=== PATIENT | male | born 1970 | race Caucasian/White ===

== ENCOUNTER 2018-10-09 14:51 | Emergency (ER) | payer BC, SELFPAY ==
[2018-10-09 14:52] VITALS: BP 132/71; PULSE 66; RESP 17; TEMP 36.3; O2SAT 98; BMI 23.7
--- NOTE | 2018-10-09 15:09 | CT_ITS ---
STUDY: CT ABDOMEN AND PELVIS WITH CONTRAST REASON FOR EXAM: Male, 48 years old. Abdominal pain and cramping RADIATION DOSAGE (If Supplied By Facility): CTDIvol = ( 11.66 ) mGy, DLP = ( 767.20 ) mGycm TECHNIQUE: Transaxial images were obtained from the dome of the diaphragm to the symphysis pubis with oral contrast. 100 ml of Isovue 300 contrast was administered. Sagittal and coronal images were reconstructed. Individualized dose optimization techniques were used for this CT. COMPARISON: Prior study of 06/04/2016 FINDINGS: The visualized lung bases are unremarkable. The visualized portions of the heart are within normal limits. Normal liver. Normal gallbladder and extrahepatic biliary system. Normal spleen. Normal pancreas. Normal bilateral adrenal glands. Normal right kidney. Normal left kidney. Normal visualized stomach. There is mild dilatation with air-fluid levels on several loops of small bowel in the right abdomen and pelvis. Evaluation of the colon is limited due to nonopacification with oral contrast. There are postsurgical changes of the anorectal region. Status post subtotal colectomy changes are again noted. Normal abdominal aorta. Normal inferior vena cava. Normal retroperitoneum. Normal urinary bladder. The prostate is mildly enlarged. There are postsurgical changes of the anterior right abdominal wall. There is a small fat-containing right inguinal hernia. There is again noted an intraosseous hemangioma of the L4 body. CT/Abdomen/Pelvis WITH Contrast IMPRESSION: 1. There is mild dilatation with air-fluid levels of several loops of small bowel in the right abdomen and pelvis, suggestive of focal ileus. 2. Status post subtotal colectomy. Postsurgical changes seen at the anorectal junction. 3. Mildly enlarged prostate. 4. Small fat-containing right inguinal hernia. 5. There is no evidence of free intra-abdominal or intrapelvic air, fluid, or inflammatory process. Electronically Signed: Cory Liu MD at 17:28 EST , Service support ,
--- NOTE | 2018-10-09 15:12 | ED.VISSUMM ---
- ER Visit Summary Date of Service: 10/09/18 Chief Complaint: Abdominal pain History of Present Illness: The patient is a 48 M presenting with abdominal pain, diarrhea. Patient states that he started having abdominal cramping on Saturday. He had diarrhea on Saturday and Saturday. The diarrhea has since stopped. He complains of nausea with no vomiting. He denies blood in his stool. He has history of ulcerative colitis. He has had a colectomy and pelvic pouch surgery to connect his small bowel to his rectum. He has history of previous small bowel obstructions. He denies fever or other complaints. Physical Examination: Vitals are stable. Patient is afebrile. Alert no acute distress. HEENT exam is unremarkable. Neck is supple. Lungs are clear and equal bilaterally. Heart is regular rate and rhythm. Abdomen is soft mild diffuse tenderness with no rebound or guarding Extremities are unremarkable. Skin is warm and dry. No focal neurologic deficit. Remainder of exam is unremarkable. Emergency Department Course and Treatment: Patient given IV fluids, Zofran, Dilaudid. CBC, chemistries unremarkable. Liver lipase are normal. Urinalysis unremarkable. CT abdomen pelvis IV and oral contrast shows there is mild dilatation with air-fluid levels of several loops of small bowel in the right abdomen and pelvis, suggestive of focal ileus. Status post subtotal colectomy. Postsurgical changes seen at the anorectal junction. Mildly enlarged prostate. Small fat-containing right inguinal hernia. There is no evidence of free intra-abdominal or intrapelvic air, fluid, or inflammatory process. On reevaluation, patient is feeling improved. He is given a prescription for Bentyl and Zofran. He is advised to follow-up with his GI physician in [place]. He is advised to return to ED if he has any worsening complaints. Disposition: Discharge home Impression: Abdominal pain, diarrhea, ileus This note was generated with [employer] dictation software. It may contain incorrect words, spelling, and punctuation that were not noted in review of the chart prior to signing ED Disposition - Plan for ED Patient: Chief Complaint: Abd Pain Instructions: ED Abdominal Pain Unkn Cause Prescriptions: Ondansetron [Zofran Odt] 4 mg PO Q8H PRN PRN #10 tablet PRN Reason: Nausea Dicyclomine HCl [Bentyl] 20 mg PO TIDAC #20 capsule Referrals: Brant Gotti MD [Primary Care Provider] -
--- NOTE | 2018-10-09 15:15 | ED.DCSUM_ITS ---
- ER Visit Summary Date of Service: 10/09/18 Chief Complaint: Abdominal pain History of Present Illness: The patient is a 48 M presenting with abdominal pain, diarrhea. Patient states that he started having abdominal cramping on Saturday. He had diarrhea on Saturday and Saturday. The diarrhea has since st opped. He complains of nausea with no vomiting. He denies blood in his stool. He has history of ulcerative colitis. He has had a colectomy and pelvic pouch surgery to connect his small bowel to his rectum. He has history of previous small bowel obstructions. He denies fever or other complaints. Physical Examination: Vitals are stable. Patient is afebrile. Alert no acute distress. HEENT exam is unremarkable. Neck is supple. Lungs are clear and equal bilaterally. Heart is regular rate and rhythm. Abdomen is soft mild diffuse tenderness with no rebound or guarding Extremities are unremarkable. Skin is warm and dry. No focal neurologic deficit. Remainder of exam is unremarkable. Emergency Department Course and Treatment: Patient given IV fluids, Zofran, Dilaudid. CBC, chemistries unremarkable. Liver lipase are normal. Urinalysis unremarkable. CT abdomen pelvis IV and oral contrast shows there is mild dilatation with air-fluid levels of several loops of small bowel in the right abdomen and pelvis, suggestive of focal ileus. Status post subtotal colectomy. Postsurgical changes seen at the anorectal junction. Mildly enlarged prostate. Small fat-containing right inguinal hernia. There is no evidence of free intra- abdominal or intrapelvic air, fluid, or inflammatory process. On reevaluation, patient is feeling improved. He is given a prescription for Bentyl and Zofran. He is advised to follow-up with his GI physician in [place]. He is advised to return to ED if he has any worsening complaints. Disposition: Discharge home Impression: Abdominal pain, diarrhea, ileus This note was generated with [employer] dictation software. It may contain incorrect words, spelling, and punctuation that were not noted in review of the chart prior to signing ED Disposition - Plan for ED Patient: Chief Complaint: Abd Pain Instructions: ED Abdominal Pain Unkn Cause Prescriptions: Ondansetron [Zofran Odt] 4 mg PO Q8H PRN PRN #10 tablet PRN Reason: Nausea Dicyclomine HCl [Bentyl] 20 mg PO TIDAC #20 capsule Referrals: Brant Gotti MD [Primary Care Provider] -
[2018-10-09 15:21] LABS: Absolute Lymphocyte Count 1.38 X10^3/ul (0.83-4.51); Basophil# 0.01 X10^3/uL; Basophil% 0.1 % (0-1); Eosinophil# 0.14 X10^3/uL; Hematocrit 45.2 % (40-54); Lymphocyte # 1.38 X10^3/ul (4.0); Lymphocyte % 19.7 % (19-41); Mean Corp Hgb Conc 33.2 g/gl (32-36); Mean Corpuscular Hgb 27.5 pg (27.0-32.0); Mean Corpuscular Volume 82.9 fL (80-94); Mean Platelet Vol. 9.9 fl (6.2-12.0); Monocyte# 0.44 X10^3/uL; Monocyte% 6.3 % (0-10); Neutrophil # 5.03 X10^3/uL (2.7-7.7); Neutrophil % 71.9 % (47-70); Platelet Count 175 K/mm3 (150-450); RBC Distribution Width CV 12.6 % (11.6-14.6); RBC Distribution Width SD 37.5 fl (35.1-43.9); Red Blood Count 5.45 M/mm3 (4.6-6.2)
[2018-10-09 15:29] LABS: POSITIVE COUNT NO; POSITIVE DIFFERENTIAL NO; POSITIVE MORPHOLOGY NO
[2018-10-09] MEDS: HYDROmorphone 1 MG/ML Syringe 0.5 MG IV (15:29)
[2018-10-09] MEDS: Ondansetron 4 MG/2 ML Vial IV (15:29)
[2018-10-09] MEDS: 0.9% Normal Saline 1,000 ML 1000 ML IV (15:30)
[2018-10-09 15:37] LABS: AST(SGOT) 21 U/L (15-37); Alanine Aminotransfer ALT/SGPT 38 U/L (16-61); Albumin, Serum 3.6 g/dL (3.2-5.0); Alkaline Phosphatase 78 U/L (45-117); Anion Gap 8 (5-15); BUN 12 mg/dL (7-18); BUN/Creat Ratio 14.9 RATIO (10-20); Bilirubin, Direct 0.11 mg/dL (0.00-0.30); Calcium,Total 8.8 mg/dL (8.5-10.1); Chloride 105 mmol/L (98-107); EST Glomerular Filtration Rate 109 mL/min (>60); Est Glom Filt Rate - Afr Amer 132 mL/min (>60); Estimated Creatinine Clearance 123.94 ml/min; Globulin 3.5 g/dL (2.2-4.2); Glucose 96 mg/dL (74-106); Lipase 119 U/L (73-393); Potassium 3.7 mmol/L (3.5-5.1); Protein, Total 7.1 g/dL (6.4-8.2); Sodium Level 140 mmol/L (136-145)
[2018-10-09 16:06] LABS: Bacteria 0 SEEN /hpf (None Seen); Mucous, Urine 0 SEEN /hpf (<or=2+); Red Blood Cells-Urine 0 SEEN /hpf (0-5); Squamous Epithelial Cells - UA 0 SEEN /hpf (0-5); White Blood Cells 0 SEEN /hpf (0-5)
[2018-10-09 16:16] VITALS: TEMP 36.8
[2018-10-09 16:18] LABS: Color, Urine Yellow (Yellow); Glucose, Dipstick Normal (Normal); Ketone-Dipstick 5 mg/dl (Negative); Leukocyte Esterase-Dipstick Negative /ul (Negative); Nitrite-Dipstick Negative (Negative); Occult Blood-Urine Negative /ul (Negative); Protein-Dipstick Negative (Negative); Urine Bilirubin Dipstick Negative (Negative); Urine Clarity Clear (Clear); Urine Urobilinogen Normal (Normal)
[2018-10-09 17:24] VITALS: BP 108/70; PULSE 66; RESP 18; TEMP 36.7; O2SAT 96
--- NOTE | 2018-10-09 17:43 | ED.DEP ---
ED Disposition - Plan for ED Patient: Chief Complaint: Abd Pain Instructions: ED Abdominal Pain Unkn Cause Prescriptions: Ondansetron [Zofran Odt] 4 mg PO Q8H PRN PRN #10 tablet PRN Reason: Nausea Dicyclomine HCl [Bentyl] 20 mg PO TIDAC #20 capsule Referrals: Brant Gotti MD [Primary Care Provider] -
[2018-10-09 18:01] VITALS: PULSE 66; RESP 18; TEMP 36.7
== END 2018-10-09 18:02 | disposition home or self-care (01) ==
PROVIDERS: Emergency Provider Emergency Medicine; Family Provider Family Medicine; PCP Family Medicine
DX: K56.7 Ileus, unspecified (principal); R10.84 Generalized abdominal pain; R19.7 Diarrhea, unspecified; Z90.49 Acquired absence of other specified parts of digestive tract; Z79.899 Other long term (current) drug therapy
CPT/HCPCS: 74177; 80048; 80076; 81001; 83690; 85025; 96361; 96374; 96375; 99283; J7030; Q9967; A4216; J2405

== ENCOUNTER → 2019-11-30 11:38 | Outpatient (CLI) | payer BC, SELFPAY ==
[2019-11-18 12:37] VITALS: BMI 23.7
--- NOTE | 2019-11-30 12:49 | STRESSREP ---
Stress Test Report Exercise stress test. 49-year-old man with a history of chest pain. Stress protocol: Resting EKG demonstrates normal sinus rhythm with a rate of 65 bpm normal intervals are noted resting blood pressure is 108/70 mmHg. The patient exercised according to the regular Geovany protocol for a total duration of 12 minutes and 20 seconds. The maximum heart rate attained was 173 bpm which was 101% of maximum predicted heart rate the maximum workload was 14 metabolic equivalents. The patient maintained sinus rhythm throughout the recording. At rest there were no ST or T wave changes noted to suggest ischemia at peak exercise upsloping ST changes were noted with no meet the criteria for ischemia. The resting blood pressure was 108/70 with a peak blood pressure 156/68. The rate-pressure product was 25,500. The test was terminated due to attainment of target heart rate. No clinical angina was noted no arrhythmias were noted. Conclusion: Normal exercise stress test with no evidence of ischemia at a high workload. No arrhythmias noted. Good functional capacity.
== END ==
PROVIDERS: PCP Family Medicine; Referring Provider Internal Medicine Cardiovascular Disease; Visit Provider Internal Medicine Cardiovascular Disease
DX: I48.0 Paroxysmal atrial fibrillation (principal)
CPT/HCPCS: 93017

== ENCOUNTER 2021-01-05 09:56 | Outpatient (RCR) | payer BC, SELFPAY ==
[2020-06-14 14:40] VITALS: BMI 24.1
[2021-01-05] MEDS: COVID-19 VACC, MRNA(PFIZER)/PF 30 MCG/0.3 ML SYRINGE IM (07:27)
[2021-01-26] MEDS: COVID-19 VACC, MRNA(PFIZER)/PF 30 MCG/0.3 ML SYRINGE IM (07:29)
== END 2021-01-05 23:59 ==
LOC: IMMUN 09:56
PROVIDERS: PCP Family Medicine; Visit Provider Family Medicine
DX: Z23 Encounter for immunization (principal)
CPT/HCPCS: 0001A; 0002A; 91300

== ENCOUNTER 2024-09-23 13:50 | Emergency (ER) | payer BC, SELFPAY ==
[2024-09-23 13:51] VITALS: BP 133/80; PULSE 73; RESP 16; TEMP 36.3; O2SAT 98; BMI 24.7
[2024-09-23 15:06] LABS: Absolute Lymphocyte Count 1.56 X10^3/uL (0.83-4.51); Absolute Neutrophil Count 3.5 X10^3/uL (2.0-7.7); Basophil# 0.02 X10^3/uL; Basophil% 0.4 % (0-1); Eosinophil# 0.13 X10^3/uL; Eosinophils% 2.3 % (0-5); Hematocrit 47.8 % (40-54); Hemoglobin 15.4 g/dL (13.0-16.5); Lymphocyte # 1.56 X10^3/ul (0.83-4.51); Lymphocyte % 27.9 % (19-41); Mean Corp Hgb Conc 32.2 g/dL (32-36); Mean Corpuscular Hgb 26.9 pg (27.0-32.0); Mean Corpuscular Volume 83.4 fL (80-94); Mean Platelet Vol. 10.1 fl (6.2-12.0); Monocyte# 0.36 X10^3/uL; Monocyte% 6.4 % (0-10); NRBC Flagged by Analyzer 0 % (0-5); Neutrophil # 3.49 X10^3/uL (2.7-7.7); Neutrophil % 62.5 % (47-70); Platelet Count 227 K/mm3 (150-450); RBC Distribution Width CV 12.4 % (11.6-14.6); RBC Distribution Width SD 37.5 fl (35.1-43.9); Red Blood Count 5.73 M/mm3 (4.6-6.2); White Blood Count 5.6 K/mm3 (4.4-11.0)
[2024-09-23 15:19] LABS: AST(SGOT) 16 U/L (15-37); Alanine Aminotransfer ALT/SGPT 43 U/L (16-61); Albumin, Serum 3.8 g/dL (3.2-5.0); Alkaline Phosphatase 90 U/L (45-117); Anion Gap 4 (5-15); BUN 11 mg/dL (7-18); BUN/Creat Ratio 12.7 RATIO (10-20); Chloride 106 mmol/L (98-107); Creatinine, Serum 0.87 mg/dL (0.70-1.30); EST Glomerular Filtration Rate 97 mL/min (>60); Est Glom Filt Rate - Afr Amer 118 mL/min (>60); Estimated Creatinine Clearance 106.54 ml/min; Globulin 3.7 g/dL (2.2-4.2); Glucose 97 mg/dL (74-106); Potassium 4.3 mmol/L (3.5-5.1); Protein, Total 7.5 g/dL (6.4-8.2); Sodium Level 139 mmol/L (136-145)
--- NOTE | 2024-09-23 15:35 | CT_ITS ---
STUDY: CT ABDOMEN AND PELVIS WITH CONTRAST REASON FOR EXAM: Male, 54 years old. abdominal pain RADIATION DOSAGE (If Supplied By Facility): CTDIvol = ( 10.42 ) mGy, DLP = ( 569.75 ) mGycm TECHNIQUE: Transaxial images were obtained from the dome of the diaphragm to the symphysis pubis with oral contrast. Oral and amp; IV Gastrografin and amp; 100mL Isovue-300 was administered. Sagittal and coronal images were reconstructed. Individualized dose optimization techniques were used for this CT. COMPARISON: 10/09/2018. FINDINGS: The visualized lung bases are unremarkable. The visualized portions of the heart are within normal limits. Normal liver. Normal gallbladder and extrahepatic biliary system. Normal spleen. Normal pancreas. Normal bilateral adrenal glands. Normal right kidney. Normal left kidney. Cannot exclude stomach wall thickening. No dilated loops of bowel or evidence for obstruction. There has been subtotal colectomy. Normal appearance of the small bowel. No evidence of bowel wall thickening. Absent appendix. Normal abdominal aorta. Normal inferior vena cava. Normal retroperitoneum. Normal urinary bladder. There is enlargement of the prostate gland. Surgical deformity of the right lower abdominal wall, stable and consistent with previous ostomy. No incisional hernia. There is a right-sided inguinal hernia containing adipose tissue. Normal osseous structures. CT/Abdomen/Pelvis WITH Contrast IMPRESSION: Patient is status post subtotal colectomy. Only the rectum remains. The small bowel is normal in caliber and appearance. No other definite acute or significant abnormality seen. Electronically Signed: Jesse Gonzalez MD at 17:55 EST ,
--- NOTE | 2024-09-23 15:37 | EDS_ITS ---
HPI HPI - GI History of Present Illness Chief Complaint: Abd Pain Detail of Chief Complaint: Abdominal pain Informant: patient Narrative Narrative: Patient presents with abdominal pain that he initially noticed around Thanksgiving and at that time had a sharp pain in the lower abdomen that then resolved. He is progressively had lower abdomen pain since then that became worse. Since around 10 AM now the pain in the upper abdomen. Patient has history of ulcerative colitis and has a J-pouch currently. Patient denies any fevers. He said no vomiting. Denies any blood or black tarry stool. He was seen by primary care physician today in the office and referred to the emergency department. Patient has had prior surgeries for adhesions. His initial colectomy was done in [facility] and subsequent surgeries were done in [facility]. [facility] Medical History BPH (benign prostatic hyperplasia) History of ulcerative colitis Nonrheumatic mitral (valve) prolapse Paroxysmal atrial fibrillation Premature ventricular contractions Recurrent intestinal obstruction VSD (ventricular septal defect) Home Medications ?Medication ?Instructions ?Recorded ?Last Taken ?Type Lactobacills gasseri-Bifidobac 1 cap PO DAILY 06/19/22 Unknown History bifidum,longum 1.5 billion cell capsule (TextualAds) glucosamine sulfate 2KCl 1,000 mg 2,000 mg PO DAILY 06/19/22 Unknown History tablet (Glucosamine Relief) atenolol 25 mg tablet 12.5 mg (1/2 x 25 mg) PO .PRN PRN 09/07/24 Unknown Rx Elevated Heart Rate #30 tabs flecainide 100 mg tablet 100 mg PO .PRN PRN A-fib #14 tabs 09/07/24 Unknown Rx Allergy/AdvReac Type Severity Reaction Status Date / Time Penicillins Allergy Hives Verified 09/23/24 13:51 propoxyphene napsylate (From Allergy Hives Verified 09/23/24 13:51 Darvocet-N) metronidazole (From Flagyl) AdvReac Vomiting Verified 09/23/24 13:51 Family History Father Hypertension Grandfather Heart disease CVA (cerebral vascular accident) Grandmother CVA (cerebral vascular accident) Surgical History Na's pouch of intestine History of colectomy History of open reduction and internal fixation (ORIF) procedure Social History Smoking Status: Never smoker alcohol intake: never substance use type: does not use caffeine: No ROS ROS ED Review of Systems ROS Unobtainable: other Constitutional Constitutional ED: Reports lethargy; Denies chills, fever(s), sweats or weight loss Eyes Eyes: Denies blurry vision, change in vision or diplopia ENT ENT ED: Denies rhinorrhea or sore throat Cardiovascular Cardiovascular: Denies chest pain, orthopnea or racing heartbeat Respiratory/Chest Respiratory/Chest: Denies cough, dyspnea, dyspnea on exertion, orthopnea or sputum Gastrointestinal Gastrointestinal: Reports abdominal pain; Denies diarrhea, nausea or vomiting Genitourinary Genitourinary ED: Denies dysuria, hematuria or urinary frequency Musculoskeletal Musculoskeletal: Denies arthralgias, back pain, myalgias or neck pain Integumentary Denies abscess, Abrasions or rash Neurologic Neurologic: Denies headache(s) or weakness Psychiatric Psychiatric: Denies anxiety, depression or suicidal thoughts Endocrine Endocrinology: Denies polydipsia, polyphagia or polyuria Hematologic/Lymphatic Hematologic/Lymphatic: Denies easy bleeding, easy bruising or lymphadenopathy Allergic/Immunologic Allergic/Immunologic ED: Denies mouth swelling, tongue swelling or urticaria EXAM Physical Exam Const Vital Signs: 09/23/24 13:51 09/23/24 15:50 09/23/24 17:00 Temperature 97.3 F L Temperature Source Temporal Pulse Rate 73 82 75 Respiratory Rate 16 18 18 Blood Pressure 133/80 H Blood Pressure Mean 97 Pulse Ox 98 98 98 Oxygen Delivery Method Room Air Room Air Room Air Positive well nourished and well developed General Appearance ED: well developed and NAD HEENT Reports TM's clear and moist mucous membranes normocephalic and atraumatic; Negative for trauma or tenderness Tympanic Membrane ED: Yes TM's clear Eyes PERRL and EOMs intact bilaterally General Eye ED: Negative for pale conjunctiva or scleral icterus Neck no lymphadenopathy, supple and no JVD General: Negative for tenderness Chest Wall inspection of chest normal and palpation of chest normal Chest: Negative for tenderness Resp normal respiratory effort and clear to auscultation bilaterally Effort and Inspection: Negative for respiratory distress or pain with movement Auscultation: Negative for rhonchi, wheezes or diminished lung sounds Cardio regular rate, regular rhythm, S1 normal heart sound, S2 normal heart sound and no murmurs Peripheral Pulses: pulses 2+ throughout GI normal to inspection, nondistended, normoactive bowel sounds, soft to palpation and no masses GI Narrative: Tenderness diffusely with some guarding to the lower abdomen. There is no rebound, rigidity, or peritoneal signs. No masses palpated. Back/Spine no CVA tenderness and no thoracic nor lumbar tenderness Extremity normal to inspection General Extremety ED: Negative for edema General Extremity: Negative for edema Neuro oriented x3, CN's II-XII intact bilaterally, no sensory deficits noted and gait normal Sensorium / Orientation: awake, alert, oriented to person, oriented to place and oriented to time Motor Exam: strength 5/5 throughout and strength abnormal Psych mental status grossly normal Skin no rashes or lesions noted and no wounds MDM MDM MDM Narrative Medical decision making narrative: Patient presents with abdominal pain since 10 AM. Started few days ago initially but became worse at 10 AM. He has had no significant vomiting. Still having stool from his rectum without any blood in it or black tarry stool. IV line established. CBC with differential obtained showing a 5.6 with hemoglobin 15 and platelet count of 227. Chemistries unremarkable. LFTs were normal. Lactate normal at 1.0. Urinalysis was normal. Patient had a CT scan of the abdomen pelvis with IV and p.o. contrast that was unremarkable. This point patient will be discharged to home. He was given initially 2 mg of morphine and 4 mg of Zofran and his pain was resolved. Etiology of his pain is unclear. Advised to follow-up with his primary care physician within next 3 to 5 days. Patient advised return if worsening pain, fever, vomiting, bloody stools, or condition worsening way. Lab Data Attestation: I reviewed the patient's lab results. Labs: Laboratory Results - last 24 hr 09/23/24 09/23/24 14:50 15:47 WBC 5.6 RBC 5.73 Hgb 15.4 Hct 47.8 MCV 83.4 MCH 26.9 L MCHC 32.2 RDW Std Deviation 37.5 RDW Coeff of [place] 12.4 Plt Count 227 MPV 10.1 Immature Gran % (Auto) 0.500 Neut % (Auto) 62.5 Lymph % (Auto) 27.9 [place] % (Auto) 6.4 Eos % (Auto) 2.3 Baso % (Auto) 0.4 Absolute Neuts (auto) 3.5 Absolute Lymphs (auto) 1.56 Nucleated RBC % 0 Sodium 139 Potassium 4.3 Chloride 106 Carbon Dioxide 29.0 Anion Gap 4 L BUN 11 Creatinine 0.87 Estim Creat Clear Calc 106.54 Est GFR (MDRD) Af Amer 118 Est GFR (MDRD) Non-Af 97 BUN/Creatinine Ratio 12.7 Glucose 97 Lactic Acid 1.0 Calcium 9.0 Total Bilirubin 0.30 AST 16 ALT 43 Alkaline Phosphatase 90 Total Protein 7.5 Albumin 3.8 Globulin 3.7 Albumin/Globulin Ratio 1.0 Urine Color Yellow Urine Clarity Clear Urine pH 6.0 Ur Specific [place] 1.020 Urine Protein 15 H Urine Glucose (UA) Normal Urine Ketones Negative Urine Occult Blood Negative Urine Nitrite Negative Urine Bilirubin Negative Urine Urobilinogen Normal Ur Leukocyte Esterase Negative Urine RBC 0 SEEN Urine WBC 0-5 SEEN Ur Squamous Epith Cells 0-5 SEEN Urine Bacteria 1+ Urine Mucus 2+ Radiography Diagnostic Testing: Clinical Impression(s) from Imaging Studies Abdomen/Pelvis CT 09/23/24 15:35 IMPRESSION: Patient is status post subtotal colectomy. Only the rectum remains. The small bowel is normal in caliber and appearance. No other definite acute or significant abnormality seen. Electronically Signed: Jesse Gonzalez MD at 17:55 EST Reading Location ID and State: [facility] / [place] , Service support , Discharge Plan Triage Chief Complaint: Abd Pain ED Provider: Hitesh Parson Dx/Rx/DC Orders Clinical Impression: Abdominal pain Instructions: ED Abdominal Pain Unkn Cause Male... Prescriptions: No Action glucosamine sulfate 2KCl [Glucosamine Relief] 1,000 mg tablet 2,000 mg PO DAILY Rx Instructions: administer with meals TextualAds 1.5 billion cell capsule 1 cap PO DAILY atenolol 25 mg tablet 12.5 mg PO .PRN PRN (Reason: Elevated Heart Rate) Qty: 30 1RF flecainide 100 mg tablet 100 mg PO .PRN PRN (Reason: A-fib) Qty: 14 1RF Primary Care Provider: Jose Angel Alexandre Referrals: Jose Angel Alexandre MD [Primary Care Provider] - 3-5 Days Print Language: Turkmen Disposition Disposition: Home, Self Care
[2024-09-23] MEDS: Ondansetron 4 MG/2 ML Vial IV (15:49)
[2024-09-23 15:50] VITALS: PULSE 82; RESP 18; O2SAT 98
[2024-09-23] MEDS: Morphine 2 MG/ML Syringe IV (15:50)
[2024-09-23 15:59] LABS: Red Blood Cells-Urine 0 SEEN /hpf (0-5)
[2024-09-23 16:05] LABS: Color, Urine Yellow (Yellow); Glucose, Dipstick Normal (Normal); Ketone-Dipstick Negative (Negative); Leukocyte Esterase-Dipstick Negative /ul (Negative); Nitrite-Dipstick Negative (Negative); Occult Blood-Urine Negative /ul (Negative); Protein-Dipstick 15 mg/dl (Negative); Urine Bilirubin Dipstick Negative (Negative); Urine Clarity Clear (Clear); Urine Urobilinogen Normal (Normal)
[2024-09-23 16:22] LABS: Bacteria 1+ /hpf (None Seen); Mucous, Urine 2+ /hpf (<or=2+); Squamous Epithelial Cells - UA 0-5 SEEN /hpf (0-5); White Blood Cells 0-5 SEEN /hpf (0-5)
[2024-09-23 17:00] VITALS: PULSE 75; RESP 18; O2SAT 98
[2024-09-23 18:47] VITALS: PULSE 59; RESP 18; TEMP 36.4; O2SAT 97
== END 2024-09-23 18:48 | disposition home or self-care (01) ==
PROVIDERS: Emergency Provider Emergency Medicine; PCP Family Medicine; Visit Provider Emergency Medicine
DX: R10.10 Upper abdominal pain, unspecified (principal); Z93.4 Other artificial openings of gastrointestinal tract status; K51.90 Ulcerative colitis, unspecified, without complications; Z88.0 Allergy status to penicillin; Z88.1 Allergy status to other antibiotic agents; Z87.19 Personal history of other diseases of the digestive system; Z90.49 Acquired absence of other specified parts of digestive tract
CPT/HCPCS: 74177; 80053; 81001; 83605; 85025; 96374; 96375; 99283; A4216; J2405

== ENCOUNTER → 2025-01-14 | Outpatient (CLI) | payer BC, SELFPAY ==
--- NOTE | 2025-01-14 09:52 | ECHOD_ITS ---
Reason For Study Reason For Study: ATRIAL FIB/FLUTTER Procedure This was a 2D Doppler, Color Flow transthoracic echocardiogram. Exam performed in department. Left Ventricle Normal LV size. Mild concentric left ventricular hypertrophy. Small membranous VSD noted. Left ventricular systolic function is normal. The left ventricular ejection fraction is 65 %. No regional wall motion abnormalities noted. Right Ventricle Normal RV size. Normal systolic function. Atria Normal left atrium. Normal right atrium. Mitral Valve Normal mitral valve. Tricuspid Valve Normal tricuspid valve. Aortic Valve Trisinus/trileaflet aortic valve. Pulmonic Valve Normal pulmonic valve. Great Vessels Normal aortic root. The pulmonary artery is normal size. Inferior vena cava collapse with respiration. Pericardium/Pleural No pericardial effusion. MMode/2D Measurements & Calculations LVIDd: 4.2 cm IVSd: 1.2 cm LAV(MOD- bp): 53.9 ml LVIDs: 3.1 cm LVPWd: 1.2 cm LAV(MOD- bp) Indexed: 26.5 ml/m2 RVDd: 4.0 cm FS: 25.2 % LAV(MOD- sp2): 50.8 ml LAV(MOD- sp4): 43.7 ml SV(MOD- sp4): 46.7 ml LVAd ap4: 25.1 cm2 LVAd ap2: 27.2 cm2 LVLd ap4: 7.6 cm LVLd ap2: 8.0 cm SI(MOD- sp4): 23.0 ml/m2 EDV(MOD-sp4): 70.4 ml EDV(MOD-sp2): 76.1 ml EDV(sp4-el): 71.0 ml EDV(sp2-el): 78.1 ml LVAs ap4: 12.3 cm2 LVAs ap2: 14.6 cm2 LVLs ap4: 5.6 cm LVLs ap2: 6.7 cm ESV(MOD-sp4): 23.6 ml ESV(MOD-sp2): 27.1 ml ESV(sp4-el): 23.0 ml ESV(sp2-el): 26.7 ml EF(MOD-sp4): 66.4 % EF(MOD-sp2): 64.4 % EF(sp4-el): 67.7 % SV(MOD-sp2): 49.1 ml SV(sp4-el): 48.0 ml LA A4 area: 14.8 cm2 SI(MOD-sp2): 24.1 ml/m2 LA dimension(2D): 2.9 cm TAPSE: 2.2 cm RA A4 area: 12.7 cm2 Time Measurements MV dec time: 0.22 sec Doppler Measurements & Calculations MV E max darius: 64.5 cm/sec Lat Peak E' Darius: 7.3 cm/sec Med Peak E' Darius: 9.1 cm/sec MV A max darius: 43.0 cm/sec E/E' lat: 8.8 E/E' med: 7.1 MV E/A: 1.5 MV V2 max: 64.7 cm/sec MV P1/2t max darius: 68.5 cm/sec Ao V2 max: 85.4 cm/sec MV max P.7 mmHg MV P1/2t: 51.0 msec Ao max P.9 mmHg MV V2 mean: 37.9 cm/sec MV dec slope: 393.0 cm/sec2 Ao V2 mean: 62.8 cm/sec MV mean P.65 mmHg Ao mean P.7 mmHg MV V2 VTI: 17.1 cm MVA(P1/2t): 4.3 cm2 Ao V2 VTI: 16.9 cm AV (velocity ratio): 0.90 LV V1 max: 80.9 cm/sec PA V2 max: 143.3 cm/sec LV V1 max P.6 mmHg PA V2 mean: 100.4 cm/sec LV V1 mean P.4 mmHg LV V1 mean: 55.2 cm/sec LV V1 VTI: 15.2 cm ECHO/Echo Complete Interpretation Summary Normal LV size. Left ventricular systolic function is normal. The left ventricular ejection fraction is 65 %. Small membranous VSD noted. Ordering Physician: Hugo Duran Referring Physician: Klever Alexandre Performed By: Marii Martinez, MAVISCS, RVT
== END | disposition home or self-care (01) ==
PROVIDERS: PCP Family Medicine; Referring Provider Internal Medicine Cardiovascular Disease; Visit Provider Internal Medicine Cardiovascular Disease
DX: I48.0 Paroxysmal atrial fibrillation (principal)
CPT/HCPCS: 93306

== ENCOUNTER 2025-04-16 17:59 | Observation (INO) | payer BC, SELFPAY ==
[2025-04-16] VITALS (9 sets, daily range): BP systolic 84–109; BP diastolic 63–77; PULSE 57–128; RESP 14–20; TEMP 36.4–36.8; O2SAT 95–98; BMI 24.0; BMI 23.8
[2025-04-16] MEDS: 0.9% Normal Saline (1000mL) 1,000 ML 999 ML IV (18:00)
[2025-04-16 18:16] LABS: Absolute Lymphocyte Count 2.45 X10^3/uL (0.83-4.51); Absolute Neutrophil Count 6.1 X10^3/uL (2.0-7.7); Basophil# 0.07 X10^3/uL; Basophil% 0.7 % (0-1); Eosinophil# 0.28 X10^3/uL; Hematocrit 49.6 % (40-54); Hemoglobin 16.5 g/dL (13.0-16.5); Lymphocyte # 2.45 X10^3/ul (0.83-4.51); Lymphocyte % 25.9 % (19-41); Mean Corp Hgb Conc 33.3 g/dL (32-36); Mean Corpuscular Hgb 27.3 pg (27.0-32.0); Mean Corpuscular Volume 82.1 fL (80-94); Mean Platelet Vol. 10.1 fl (6.2-12.0); Monocyte# 0.57 X10^3/uL; NRBC Flagged by Analyzer 0 % (0-5); Neutrophil # 6.06 X10^3/uL (2.7-7.7); Platelet Count 253 K/mm3 (150-450); RBC Distribution Width CV 12.5 % (11.6-14.6); RBC Distribution Width SD 37.1 fl (35.1-43.9); Red Blood Count 6.04 M/mm3 (4.6-6.2); White Blood Count 9.5 K/mm3 (4.4-11.0)
--- NOTE | 2025-04-16 18:20 | RAD_ITS ---
PROCEDURE: CHEST 1 VIEW (PORTABLE) 04/16/2025 REASON FOR EXAM: CHEST PAIN TECHNIQUE: Frontal view of the chest. COMPARISON: None. FINDINGS: Hardware: None. Heart: The heart size is normal. Lungs: No consolidation, pleural effusion or pneumothorax. Bones: Degenerative changes are identified within the thoracic spine. RAD/Chest 1 View (Portable) IMPRESSION: Negative Chest. Reading Location: [id number]
--- NOTE | 2025-04-16 18:33 | EDS_ITS ---
HPI History of Present Illness Chief Complaint: Palpitations Detail of Chief Complaint: Palpitations with history of A-fib Informant: patient Narrative Narrative: Patient presents the emergency department complaint of palpitations and history of atrial fibrillation. Patient thinks he went in A-fib last evening around 11:30 PM. He took atenolol at home and flecainide that he takes as needed and this did not resolve the issue and he presents for evaluation. His last episode of A-fib was about 6 months ago and that was abated with medications at home. Prior to that his last episode was over 10 years ago and at that time he needed a cardioversion. He is not anticoagulated. He denies any significant chest discomfort. Denies shortness of breath. Denies recent illness. [facility] Medical History Nonrheumatic mitral (valve) prolapse Premature ventricular contractions BPH (benign prostatic hyperplasia) VSD (ventricular septal defect) Paroxysmal atrial fibrillation Recurrent intestinal obstruction History of ulcerative colitis Home Medications Medication Instructions Recorded Last Taken Type glucosamine sulfate 2KCl 1,000 mg 2,000 mg PO DAILY Unknown History tablet (Glucosamine Relief) atenolol 25 mg tablet 12.5 mg (1/2 x 25 mg) PO .MO N PRN 09/07/24 Unknown Rx Elevated Heart Rate #30 tabs flecainide 100 mg tablet 100 mg PO .PRN PRN A-fib #14 tabs 09/07/24 Unknown Rx Lactobacills gasseri-Bifidobac 1 cap PO DAILY PRN Blink for iPhone and Android health 11/12/24 Unknown History bifidum,longum 1.5 billion cell capsule ([employer]) omeprazole 40 mg capsule,delayed 20 mg PO DAILY Unknown History release multivitamin 1 tab PO QAM 04/16/25 Unknow n History Allergy/AdvReac Type Severity Reaction Status Date / Time Penicillins Allergy Hives Verified 04/16/25 17:59 propoxyphene napsylate (From Allergy Hives Verified 04/16/25 17:59 Darvocet-N) metronidazole (From Flagyl) AdvReac Vomiting Verified 04/16/25 17:59 Family History Father Hypertension Grandfather Heart disease CVA (cerebral vascular accident) Grandmother CVA (cerebral vascular accident) Surgical History History of open reduction and internal fixation (ORIF) procedure Na's pouch of intestine History of colectomy Social History Smoking Status: Never smoker alcohol intake: never substance use type: does not use caffeine: No ROS ROS ED Review of Systems ROS Unobtainable: other Constitutional Constitutional ED: Reports lethargy; Denies chills, fever(s), sweats or weight loss Eyes Eyes: Denies blurry vision, change in vision or diplopia ENT ENT ED: Denies rhinorrhea or sore throat Cardiovascular Cardiovascular: Reports palpitations and racing heartbeat; Denies chest pain or orthopnea Respiratory/Chest Respiratory/Chest: Denies cough, dyspnea, dyspnea on exertion, orthopnea or sputum Gastrointestinal Gastrointestinal: Denies abdominal pain, diarrhea, nausea or vomiting Genitourinary Genitourinary ED: Denies dysuria, hematuria or urinary frequency Musculoskeletal Musculoskeletal: Denies arthralgias, back pain, myalgias or neck pain Integumentary Denies abscess, Abrasions or rash Neurologic Neurologic: Denies headache(s) or weakness Psychiatric Psychiatric: Denies anxiety, depression or suicidal thoughts Endocrine Endocrinology: Denies polydipsia, polyphagia or polyuria Hematologic/Lymphatic Hematologic/Lymphatic: Denies easy bleeding, easy bruising or lymphadenopathy Allergic/Immunologic Allergic/Immunologic ED: Denies mouth swelling, tongue swelling or urticaria EXAM Physical Exam Const Vital Signs: 04/16/25 17:59 04/16/25 18:17 04/16/25 18:46 Temperature 97.8 F Temperature Source Oral Pulse Rate 63 64 Respiratory Rate 18 16 Respiratory Effort Normal Non-Labored Blood Pressure 107/75 85/66 L Blood Pressure Mean 85 72 Pulse Ox 97 96 Oxygen Delivery Method Room Air Room Air 04/16/25 18:51 04/16/25 18:54 04/16/25 19:02 Temperature Temperature Source Pulse Rate 60 65 57 L Respiratory Rate 16 14 18 Respiratory Effort Blood Pressure 89/64 L 84/72 L 93/67 Blood Pressure Mean 72 76 75 Pulse Ox 98 95 96 Oxygen Delivery Method Room Air Room Air Room Air 04/16/25 19:17 Temperature Temperature Source Pulse Rate 65 Respiratory Rate 14 Respiratory Effort Blood Pressure 90/63 Blood Pressure Mean 72 Pulse Ox 96 Oxygen Delivery Method Room Air Positive well nourished and well developed General Appearance ED: well developed and NAD HEENT Reports TM's clear and moist mucous membranes normocephalic and atraumatic; Negative for trauma or tenderness Tympanic Membrane ED: Yes TM's clear Eyes PERRL and EOMs intact bilaterally General Eye ED: Negative for pale conjunctiva or scleral icterus Neck no lymphadenopathy, supple and no JVD General: Negative for tenderness Chest Wall inspection of chest normal and palpation of chest normal Chest: Negative for tenderness Resp normal respiratory effort and clear to auscultation bilaterally Effort and Inspection: Negative for respiratory distress or pain with movement Auscultation: Negative for rhonchi, wheezes or diminished lung sounds Cardio regular rhythm, S1 normal heart sound, S2 normal heart sound and no murmurs; Negative for regular rate Rate: tachycardic Rhythm: abnormal rhythm irregularly irregular Peripheral Pulses: pulses 2+ throughout GI normal to inspection, nondistended, normoactive bowel sounds, soft to palpation, non-tender, non-distended and no masses Back/Spine no CVA tenderness and no thoracic nor lumbar tenderness Extremity normal to inspection General Extremety ED: Negative for edema General Extremity: Negative for edema Neuro oriented x3, CN's II-XII intact bilaterally, no sensory deficits noted and gait normal Sensorium / Orientation: awake, alert, oriented to person, oriented to place and oriented to time Motor Exam: strength 5/5 throughout and strength abnormal Psych mental status grossly normal Skin no rashes or lesions noted and no wounds MDM MDM MDM Narrative Medical decision making narrative: Patient presents to the emergency department complaint of palpitations. History of paroxysmal A-fib. He attempted using atenolol at home and flecainide as instructed and without resolution of his symptoms. Established. EKG obtained on arrival shows atrial fibrillation with ventricular rate of 123 bpm with no acute ST segment changes. CBC with differential shows a white count of 9.5 with hemoglobin 16 and platelet count of 253. Chemistries unremarkable. Troponin was less than 6. Magnesium normal at 1.8. Lab Data Attestation: I reviewed the patient's lab results. Labs: Laboratory Results - last 24 hr 06/27/25 18:10 WBC 9.5 RBC 6.04 Hgb 16.5 Hct 49.6 MCV 82.1 MCH 27.3 MCHC 33.3 RDW Std Deviation 37.1 RDW Coeff of [place] 12.5 Plt Count 253 MPV 10.1 Immature Gran % (Auto) 0.400 Neut % (Auto) 64.0 Lymph % (Auto) 25.9 [place] % (Auto) 6.0 Eos % (Auto) 3.0 Baso % (Auto) 0.7 Absolute Neuts (auto) 6.1 Absolute Lymphs (auto) 2.45 Nucleated RBC % 0 Sodium 138 Potassium 4.0 Chloride 104 Carbon Dioxide 23.1 Anion Gap 12 BUN 11 Creatinine 0.97 Estim Creat Clear Calc 94.44 Est GFR (MDRD) Non-Af 92 BUN/Creatinine Ratio 11.5 Glucose 138 H Calcium 9.3 Magnesium 1.8 Troponin T High Sens < 6 Radiography Diagnostic Testing: Clinical Impression(s) from Imaging Studies Chest X-Ray 04/16/25 18:20 IMPRESSION: Negative Chest. Reading Location: [facility] 1 view chest x-ray obtained interpreted by myself as no evidence of infiltrate or pneumothorax or acute disease process. Radiology in agreement EKG Initial EKG: Attestation: I personally reviewed and interpreted this EKG as follows: Discharge Plan Dx/Rx/DC Orders Clinical Impression: Atrial fibrillation with RVR Disposition Disposition: Acute Care [facility]
[2025-04-16 18:45] LABS: Troponin T High Sensitivity < 6 ng/L (<=22)
[2025-04-16] MEDS: dilTIAZem 25 MG/5 ML Vial 20 MG IV BOLUS (18:45)
[2025-04-16 18:47] LABS: Anion Gap 12 (5-15); BUN 11 mg/dL (4-19); BUN/Creat Ratio 11.5 RATIO (10-20); Calcium,Total 9.3 mg/dL (7.6-11.0); Carbon Dioxide 23.1 mmol/L (21.0-32.0); Chloride 104 mmol/L (98-108); Creatinine, Serum 0.97 mg/dL (0.70-1.20); EST Glomerular Filtration Rate 92 (>60); Estimated Creatinine Clearance 94.44 ml/min (50-250); Glucose 138 mg/dL (70-99); Sodium Level 138 mmol/L (133-145)
[2025-04-16 19:04] LABS: Magnesium 1.8 mg/dL (1.5-2.2)
--- NOTE | 2025-04-16 20:18 | PCM.HP.STD ---
HPI - General General Date of Admission: 04/16/25 Date of Service: 04/16/25 Chief Complaint: Palpitations HPI Narrative The patient is a 55 y/o M w/ PMHx: PAF, VSD, Valvular Heart Disease, Hx recurrent SBO w/ Ulcerative colitis s/p prior colectomy who presents to the [facility] ED on 04/16/2025 with history of suspecting onset of palpitations at approximately 11:30 PM the evening prior bleeding he went into A-fib prompting him to take his home atenolol and flecainide however did not resolve prompting eventual ED evaluation noting that his last issue with rate control was approximately 6 months prior however it abated with medications alone at home. He notes feeling fatigued with the sensation of palpitations and racing heart but no chest pain or dyspnea associated only mild onset of lightheadedness when he was exerting himself and going up and down the stairs but otherwise at rest he did not have it. Workup in the ED included T97.8, heart 63, BP 107/75, respiratory rate 18, 97% on room air with BP during ED evaluation trending down as low as 84/72 however MAP remained 76, current vital signs heart rate 65, BP 90/63, respiratory rate 14, 96% on room air, CBC with WBC 9.5, hemoglobin 16.5, MCV 82.1, platelet 253 without marked shift, BMP with glucose 138 otherwise unremarkable, magnesium 1.8, troponin less than 6 with repeat delta pending upon request evaluation of patient, chest x-ray with no acute cardiopulmonary findings, EKG with atrial fibrillation initially rate 123 with no acute evidence of ischemia. In the ED patient administered diltiazem bolus 20 mg IV x 1 and 1 L normal saline. ED discussed case with Dr. Osorio. [facility] Medical History Nonrheumatic mitral (valve) prolapse Premature ventricular contractions BPH (benign prostatic hyperplasia) VSD (ventricular septal defect) Paroxysmal atrial fibrillation Recurrent intestinal obstruction History of ulcerative colitis Home Medications Medication Instructions Recorded Last Taken Type glucosamine sulfate 2KCl 1,000 mg 2,000 mg PO DAILY 06/19/22 Unknown History tablet (Glucosamine Relief) atenolol 25 mg tablet 12.5 mg (1/2 x 25 mg) PO .PRN PRN 09/07/24 Unknown Rx Elevated Heart Rate #30 tabs flecainide 100 mg tablet 100 mg PO .PRN PRN A-fib #14 tabs 09/07/24 Unknown Rx Lactobacills gasseri-Bifidobac 1 cap PO DAILY PRN gut health 11/12/24 Unknown History bifidum,longum 1.5 billion cell capsule ([employer]) omeprazole 40 mg capsule,delayed 20 mg PO DAILY 11/12/24 Unknown History release multivitamin 1 tab PO QAM 04/16/25 Unknown History Allergy/AdvReac Type Severity Reaction Status Date / Time Penicillins Allergy Hives Verified 04/16/25 17:59 propoxyphene napsylate (From Allergy Hives Verified 04/16/25 17:59 Darvocet-N) metronidazole (From Flagyl) AdvReac Vomiting Verified 04/16/25 17:59 Family History (Updated 04/16/25 @ 20:[address] Birgit Lyle MD) Father Hypertension Grandfather Heart disease CVA (cerebral vascular accident) Grandmother CVA (cerebral vascular accident) Mother CAD (coronary artery disease) Heart disease Hypertension GERD (gastroesophageal reflux disease) Anxiety and depression Surgical History History of open reduction and internal fixation (ORIF) procedure Na's pouch of intestine History of colectomy Social History (Updated 04/16/25 @ 20:[address] Birgit Lyle MD) household members: spouse and family Smoking Status: Never smoker alcohol intake: never substance use type: does not use caffeine: No ROS ROS Narrative Admission Review of Systems: CONSTITUTIONAL: No weight loss, fever, chills, + weakness or fatigue. HEENT: + Lightheadedness. Eyes: No visual loss, blurred vision, double vision or yellow sclerae. Ears, Nose, Throat: No hearing loss, sneezing, congestion, runny nose or sore throat. SKIN: No rash or itching, lesions, wounds. CARDIOVASCULAR: + Palpitations, racing heart, lightheadedness. No chest pain, chest pressure or chest discomfort, edema, orthopnea, syncopal events. RESPIRATORY: No shortness of breath, cough or sputum, wheezing, hemoptysis. GASTROINTESTINAL: No anorexia, nausea, vomiting or diarrhea, abdominal pain, melena, BRBPR. GENITOURINARY: No dysuria, frequency, urgency or retention. NEUROLOGICAL: + Lightheadedness. No headache, dizziness, syncope, paralysis, ataxia, numbness or tingling in the extremities, focal weakness, change in bowel or bladder control, seizure. MUSCULOSKELETAL: No muscle, back pain, joint pain or stiffness. HEMATOLOGIC: No anemia, bleeding or bruising. LYMPHATICS: No enlarged nodes. No history of splenectomy. PSYCHIATRIC: No history of depression or anxiety. ENDOCRINOLOGIC: No reports of sweating, cold or heat intolerance. No polyuria or polydipsia. ALLERGIES: No history of asthma, hives, eczema or rhinitis. Vital Signs Vital Signs Vital Signs: 04/16/25 17:59 04/16/25 18:17 04/16/25 18:46 Temperature 97.8 F Temperature Source Oral Pulse Rate 63 64 Respiratory Rate 18 16 Respiratory Effort Normal Non-Labored Blood Pressure 107/75 85/66 L Blood Pressure Mean 85 72 Pulse Ox 97 96 Oxygen Delivery Method Room Air Room Air 04/16/25 18:51 04/16/25 18:54 04/16/25 19:02 Temperature Temperature Source Pulse Rate 60 65 57 L Respiratory Rate 16 14 18 Respiratory Effort Blood Pressure 89/64 L 84/72 L 93/67 Blood Pressure Mean 72 76 75 Pulse Ox 98 95 96 Oxygen Delivery Method Room Air Room Air Room Air 04/16/25 19:17 Temperature Temperature Source Pulse Rate 65 Respiratory Rate 14 Respiratory Effort Blood Pressure 90/63 Blood Pressure Mean 72 Pulse Ox 96 Oxygen Delivery Method Room Air Weight Weight: 177 lb Body Mass Index (BMI) 24.0 Physical Exam Narrative Physical Examination: General: Awake, alert, oriented x 3 and cooperative, seated upright in the ED bed, fatigued, remains in A-fib with rate controlled currently. Skin: Normal color, normal turgor, no icterus, no cyanosis. HEENT: AT/NC, EOMI, PERRLA, MMM, no carotid bruits or JVD noted. Lungs: Mildly diminished, greater bases, appropriate effort, no rales, ronchi or wheezing. Heart: Irregular, rate controlled; no gallop, rub audible. Abdomen: Soft, NTTP, ND, several abdominal scars from previous surgeries, mildly hyperactive BS, no appreciated HSM. Extremities: No cyanosis, no clubbing, no marked distal edema. Neurological: Patient awake, alert, oriented as noted, cognitive function intact; pupils equally reactive to light and accommodation, cranial nerves grossly normal, moving all 4 extremities, no focal deficits, strength moderately globally decreased secondary to acute presentation complaints. Psychiatric: Affect appears fatigued otherwise normal, no acute evidence of depressive or anxiety feelings. Results Lab / Micro Data 04/16/25 18:10 04/16/25 18:10 Labs: Laboratory Results - last 24 hr 04/16/25 18:10: WBC 9.5, RBC 6.04, Hgb 16.5, Hct 49.6, MCV 82.1, MCH 27.3, MCHC 33.3, RDW Std Deviation 37.1, RDW Coeff of [place] 12.5, Plt Count 253, MPV 10.1, Immature Gran % (Auto) 0.400, Neut % (Auto) 64.0, Lymph % (Auto) 25.9, [place] % (Auto) 6.0, Eos % (Auto) 3.0, Baso % (Auto) 0.7, Absolute Neuts (auto) 6.1, Absolute Lymphs (auto) 2.45, Nucleated RBC % 0, Sodium 138, Potassium 4.0, Chloride 104, Carbon Dioxide 23.1, Anion Gap 12, BUN 11, Creatinine 0.97, Estim Creat Clear Calc 94.44, Est GFR (MDRD) Non-Af 92, BUN/Creatinine Ratio 11.5, Glucose 138 H, Calcium 9.3, Magnesium 1.8, Troponin T High Sens < 6 Imaging Radiology Impression Chest X-Ray 04/16/25 18:20 IMPRESSION: Negative Chest. Reading Location: [id number] Assessment & Plan Assessment/Plan (1) Atrial fibrillation with RVR: PLAN: Plan The patient is a 55 y/o M w/ PMHx: PAF, VSD, Valvular Heart Disease, Hx recurrent SBO w/ Ulcerative colitis s/p prior colectomy who presents to the [facility] ED on 04/16/2025 with history of suspecting onset of palpitations at approximately 11:30 PM the evening prior bleeding he went into A-fib prompting him to take his home atenolol and flecainide however did not resolve prompting eventual ED evaluation noting that his last issue with rate control was approximately 6 months prior however it abated with medications alone at home. #1. Paroxsymal atrial fibrillation w/ RVR: EKG in ED w/ atrial fibrillation w/ RVR. Patient administered diltiazem 20 mg IV bolus x 1 in ED. Will admit to PCU, maintain on telemetry, obtain cardiac enzyme serial set, magnesium level per ED 1.8 normal range, echocardiogram noted recently 01/14/2025 with normal LV size, LV systolic function normal, LVEF 65%, small membranous VSD noted thus we will not repeat, will obtain TSH level. Patient Jevon scoring low this is not been chronically anticoagulated. Cardiology consulted as initiated per ED with plan to continue the recommendation of Cardizem 60 mg p.o. every 6 hours. #2. Ulcerative colitis: Patient with significant recurrent SBO history status post significant colectomy, encourage continued follow-up with GI as previously arranged. #3. VSD, valvular heart disease: Most recent ECHO noted 01/14/25 with normal LV size, LV systolic function normal, LVEF 65%, small membranous VSD noted. #4. Hyperglycemia, mild: Admission BMP with glucose 138, will repeat CMP in a.m. and if remains further elevated may need to investigate further. #5. DVT prophylaxis: Lovenox. Charges/Coding Visit Charges Inpatient E&M: 70875 Init Hosp L2
--- OUTSIDE RECORDS SUMMARY | 2025-04-16 20:31 | XMS RPT_ITS | CCD ---
Author Organization [facility] Care Team Providers Care Combination Machine Tool Setter Name Role Phone Aixa Alexandre MD Primary Care Provider Bettie BRADFORD, Dr. Walter Primary Care Provider Dr. Hitesh Parson DO Attending Provider Dr. Hitesh Parson DO Emergency Provider [phone] Bettie BRADFORD, Dr. Walter Referring Provider Roger BRADFORD, Dr. Arias Attending Provider Roger BRADFORD, Dr. Arias Referring Provider [phone] Hitesh Parson Attending Unavailable Jose Angel Alexandre Primary Care Unavailable Jose Angel Alexandre Primary Care Unavailable Hugo Duran Attending Unavailable Hugo Duran Attending Unavailable Hugo Duran Referring Unavailable Jose Angel Alexandre Primary Care Unavailable Hugo Duran Attending Unavailable Jose Angel Alexandre Primary Care Unavailable Jose Angel Alexandre Referring Unavailable Aixa Alexandre MD Primary Care Provider Podlogar DOOR REPAIRMAN.Carmella RAMIREZ Unavailable Maximus DOOR REPAIRMAN.Marla RAMIREZ Unavailable AXIA ALEXANDRE Attending Unavailab AIXA Bañuelos Primary Care Unavailab AIXA Bañuelos Referring Unavailab AIXA Bañuelos Primary Care Unavailab AIXA Bañuelos Attending Unavailab AIXA Bañuelos Primary Care Unavailab AIXA Bañuelos Attending Unavailab AIXA Bañuelos Primary Care Unavailab AIXA Bañuelos Attending UnavailAIXA Goss Primary Care Unavailab AIXA Bañuelos Referring UnavailAIXA Goss Primary Care Unavailab le Allergies Allergy Classification Reported Allergen(s) Allergy Type Date of Onset Reaction(s) Facility (12 sources) metroNIDAZOLE; Translations: [METRONIDAZOLE HCL] Drug Allergy 7 GI Upset [facility] Work Phone: (2 sources) Penicillins; Translations: [PENICILLINS] Propensity to adverse reactions 7 [facility] Work Phone: (12 sources) Propoxyphene N-Acetaminophen; Translations: [PROPOXYPHENE N-ACETAMINOPHEN] Propensity to adverse reactions 7 [facility] Work Phone: (9 sources) Penicillins Propensity to adverse reactions 7 [facility] Work Phone: (6 sources) tamsulosin; Translations: [TAMSULOSIN] Drug Allergy 4 Other: See [facility] (1 source) metroNIDAZOLE Drug Allergy 5 [facility] (1 source) Penicillins Allergy to substance 5 [facility] (2 sources) Propoxyphene; Translations: [propoxyphene napsylate] Drug Allergy 5 [facility] (1 source) metroNIDAZOLE Drug Allergy 5 [facility] (1 source) Penicillins Drug allergy (disorder) 5 [facility] (1 source) Penicillins Propensity to adverse reactions 7 [facility] Medications Current Medications Medication Drug Class(es) Dates Sig (Normalized) Sig (Original) atenolol 25 mg oral tablet (5 sources) beta-Adrenergic Madeline Start: 11-18-2019 End: 09-07-2024 Atenolol 25 mg tablet Active 12.5 mg PO .PRN as needed for Elevated Heart Rate September 07, 2024 11:40am Start: 10-03-2015 End: 11-18-2019 take 1 tablet by mouth at bedtime Atenolol 25 MG tablet Discontinued 25 mg PO AT BEDTIME October 03, 2015 1:00am November 18, 2019 4:58pm flecainide acetate 100 mg oral tablet (6 sources) Antiarrhythmic Start: 06-15-2021 End: 09-07-2024 Flecainide 100 mg tablet Active 100 mg PO .PRN as needed for A-fib September 07, 2024 11:41am Start: 06-15-2021 End: 06-15-2021 take 1 tablet by mouth every twelve hours as needed Flecainide 150 mg tablet Discontinued 150 mg PO Q12H as needed June 15, 2021 12:00am June 15, 2021 3:54pm Start: 11-18-2019 End: 11-18-2019 take 1 tablet by mouth every twelve hours Flecainide 50 mg tablet Discontinued 50 mg PO Q12H November 18, 2019 1:00am November 18, 2019 5:18pm Start: 10-03-2015 End: 11-18-2019 Flecainide 150 MG tablet Discontinued 50 mg PO TWICE A DAY October 03, 2015 1:00am November 18, 2019 9:20am glucosamine 1000 mg oral tab let (14 sources) Start: 06-19-2022 Glucosamine Hernández lfate 2kcl (Glucosamine Relief) 1,000 mg tablet Active 2000 mg PO DAILY June 19, 2022 3:23pm administer with meals Start: 06-14-2020 End: 06-19-2022 Glucosamine Sulfate 2kcl (Glucosamine Relief) 1,000 mg tablet Discontinued 500 mg PO DAILY as needed June 14, 2020 3:31pm June 19, 2022 3:25pm administer with meals Start: 11-18-2019 End: 06-14-2020 take 1 tablet by mouth once daily at mealtime Glucosamine Sulfate 2kcl (Glucosamine Relief) 1,000 mg tablet Discontinued 1000 mg PO DAILY as needed November 18, 2019 1:00am June 14, 2020 3:31pm administer with meals take 1 tablet by shamar th once daily Glucosamine Sulfate (GLUCOSAMINE) 500 mg tab Take 1 tablet by mouth once daily. Active Comment on above: Take 1 tablet by shamar th once daily. L gasseri/B bifidum/B longum ([email or web address] ORAL) (11 sources) take 1 capsule by mouth once daily L gasseri/B bifidum/B longum ([email or web address] ORAL) Take 1 capsule by mouth once daily. Active take 1 capsule by mouth once coni ly L gasseri/B bifidum/B longum ([email or web address] ORAL) Take 1 capsule by mouth once daily. 0 Active Comment on above: Take 1 capsule by mo uth once daily. L. Gasseri-B. Bifidum-B Longum (FID3) 1.5 billion cell capsule (2 sources) Start: 11-12-2024 take 1.5 capsules by mouth once daily as needed L. Gasseri-B. Bifidum-B Longum (FID3) 1.5 billion cell capsule Active 1 NMA PO DAILY as needed November 12, 2024 9:49am Start: 06-19-2022 End: 11-12-2024 take 1.5 capsules by mouth once daily L. Gasseri-B. Bifidum-B Longum (FID3) 1.5 billion cell capsule Discontinued 1 NMA PO DAILY June 19, 2022 12:00am November 12, 2024 9:50am omeprazole 20 mg delayed release oral capsule (8 sources) Proton Pump Inhibitor Start: 02-25-2025 End: 08-24-2025 take 1 capsule by mouth once daily omeprazole (PRILOSEC) 20 mg capsule Take 1 capsule by mouth once daily. 90 capsule 1 02/25/2025 08/24/2025 Active Start: 11-12-2024 Omeprazole 40 mg capsule,delayed release(DR/EC) Active 20 mg PO DAILY November 12, 2024 1:00am Start: 08-27-2024 End: 02-25-2025 take 1 capsule by mouth once daily omeprazole (PRILOSEC) 40 mg capsule Take 1 capsule by mouth once daily. 90 capsule 1 02/25/2025 02/25/2025 Discontinued Completed/Discontinued Medications Medication Drug Class(es) Dates Sig (Normalized) Sig (Original) dicyclomine hydrochloride 10 mg oral capsule (1 source) Anticholinergic Start: 10-09-2018 End: 11-18-2019 take 2 capsules by mouth three times daily before mealtime Dicyclomine 10 MG capsule Discontinued 20 mg PO THREE TIMES DAILY BEFORE MEALS October 09, 2018 1:00am November 18, 2019 9:21am fluticasone propionate 0.05 mg/actuat metered dose nasal spray (1 source) Corticosteroid Start: 11-18-2019 End: 11-18-2019 take 50 ug nasal route twice daily Fluticasone Propionate (Flonase Allergy Relief) 50 mcg/actuation spray,suspension Discontinued 1 NMA INTRANASAL TWICE A DAY November 18, 2019 1:00am November 18, 2019 9:22am administer into each nostril Lactobacillus Combination No.4 (Probiotic) 3 billion cell capsule (1 source) Start: 11-18-2019 End: 06-19-2022 take 3 capsules by mouth once daily Lactobacillus Combination No.4 (Probiotic) 3 billion cell capsule Discontinued 3000 NMA PO DAILY November 18, 2019 1:00am June 19, 2022 3:24pm administer with a meal loperamide hydrochloride 2 mg oral capsule (1 source) Opioid Agonist Start: 06-05-2016 End: 11-18-2019 take 1 capsule by mouth every four hours as needed for diarrhea Loperamide 2 MG capsule Discontinued 2 mg PO EVERY 4 HOURS NEEDED as needed for Diarrhea June 05, 2016 12:00am November 18, 2019 9:21am Multivitamin tablet (1 source) Start: 11-18-2019 End: 06-19-2022 Multivitamin tablet Discontinued 0.5 {tbl} PO DAILY November 18, 2019 1:00am June 19, 2022 3:25pm Multivitamins-[place] ls-Lutein (MULTIVITAMIN 50 PLUS) tab (7 sources) End: 08-27-2024 Multivitamins-[place] als-Lutein (MULTIVITAMIN 50 PLUS) tab Take 1 tablet by mouth once daily. 08/27/2024 Discontinued (Course of therapy completed) Multivitamins-Mi nerals-Lutein (MULTIVITAMIN 50 PLUS) tab Take 1 tablet by mouth once daily. Active Multivitamins-Mi nerals-Lutein (MULTIVITAMIN 50 PLUS) tab Take 1 tablet by mouth once daily. 0 Active Comment on above: Take 1 tablet by shamar th once daily. ondansetron 4 mg disintegrating oral tablet (1 source) Serotonin-3 Receptor Antagonist Start: 10-09-20 End: 11-18-19 take 1 tablet by mouth every eight hours as needed for nausea Ondansetron 4 MG tablet Discontinued 4 mg PO EVERY 8 HOURS NEEDED as needed for Nausea October 09, 2018 1:00am November 18, 2019 9:21am tamsulosin hydrochloride 0.4 mg oral capsule (5 sources) alpha-Adrenergic Madeline Start: 03-22-20 End: 09-17-20 take 1 capsule by mouth at bedtime Tamsulosin 0.4 mg capsule Discontinued 0.4 mg PO AT BEDTIME June 19, 2022 12:00am September 17, 2023 9:25am Comment on above: Take 1 capsule by mo uth daily at bedtime. Problems Active Problems Problem Classification Problem Date Documented Da te Episodic/Chronic Cardiac and circulatory congenital anomalies (12 sources) Ventricular septal defect; Translations: [Ventricular septal defect] Onset: 0 04-18-2010 Chronic Cardiac dysrhythmias (20 sources) Atrial fibrillation; Translations: [Unspecified atrial fibrillation] Onset: 7 11-21-2006 Chronic Esophageal disorders (3 sources) Gastroesophageal reflux disease; Translations: [Gastro-esophageal reflux disease without esophagitis] Onset: 5 08-27-2024 Chronic Fluid and electrolyte disorders (1 source) Dehydration; Translations: [Dehydration] 11-18-2019 Episodic Heart valve disorders (4 sources) Mitral valve prolapse; Translations: [Nonrheumatic mitral (valve) prolapse] Onset: 5 11-18-2019 Chronic Hyperplasia of prostate (13 sources) Large prostate ; Translations: [Benign prostatic hyperplasia without lower urinary tract symptoms] Onset: 9 02-26-2019 Chronic Immunizations and screening for infectious disease (2 sources) Patient encounter status; Translations: [Encounter for immunization] 08-27-2024 Episodic Intestinal infection (1 source) Viral gastroenteritis; Translations: [Viral intestinal infection, unspecified] 11-18-2019 Episodic Other gastrointestinal disorders (1 source) Colostomy status; 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)] Onset: 9 Chronic Other gastrointestinal disorders (1 source) Esophageal dysphagia; Translations: [Other dysphagia] 08-27-2024 Episodic Other gastrointestinal disorders (1 source) H/O: ulcerative colitis; Translations: [Personal history of other diseases of the digestive system] 08-27-2024 Episodic Other gastrointestinal disorders (1 source) Altered bowel function; Translations: [Other specified symptoms and signs involving the digestive system and abdomen] 09-23-2024 Episodic Other lower respiratory disease (2 sources) Rib pain; Translations: [Pleurodynia] 05-19-2024 Episodic Other male genital disorders (1 source) Drug-induced erectile dysfunction; Translations: [Impotence of organic origin] Chronic Other male genital disorders (1 source) Testicular mass; Translations: [Other specified disorders of the male genital organs] Episodic Other nutritional; endocrine; and metabolic disorders (1 source) Decrease in appetite; Translations: [Anorexia] 09-23-2024 Episodic Residual codes; unclassified (1 source) History of total colectomy; Translations: [Acquired absence of other specified parts of digestive tract] 11-18-2019 Episodic Past or Other Problems Problem Classification Problem Date Documented Da te Episodic/Chronic Abdominal hernia (10 sources) Right inguinal hernia ; Translations: [Unilateral inguinal hernia, without obstruction or gangrene, not specified as recurrent] Onset: 3 Episodic Abdominal pain (5 sources) Epigastric pain; Translations: [Epigastric pain] Onset: 4 09-23-2024 Episodic Anal and rectal conditions (11 sources) Stricture of anus; Translations: [Stenosis of anus and rectum] Onset: 8 10-16-2018 Episodic Complications of surgical procedures or medical care (11 sources) Ileal pouchitis; Translations: [Pouchitis] Onset: 4 07-20-2014 Episodic Gastrointestinal hemorrhage (2 sources) Gastrointestinal hemorrhage; Translations: [Hemorrhage of anus and rectum] Onset: 4 09-23-2024 Episodic Genitourinary symptoms and ill-defined conditions (2 sources) Dysuria; Translations: [Dysuria] Onset: 4 08-27-2024 Episodic Nausea and vomiting (3 sources) Nausea; Translations: [Nausea] Onset: 4 09-23-2024 Episodic Other gastrointestinal disorders (1 source) Other specified symptoms and signs involving the digestive system and abdomen; Translations: [Change in bowel movement] Onset: 4 Episodic Other lower respiratory disease (1 source) Pleurodynia; Translations: [Rib pain on right side] Onset: 4 Episodic Other nutritional; endocrine; and metabolic disorders (1 source) Anorexia; Translations: [Decreased appetite] Onset: 4 Episodic Other screening for suspected conditions (not mental disorders or infectious disease) (1 source) Encounter for screening for malignant neoplasm of prostate; Translations: [Screening for prostate cancer] Onset: 4 Episodic Results Test Name Value Interpretation Reference Range Facility [facility] 02-25-2025 CNOV Office Visit (FAMPWS ) -- ROBIN JURADO ([id number]) 1970 M Date Time Provider Department 02/25/25 2:20 PM [facility] During your visit today, we recorded the following information about you: Pulse Respiration Blood pressure Weight 75/minute 16/minute 110/74 81.6 kg Aixa Alexandre MD 02/26/2025 7:59 AM Signed Chief Complaint Patient presents with: Follow Up: 6 month routine HPI Robin Jurado is a 55 year old male who presents here today for Above Complaints. Patient states that he has not had any recurrence of upper abdominal pain or hematochezia. Had been getting some cramping and bloating with eating bread from the grocery store, so switched to a gluten free diet which has helped with symptoms. Also notes that he stopped omeprazole around [place] and is still getting heartburn. Feels like he has more energy. Tried a home remedy for heartburn with probiotics which caused diarrhea. Has been taking antacids at bedtime and then 2-3 times per week. Would like to restart the Omeprazole and will call if fatigue returns. Denies dysphagia, odynophagia. Paroxysmal a fib managed by [facility] cardiology with yearly appointments. States last appointment was about 6 months ago. Advised to take atenolol and flecainide PRN which he has not needed. Not on ASA at this time. Overdue for follow up with colorectal surgery for history of ulcerative colitis s/p total colectomy with J pouch. Last OV 12/2021 with 2 year follow up recommended for pouchoscopy. Doing well without concerns otherwise. Past medical history, appointments, medications, allergies reviewed. Previous Medical History PAST MEDICAL HISTORY Diagnosis Date Atrial fibrillation (HCC) 11/20/[address] Duran Dysphagia Enlarged prostate GERD (gastroesophageal reflux disease) Na's pouch of intestine (HCC) J nancy, Dr. Kang Inguinal hernia, right Mitral insufficiency Other premature beats Ulcerative colitis, unspecified 11/20/2006 s/p total colectomy VSD (ventricular septal defect) closed Previous Surgical History PAST SURGICAL HISTORY Procedure Laterality Date COLECTOMY TOT ABDL W/PROCTECTOMY W/CONTNT ILEOST 1988 removal of entire colon for UC PAST SURGICAL HISTORY OF 1989 Multiple adhesiolysis, Pouch surgery PAST SURGICAL HISTORY OF 1991 Ostomy takedown PAST SURGICAL HISTORY OF 2001 Right wrist ORIF PAST SURGICAL HISTORY OF 1982 nasal fracture repair Family History FAMILY HISTORY Problem Relation Age of Onset Hypertension Father Heart Maternal Grandfather Stroke Paternal Grandfather Stroke Paternal Grandmother Heart Mother abnormal rhythm No Known Problems Sister No Known Problems Brother Emphysema Maternal Grandmother No Known Problems Daughter No Known Problems Daughter No Known Problems Daughter Patient Allergies ALLERGIES Allergen Reactions Darvocet A500 [Prop* Hives Flagyl [Metronidazo* GI Upset Flomax [Tamsulosin] Other: See Comments Erectile dysfunction Penicillins Hives Current Medications Current Outpatient Medications on File Prior to Visit Medication Sig omeprazole (PRILOSEC) 40 mg capsule Take 1 capsule by mouth once daily. Glucosamine Sulfate (GLUCOSAMINE) 500 mg tab Take 1 tablet by mouth once daily. L gasseri/B bifidum/B longum ([email or web address] ORAL) Take 1 capsule by mouth once daily. No current facility-administered medications on file prior to visit. Social History Social History Tobacco Use Smoking status: Never Smokeless tobacco: Never Substance Use Topics Alcohol use: Yes Comment: rare Drug use: No Review of Symptoms REVIEW OF SYSTEMS GENERAL: No weight loss, malaise or fevers RESPIRATORY: Negative for cough, hemoptysis, wheezing, COPD, dyspnea or shortness of breath CARDIOVASCULAR: Negative for chest pain, leg swelling, hypertension, CHF or palpitations GI: No nausea, vomiting, or diarrhea SKIN: Negative for lesions, rash, and itching EXAM: BP 110/74 Pulse 75 Resp 16 Wt 81.6 kg (180 lb) SpO2 99% BMI 23.86 kg/m? General Appearance: Well appearing, alert, in no acute distress, well-hydrated, well nourished.. Skin: Skin color, texture, turgor normal, no suspicious rashes or lesions. Lungs: Lungs clear to auscultation. No wheezing, rhonchi, rales.. Heart: RRR without murmur, gallop, or rubs. No ectopy. Abdomen: Normal abdominal exam, Abdomen soft, non-tender. Bowel sounds normal. No masses, organomegaly. Extremities: No deformities, edema, skin discoloration, clubbing or cyanosis. Good capillary refill. . Health Maintenance List Depression Screening Never done Anxiety Screening Never done Colorectal Cancer Screening Never done Pneumococcal Vaccine: 50+(1 of 1 - PCV) Never done Shingrix Vaccine(1 of 2) due on 08/27/2025 DTaP,Tdap,Td Vaccine(2 - Td or Tdap) (more content not included)... Normal [facility] Echo Completeon 01-14-2025 Echo Complete [facility] [address] [address] Echo Complete 01/14/25 1016 MR#: [id number] Acct: [id number] Name: ROBIN JURADO Rep #: [id number] : 1970 54 From: Hugo Duran MD Attending Dr: Dr. Hugo Duran MD Status: MARTINEZ TRACEY Ordering Dr: Hugo Duran MD Date: 01/14/25 Location: [facility] Sex: M C Admitted: Reason For Study Reason For Study: ATRIAL FIB/FLUTTER Procedure This was a 2D Doppler, Color Flow transthoracic echocardiogram. Exam performed in department. Left Ventricle Normal LV size. Mild concentric left ventricular hypertrophy. Small membranous VSD noted. Left ventricular systolic function is normal. The left ventricular ejection fraction is 65 %. No regional wall motion abnormalities noted. Right Ventricle Normal RV size. Normal systolic function. Atria Normal left atrium. Normal right atrium. Mitral Valve Normal mitral valve. Tricuspid Valve Normal tricuspid valve. Aortic Valve Trisinus/trileaflet aortic valve. Pulmonic Valve Normal pulmonic valve. Great Vessels Normal aortic root. The pulmonary artery is normal size. Inferior vena cava collapse with respiration. Pericardium/Pleural No pericardial effusion. MMode/2D Measurements Calculations LVIDd: 4.2 cm IVSd: 1.2 cm LAV(MOD-bp): 53.9 ml LVIDs: 3.1 cm LVPWd: 1.2 cm LAV(MOD-bp) Indexed: 26.5 ml/m2 RVDd: 4.0 cm FS: 25.2 % LAV(MOD-sp2): 50.8 ml LAV(MOD-sp4): 43.7 ml SV(MOD-sp4): 46.7 ml LVAd ap4: 25.1 cm2 LVAd ap2: 27.2 cm2 LVLd ap4: 7.6 cm LVLd ap2: 8.0 cm SI(MOD-sp4): 23.0 ml/m2 EDV(MOD-sp4): 70.4 ml EDV(MOD-sp2): 76.1 ml EDV(sp4-el): 71.0 ml EDV(sp2-el): 78.1 ml LVAs ap4: 12.3 cm2 LVAs ap2: 14.6 cm2 LVLs ap4: 5.6 cm LVLs ap2: 6.7 cm ESV(MOD-sp4): 23.6 ml ESV(MOD-sp2): 27.1 ml ESV(sp4-el): 23.0 ml ESV(sp2-el): 26.7 ml EF(MOD-sp4): 66.4 % EF(MOD-sp2): 64.4 % EF(sp4-el): 67.7 % SV(MOD-sp2): 49.1 ml SV(sp4-el): 48.0 ml LA A4 area: 14.8 cm2 SI(MOD-sp2): 24.1 ml/m2 LA dimension(2D): 2.9 cm TAPSE: 2.2 cm RA A4 area: 12.7 cm2 Time Measurements MV dec time: 0.22 sec Doppler Measurements Calculations MV E max librado: 64.5 cm/sec Lat Peak E' Librado: 7.3 cm/sec Med Peak E' Librado: 9.1 cm/sec MV A max librado: 43.0 cm/sec E/E' lat: 8.8 E/E' med: 7.1 MV E/A: 1.5 MV V2 max: 64.7 cm/sec MV P1/2t max librado: 68.5 cm/sec Ao V2 max: 85.4 cm/sec MV max P.7 mmHg MV P1/2t: 51.0 msec Ao max P.9 mmHg MV V2 mean: 37.9 cm/sec MV dec slope: 393.0 cm/sec2 Ao V2 mean: 62.8 cm/sec MV mean P.65 mmHg Ao mean P.7 mmHg MV V2 VTI: 17.1 cm MVA(P1/2t): 4.3 cm2 Ao V2 VTI: 16.9 cm AV (velocity ratio): 0.90 LV V1 max: 80.9 cm/sec PA V2 max: 143.3 cm/sec LV V1 max P.6 mmHg PA V2 mean: 100.4 cm/sec LV V1 mean P.4 mmHg LV V1 mean: 55.2 cm/sec LV V1 VTI: 15.2 cm ECHO/Echo Complete Interpretation Summary Normal LV size. Left ventricular systolic function is normal. The left ventricular ejection fraction is 65 %. Small membranous VSD noted. Ordering Physician: Hugo Duran Referring Physician: Aixa Alexandre Performed By: Marii Martinez, WALDO, RVT 01/14/25 1150 Date Hugo Duran MD CC: Dr. Jose Angel Alexandre MD; Dr. Hugo Duran MD Date Dictated: 01/14/25 1016 Date Transcribed: 01/14/25 115 Shaper Setter: Signed Normal [facility] Echocardiogram study reportO rdered By: Hugo Duran on 01-14-2025 Study report [facility] [address] [place] [address] Echo Complete 01/14/25 1016 MR#: [id number] Acct: [id number] Name: ROBIN JURADO Rep #:[id number] : 1970 54 From: Hugo Ferrer Attending Dr: MD Graham Maurer tatus: MARTINEZ CLI Ordering Dr: Hugo Duran MD Date: Location: [facility] Sex: M C Admitted: Reason For Study Reason For Study: ATRIAL FIB/FLUTTER Procedure This was a 2D Doppler, Color Flow transthoracic echocardiogram. Exam performed in department. Left Ventricle Normal LV size. Mild concentric left ventricular hypertrophy. Small membranous VSD noted. Left ventricular systolic function is normal. The left ventricular ejection fraction is 65 %. No regional wall motion abnormalities noted. Right Ventricle Normal RV size. Normal systolic function. Atria Normal left atrium. Normal right atrium. Mitral Valve Normal mitral valve. Tricuspid Valve Normal tricuspid valve. Aortic Valve Trisinus/trileaflet aortic valve. Pulmonic Valve Normal pulmonic valve. Great Vessels Normal aortic root. The pulmonary artery is normal size. Inferior vena cava collapse with respiration. Pericardium/Pleural No pericardial effusion. MMode/2D Measurements & Calculations LVIDd: 4.2 cm IVSd: 1.2 cm LAV(MOD-bp): 53.9 ml LVIDs: 3.1 cm LVPWd: 1.2 cm LAV(MOD-bp) Indexed: 26.5 ml/m2 RVDd: 4.0 cm FS: 25.2 % LAV(MOD-sp2): 50.8 ml LAV(MOD-sp4): 43.7 ml SV(MOD-sp4): 46.7 ml LVAd ap4: 25.1 cm2 LVAd ap2: 27.2 cm2 LVLd ap4: 7.6 cm LVLd ap2: 8.0 cm SI(MOD-sp4): 23.0 ml/m2 EDV(MOD-sp4): 70.4 ml EDV(MOD-sp2): 76.1 ml EDV(sp4-el): 71.0 ml EDV(sp2-el): 78.1 ml LVAs ap4: 12.3 cm2 LVAs ap2: 14.6 cm2 LVLs ap4: 5.6 cm LVLs ap2: 6.7 cm ESV(MOD-sp4): 23.6 ml ESV(MOD-sp2): 27.1 ml ESV(sp4-el): 23.0 ml ESV(sp2-el): 26.7 ml EF(MOD-sp4): 66.4 % EF(MOD-sp2): 64.4 % EF(sp4-el): 67.7 % SV(MOD-sp2): 49.1 ml SV(sp4-el): 48.0 ml LA A4 area: 14.8 cm2 SI(MOD-sp2): 24.1 ml/m2 ____ LA dimension(2D): 2.9 cm TAPSE: 2.2 cm RA A4 area: 12.7 cm2 Time Measurements MV dec time: 0.22 sec Doppler Measurements & Calculations MV E max librado: 64.5 cm/sec Lat Peak E' Librado: 7.3 cm/sec Med Peak E' Librado: 9.1 cm/sec MV A max librado: 43.0 cm/sec E/E' lat: 8.8 E/E' med: 7.1 MV E/A: 1.5 MV V2 max: 64.7 cm/sec MV P1/2t max librado: 68.5 cm/sec Ao V2 max: 85.4 cm/sec MV max P.7 mmHg MV P1/2t: 51.0 msec Ao max P.9 mmHg MV V2 mean: 37.9 cm/sec MV dec slope: 393.0 cm/sec2 Ao V2 mean: 62.8 cm/sec MV mean P.65 mmHg Ao mean P.7 mmHg MV V2 VTI: 17.1 cm MVA(P1/2t): 4.3 cm2 Ao V2 VTI: 16.9 cm AV (velocity ratio): 0.90 __ LV V1 max: 80.9 cm/sec PA V2 max: 143.3 cm/sec LV V1 max P.6 mmHg PA V2 mean: 100.4 cm/sec LV V1 mean P.4 mmHg LV V1 mean: 55.2 cm/sec LV V1 VTI: 15.2 cm ECHO/Echo Complete Interpretation Summary Normal LV size. Left ventricular systolic function is normal. The left ventricular ejection fraction is 65 %. Small membranous VSD noted. Ordering Physician: Hugo Duran Referring Physician: Aixa Alexandre Performed By: Marii Martinez, WALDO, RVT 01/14/25 1150 Date _ Hugo Duran MD CC: Dr. Jose Angel Alexandre MD; Dr. Hugo Duran MD ~ Date Dictated: 01/14/25 1016 Date Transcribed: 01/14/25 1150 Shaper Setter: Signed [facility] Work Phone: 12 Lead EKG performed by [facility] on 11-12-2024 12 Lead EKG performed by [facility] [address] [place] [address] 12 Lead EKG performed by [facility] 11/12/24 0843 MR#: [id number] Acct: [id number] Name: ROBIN JURADO Rep #: [id number] : 1970 54 From: Hugo Duran MD Attending Dr: Dr. Hugo Duran MD Status: DEP A MB Ordering Dr: Hugo Duran MD Date: 11/12/24 Location: [facility] Sex: M C Admitted: [facility]/12 Lead EKG performed by [facility] ECG Report Interpretation Sinus Rhythm -With rate variation cv = 10.-Left axis -anterior fascicular block. -consider old anterior infarct. ABNORMAL Electronically signed on 11/17/2024 at 10:02 by Hugo Duranwood Software Version 8610 11/17/24 1005 Date Hugo Duran MD CC: Dr. Jose Angel Alexandre MD Date Dictated: 11/12/24842 Date Transcribed: 11/12/24842 Shaper Setter: CO Signed Normal [facility] Cardiology Visit Reporton Cardiology Visit Report [facility] [address] [place] [address] OFFICE VISIT Date of Service: 11/12/24 MR#: [id number] Acct: [id number] Name: ROBIN JURADO Rep #: [id number] : 1970 Provider: Dr. Hugo Duran MD Age/Sex: 54/M Location: [facility] Status: Signed HPI HPI History of Present Illness Details: 54-year-old gentleman with a previous history of paroxysmal atrial fibrillation, premature ventricular complexes, and small ventricular septal defect which apparently has resolved. It was a membranous type. He had been on a beta-madeline for years as well as flecainide and at his last visit he wanted to know whether he needed to continue with this. We discontinued it and he apparently has done well. He has had only one time use as a pill in the pocket approach. He did have an echocardiogram in February 2019 which demonstrated preserved ejection fraction of 66% mild mitral valve prolapse and mild regurgitation. He had a stress test in 2019 where he exercised to a high metabolic workload with no evidence of arrhythmias at 14 metabolic equivalents. He states he has not taken a pill in pocket/as needed flecainide or atenolol since 6 months ago He denies chest, arm, jaw, or neck discomfort. He denies palpitations. He denies bilateral lower extremity edema. He denies claudication. He denies shortness of breath with activity, shortness of breath at rest, orthopnea, or PND. He denies chronic cough. He denies significant, sudden weight gain. He denies lightheadedness, dizziness, near-syncope, or syncope. He denies blood in urine, blood in stool, or epistaxis. He denies fever with chills. He denies myalgia. He denies fatigue. His exercise level has remained stable. Intake Vital Signs 09/17/23 08:25 09/23/24 13:51 11/12/24 08:43 Height 6 ft 6 ft 6 ft Weight: 179 lb BMI 24.3 BP 117/83 H Blood Pressure Location Lt brachial Position Sitting Respiration 16 Pulse 70 Pulse Source Monitor Intake Visit Reasons: 1 Y FU Digital Advisor Required: No Accompanied by: Self Is patient in pain?: No Allergies Penicillins Allergy (Verified 11/12/24 08:49) Hives propoxyphene napsylate (From Darvocet-N) Allergy (Verified 11/12/24 08:49) Hives metronidazole (From Flagyl) Adverse Reaction (Verified 11/12/24 08:49) Vomiting Medications ???Medication ???Instructions ???Recorded ???Confirmed ???Type glucosamine sulfate 2KCl 1,000 mg 2,000 mg PO DAILY 06/19/22 11/12/24 History tablet (Glucosamine Relief) atenolol 25 mg tablet 12.5 mg (1/2 x 25 mg) PO .PRN PRN 09/07/24 11/12/24 Rx Elevated Heart Rate #30 tabs flecainide 100 mg tablet 100 mg PO .PRN PRN A-fib #14 tabs 09/07/24 11/12/24 Rx Lactobacills gasseri-Bifidobac 1 cap PO DAILY PRN 11/12/24 11/12/24 History bifidum,longum 1.5 billion cell capsule (FID3) omeprazole 40 mg capsule,delayed 20 mg PO DAILY 11/12/24 11/12/24 History release Have you fallen in the past year?: No PFSH Medical History Nonrheumatic mitral (valve) prolapse Premature ventricular contractions BPH (benign prostatic hyperplasia) VSD (ventricular septal defect) Paroxysmal atrial fibrillation Recurrent intestinal obstruction History of ulcerative colitis Surgical History History of open reduction and internal fixation (ORIF) procedure Na's pouch of intestine History of colectomy Family History Father Hypertension Grandfather Heart disease CVA (cerebral vascular accident) Grandmother CVA (cerebral vascular accident) Social History Smoking Status: Never smoker alcohol intake: never substance use type: does not use caffeine: No ROS Const Const: Negative for fatigue, weakness, headache(s), daytime sleepiness or difficulty sleeping ENT ENT: Negative for headache(s), dizziness or Nosebleed/epistaxis Cardio Chest Pain: No Palpitations: Yes (had one episode AFIB and took PRN meds with relief) Edema: None Resp Respiratory: Negative for SOB with activity, SOB at rest, SOB orthopnea SOB lying down or Cough GI GI: Positive for heartburn (taking omeprazole); Negative nausea or vomiting Neuro Neuro: Negative for dizziness, lightheadedness, near syncope, headache(s) or weakness Endo Endo: Negative for fatigue Cardiology Exam Const Appearance: cooperative, healthy appearing, comfortable and no acute distress Nutritional Appearance: average body habitus and well nourished Orientation: alert, awake and oriented x3 Head Head: normal to inspection Ears: hearing grossly normal bilaterally Nose: external nose normal Face an (more content not included)... Normal [facility] Abdomen/Pelvis WITH Contrast on 09-23-2024 Abdomen/Pelvis WITH Contrast [facility] [address] [place] [address] [id number] Abdomen/Pelvis WITH Contrast MR#: [id number] Acct: [id number] Name: ROBIN JURADO Rep #: [id number] : 1970 M 54 From: Jesse lu MD PCP: Dr. Jose Angel Alexandre MD Status: REG ER Study: Abdomen/Pelvis WITH Contrast Date of Exam: 02/11 Exam# [id number] Ordering Dr: Hitesh Parson DO [id number] STUDY: CT ABDOMEN AND PELVIS WITH CONTRAST REASON FOR EXAM: Male, 54 years old. abdominal pain RADIATION DOSAGE (If Supplied By Facility): CTDIvol = ( 10.42 ) mGy, DLP = ( 569.75 ) mGycm TECHNIQUE: Transaxial images were obtained from the dome of the diaphragm to the symphysis pubis with oral contrast. Oral and amp; IV Gastrografin and amp; 100mL Isovue-300 was administered. Sagittal and coronal images were reconstructed. Individualized dose optimization techniques were used for this CT. COMPARISON: 10/09/2018. FINDINGS: The visualized lung bases are unremarkable. The visualized portions of the heart are within normal limits. Normal liver. Normal gallbladder and extrahepatic biliary system. Normal spleen. Normal pancreas. Normal bilateral adrenal glands. Normal right kidney. Normal left kidney. Cannot exclude stomach wall thickening. No dilated loops of bowel or evidence for obstruction. There has been subtotal colectomy. Normal appearance of the small bowel. No evidence of bowel wall thickening. Absent appendix. Normal abdominal aorta. Normal inferior vena cava. Normal retroperitoneum. Normal urinary bladder. There is enlargement of the prostate gland. Surgical deformity of the right lower abdominal wall, stable and consistent with previous ostomy. No incisional hernia. There is a right-sided inguinal hernia containing adipose tissue. Normal osseous structures. CT/Abdomen/Pelvis WITH Contrast IMPRESSION: Patient is status post subtotal colectomy. Only the rectum remains. The small bowel is normal in caliber and appearance. No other definite acute or significant abnormality seen. Electronically Signed: Jesse Gonzalez MD at 17:55 EST , CC: Dr. Jose Angel Alexandre MD; Dr. Hitesh Parson DO Shaper Setter: Signed Normal [facility] Absolute neutrophil countOrd ered By: ED PROVIDER on 09-23-2024 Neutrophils (Bld) [#/Vol] 3.5 10*3/uL 2.0-7.7 [facility] Albumin to globulin ratioOrd ered By: ED PROVIDER on 09-23-2024 Albumin/Globulin [Mass ratio] 1.0 {ratio} 0.9-2.4 [facility] Basophil percentageOrdered B y: ED PROVIDER on 09-23-2024 Basophils/100 WBC (Bld) 0.4 % 0-1 [facility] Bilirubin Test strip Ql (U)O rdered By: Hitesh Marinaadi on 09-23-2024 Bilirubin Ql (U) Negative Negative [facility] Bilirubin, totalOrdered By: ED PROVIDER on 09-23-2024 Bilirubin [Mass/Vol] 0.30 mg/dL 0.20-1.00 [facility] Comment on above: For patients on eltr ombopag therapy, use of Dimension [place] TBIL is not recommended. Blood urea nitrogen (BUN)/cr eatinine ratioOrdered By: ED PROVIDER on 09-23-2024 Urea nitrogen/Creatinine [Mass ratio] 12.7 mg/mg 10-20 [facility] CBC W/Diff, Automatedon 12-0 Absolute Lymph 1.56 X10 3/uL Normal 0.83-4.51 [facility] Comment on above: Performed By: #### L 500.4050, L100.0100 #### [facility] [address] [place], [address] Absolute Neut 3.5 X10 3/uL Normal 2.0-7.7 [facility] Comment on above: Performed By: #### L 500.4050, L100.0100 #### [facility] [address] [place], [address] Basophils/100 WBC (Bld) 0.4 % Normal 0-1 [facility] Comment on above: Performed By: #### L 500.4050, L100.0100 #### [facility] [address] [place], [address] Eosinophils/100 WBC (Bld) 2.3 % Normal 0-5 [facility] Comment on above: Performed By: #### L 500.4050, L100.0100 #### [facility] [address] [place], [address] Erythrocyte distribution width (RBC) [Ratio] 12.4 % Normal 11.6-14.6 [facility] Comment on above: Performed By: #### L 500.4050, L100.0100 #### [facility] [address] [place], [address] Hematocrit (Bld) [Volume fraction] 47.8 % Normal 40-54 [facility] Comment on above: Performed By: #### L 500.4050, L100.0100 #### [facility] [address] [place], [address] Hemoglobin (Bld) [Mass/Vol] 15.4 g/dL Normal 13.0-16.5 [facility] Comment on above: Performed By: #### L 500.4050, L100.0100 #### [facility] [address] [place], [address] IG% 0.500 Normal 0.0-0.9 [facility] Comment on above: Result Comment: IG% - Immature Granulocytes (promyelocytes, myelocytes and metamyelocytes) > 1% indicates that a LEFT SHIFT is Present. Performed By: #### L 500.4050, L100.0100 #### [facility] [address] [place], [address] Lymphocytes/100 WBC (Bld) 27.9 % Normal 19-41 [facility] Comment on above: Performed By: #### L 500.4050, L100.0100 #### [facility] [address] [place], [address] MCH (RBC) [Entitic mass] 26.9 pg Low 27.0-32.0 [facility] Comment on above: Performed By: #### L 500.4050, L100.0100 #### [facility] [address] [place], [address] MCHC (RBC) [Mass/Vol] 32.2 g/dL Normal 32-36 [facility] Comment on above: Performed By: #### L 500.4050, L100.0100 #### [facility] [address] [place], [address] MCV (RBC) [Entitic vol] 83.4 fL Normal 80-94 [facility] Comment on above: Performed By: #### L 500.4050, L100.0100 #### [facility] [address] [place], [address] Monocytes/100 WBC (Bld) 6.4 % Normal 0-10 [facility] Comment on above: Performed By: #### L 500.4050, L100.0100 #### [facility] [address] [place], [address] Neutrophils/100 WBC (Bld) 62.5 % Normal 47-70 [facility] Comment on above: Performed By: #### L 500.4050, L100.0100 #### [facility] [address] [place], [address] Nucleated RBC (Bld) [#/Vol] 0 10*3/uL Normal 0-5 [facility] Comment on above: Performed By: #### L 500.4050, L100.0100 #### [facility] [address] [place], [address] Platelet mean volume (Bld) [Entitic vol] 10.1 fL Normal 6.2-12.0 [facility] Comment on above: Performed By: #### L 500.4050, L100.0100 #### [facility] [address] [place], [address] Platelets (Bld) [#/Vol] 227 10*3/uL Normal 150-450 [facility] Comment on above: Performed By: #### L 500.4050, L100.0100 #### [facility] [address] [place], [address] RBC (Bld) [#/Vol] 5.73 10*6/uL Normal 4.6-6.2 [facility] Comment on above: Performed By: #### L 500.4050, L100.0100 #### [facility] [address] [place], [address] RDW SD 37.5 fl Normal 35.1-43.9 [facility] Comment on above: Performed By: #### L 500.4050, L100.0100 #### [facility] [address] [place], [address] WBC (Bld) [#/Vol] 5.6 10*3/uL Normal 4.4-11.0 [facility] Comment on above: Performed By: #### L 500.4050, L100.0100 #### [facility] [address] [place], [address] CNOVon 09-23-2024 CNOV Office Visit (FAMPWS ) -- DARRELLSHERONROBIN Shruthi ([id number]) 1970 M Date Time Provider Department 09/23/24 1:20 PM AIXA ALEXANDRE FAMPWS During your visit today, we recorded the following information about you: Temperature Pulse Respiration Blood pressure 98 degrees 75/minute 16/minute 130/70 Aixa Alexandre MD 09/23/2024 1:38 PM Signed Chief Complaint Patient presents with: Abdominal Pain: Started Thanksgiving- shooting pains that come and go Fatigue: With chills not fevered though HPI Robin Shruthi Rhiannon is a 54 year old male with PMH: ulcerative colitis s/p total colectomy with J pouch who presents here today for Above Complaints.. Patient complaining of abdominal pain which started on Thanksgiving after eating grilled cheese with Ham at lunch and is gradually worsening. States that pain is in upper abdomen described as intermittent cramping, currently 03/30 with radiation into his lower abdomen and groin. Has had loss of appetite today and was not able to eat lunch. Has some nausea without vomiting and loose stools. Noted some BRB with wiping today. Admits to chills without fever. Past medical history, appointments, medications, allergies reviewed. Previous Medical History PAST MEDICAL HISTORY Diagnosis Date Atrial fibrillation (HCC) 11/20/[address] Duran Dysphagia Enlarged prostate GERD (gastroesophageal reflux disease) Na's pouch of intestine ([facility]) J pouch, Dr. Kang Inguinal hernia, right Mitral insufficiency Other premature beats Ulcerative colitis, unspecified 11/20/2006 s/p total colectomy VSD (ventricular septal defect) closed Previous Surgical History PAST SURGICAL HISTORY Procedure Laterality Date COLECTOMY TOT ABDL W/PROCTECTOMY W/CONTNT ILEOST 1988 removal of entire colon for UC PAST SURGICAL HISTORY OF 1989 Multiple adhesiolysis, Pouch surgery PAST SURGICAL HISTORY OF 1991 Ostomy takedown PAST SURGICAL HISTORY OF 2001 Right wrist ORIF PAST SURGICAL HISTORY OF 1982 nasal fracture repair Family History FAMILY HISTORY Problem Relation Age of Onset Hypertension Father Heart Maternal Grandfather Stroke Paternal Grandfather Stroke Paternal Grandmother Heart Mother abnormal rhythm No Known Problems Sister No Known Problems Brother Emphysema Maternal Grandmother No Known Problems Daughter No Known Problems Daughter No Known Problems Daughter Patient Allergies ALLERGIES Allergen Reactions Darvocet A500 [Prop* Hives Flagyl [Metronidazo* GI Upset Flomax [Tamsulosin] Other: See Comments Erectile dysfunction Penicillins Hives Current Medications Current Outpatient Medications on File Prior to Visit Medication Sig omeprazole (PRILOSEC) 40 mg capsule Take 1 capsule by mouth once daily. Glucosamine Sulfate (GLUCOSAMINE) 500 mg tab Take 1 tablet by mouth once daily. L gasseri/B bifidum/B longum ([email or web address] ORAL) Take 1 capsule by mouth once daily. No current facility-administered medications on file prior to visit. Social History Social History Tobacco Use Smoking status: Never Smokeless tobacco: Never Substance Use Topics Alcohol use: Yes Comment: rare Drug use: No Review of Symptoms REVIEW OF SYSTEMS See HPI EXAM: BP 130/70 Pulse 75 Temp 36.7 ?C (98 ?F) Resp 16 SpO2 99% General Appearance: Ill appearing, sitting upright in chair with coat on shivering. Occasionally holding abdomen due to pain. Skin: Skin color, texture, turgor normal, no suspicious rashes or lesions. Lungs: Lungs clear to auscultation. No wheezing, rhonchi, rales.. Heart: RRR without murmur, gallop, or rubs. No ectopy. Abdomen: Abdomen soft, . No masses, organomegaly, Negative CVA tenderness, Positive findings: tenderness marked epigastric with guarding, hypoactive bowel sounds. Health Maintenance List Depression Screening Never done Anxiety Screening Never done Colorectal Cancer Screening Never done Shingrix Vaccine(1 of 2) due on 08/27/2025 DTaP,Tdap,Td Vaccine(2 - Td or Tdap) due on 06/21/2026 Diabetes Screening due on 08/27/2027 Lipid Screening due on 08/27/2029 Influenza Vaccine Completed Covid-19 Vaccine Completed Hepatitis B Vaccine Discontinued Hepatitis C Screening Discontinued HIV Screening Discontinued ASSESSMENT/PLAN: 1. Epigastric pain - ICD9: 789.06, ICD10: R10.13 (primary diagnosis) Concerned for bowel obstruction vs mass vs infection. Recommend ER evaluation for immediate evaluation. Patient refusing EMS and will drive self to [facility] ED. Report called to [facility] ER physician. Will f/u on discharge. 2. Decreased appetite - ICD9: 783.0, ICD10: R63.0 See above 3. Nausea - ICD9: 787.02, ICD10: R11.0 See above 4. Change in bowel movement - ICD9: 787.99, ICD10: R19.8 See above 5. BRBPR (bright red blood per rectum) - ICD9: 569.3, ICD10: K62.5 See abov (more content not included)... Normal [facility] Daniele 09-23-2024 CNPN Telephone (FAMPWS) -- ROBIN JURADO ([id number]) 1970 M Date Time Provider Department 09/23/24 AIXA ALEXANDRE During your visit today, we recorded the following information about you: Fredi Pichardo LPN 09/23/2024 11:40 AM Signed . Pt calls and states the following: ABDOMINAL PAIN and cramping LOCATION: lower abd in the center and upper abd- cramping RADIATION: none ONSET: 2 days that he is noticing. Thanksgiving was have this a little. SUDDEN: gradual PATTERN: none SEVERITY: pain scale 4 comes and goes RECURRENT SYMPTOMS: Pt has a colostomy and he is noticing has to work to have a BM, When it comes if is loose. Increased urination. Pt reports he is in the bathroom every 2 hours urinating CAUSE: unknown RELIEVING/AGGRAVATING FACTORS: none OTHER SYMPTOMS: per pt feels like gas pain Pt not certain what is going on. Pt scheduled for an apt today 09-23-24 with provider/team. Fredi Pichardo LPN Allergies As of Date: 09/23/2024 Noted Allergy Reaction DARVOCET A500 (PROPOXYPHENE N-BLAS*11/21/2006 4 - Hives FLAGYL (METRONIDAZOLE HCL) 11/21/2006 8 - GI Upset FLOMAX (TAMSULOSIN) 08/27/2024 14 - Other: See Comments Comments: Erectile dysfunction PENICILLINS 11/21/2006 4 - Hives Date Reviewed: 08/27/2024 Reviewed by: Aixa Alexandre MD - Fully Assessed Reason for Visit: Future Appointment [256] Prescriptions as of 09/23/2024 - omeprazole (PRILOSEC) 40 mg capsule Take 1 capsule by mouth once daily. - Glucosamine Sulfate (GLUCOSAMINE) 500 mg tab Take 1 tablet by mouth once daily. - L gasseri/B bifidum/B longum ([employer] [facility] ORAL) Take 1 capsule by mouth once daily. Problem List As Of Date 09/23/2024 Noted Resolved ATRIAL FIBRILLATION [I48.91] 11/20/2006 PREMATURE BEATS NEC [I49.49] 11/21/2006 VSD (Ventricular Septal Defect) [Q21.0] 04/18/2010 Ileal pouchitis (HCC) [K91.850] 07/20/2014 Anal stricture [K62.4] 10/16/2018 Na's pouch of intestine (HCC) [Z93.3] Enlarged prostate [N40.0] 02/26/2019 Inguinal hernia, right [K40.90] 12/21/2022 Encounter Status:Closed by FREDI PICHARDO on 09/23/24 Normal [facility] Carbon dioxide measurementOr dered By: ED PROVIDER on 09-23-2024 CO2 [Moles/Vol] 29.0 mmol/L 21.0-32.0 [facility] Chloride measurementOrdered By: ED PROVIDER on 09-23-2024 Chloride [Moles/Vol] 106 mmol/L 98-107 [facility] Comprehensive Metabolic Prof ilon 09-23-2024 Albumin [Mass/Vol] 3.8 g/dL Normal 3.2-5.0 [facility] Comment on above: Performed By: #### L 500.4050, L100.0100 #### [facility] [address] [place], [address] Albumin/Globulin [Mass ratio] 1.0 {ratio} Normal 0.9-2.4 [facility] Comment on above: Performed By: #### L 500.4050, L100.0100 #### [facility] [address] [place], [address] ALK P 90 U/L Normal 45-117 [facility] Comment on above: Performed By: #### L 500.4050, L100.0100 #### [facility] [address] [place], [address] ALT [Catalytic activity/Vol] 43 U/L Normal 16-61 [facility] Comment on above: Performed By: #### L 500.4050, L100.0100 #### [facility] [address] [place], [address] AST [Catalytic activity/Vol] 16 U/L Normal 15-37 [facility] Comment on above: Performed By: #### L 500.4050, L100.0100 #### [facility] [address] [place], [address] Bilirubin [Mass/Vol] 0.30 mg/dL Normal 0.20-1.00 [facility] Comment on above: Result Comment: For patients on eltrombopag therapy, use of Dimension [place] TBIL is not recommended. Performed By: #### L 500.4050, L100.0100 #### [facility] [address] [place], [address] BUN/CRE 12.7 RATIO Normal 10-20 [facility] Comment on above: Performed By: #### L 500.4050, L100.0100 #### [facility] [address] [place], [address] CA,Total 9.0 mg/dL Normal 8.5-10.1 [facility] Comment on above: Performed By: #### L 500.4050, L100.0100 #### [facility] [address] [place], [address] Chloride [Moles/Vol] 106 mmol/L Normal 98-107 [facility] Comment on above: Performed By: #### L 500.4050, L100.0100 #### [facility] [address] [place], [address] CO2 [Moles/Vol] 29.0 mmol/L Normal 21.0-32.0 [facility] Comment on above: Performed By: #### L 500.4050, L100.0100 #### [facility] [address] [place], [address] Creatinine [Mass/Vol] 0.87 mg/dL Normal 0.70-1.30 [facility] Comment on above: Result Comment: The validity of the calculated GFR GFRAA in patients over 70 years has not been determined. Clinical correlation is essential. Performed By: #### L 500.4050, L100.0100 #### [facility] [address] [place], [address] ECRCL 106.54 ml/min Normal [facility] Comment on above: Performed By: #### L 500.4050, L100.0100 #### [facility] [address] [place], [address] EST GFR - AA 118 mL/min Normal >60 [facility] Comment on above: Result Comment: Afri can Marshallese GFR Calc Performed By: #### L 500.4050, L100.0100 #### [facility] [address] [place], [address] GAP 4 Low 5-15 [facility] Comment on above: Performed By: #### L 500.4050, L100.0100 #### [facility] [address] [place], [address] GFR/1.73 sq M.predicted among non-blacks MDRD (S/P/Bld) [Vol rate/Area] 97 mL/min/{1.73_m2} Normal >60 [facility] Comment on above: Result Comment: Non- GFR Calc Performed By: #### L 500.4050, L100.0100 #### [facility] [address] [place], [address] Globulin (S) [Mass/Vol] 3.7 g/dL Normal 2.2-4.2 [facility] Comment on above: Performed By: #### L 500.4050, L100.0100 #### [facility] [address] [place], [address] Glucose [Mass/Vol] 97 mg/dL Normal 74-106 [facility] Comment on above: Performed By: #### L 500.4050, L100.0100 #### [facility] [address] [place], [address] Potassium [Moles/Vol] 4.3 mmol/L Normal 3.5-5.1 [facility] Comment on above: Performed By: #### L 500.4050, L100.0100 #### [facility] [address] [place], [address] Sodium [Moles/Vol] 139 mmol/L Normal 136-145 [facility] Comment on above: Performed By: #### L 500.4050, L100.0100 #### [facility] [address] [place], [address] T PROT 7.5 g/dL Normal 6.4-8.2 [facility] Comment on above: Performed By: #### L 500.4050, L100.0100 #### [facility] [address] [place], [address] Urea nitrogen [Mass/Vol] 11 mg/dL Normal 7-18 [facility] Comment on above: Performed By: #### L 500.4050, L100.0100 #### [facility] [address] [place], [address] Emergency Department Summary on 09-23-2024 Emergency Department Summary [facility] Medical Records Department [address] [place] [address] Emergency Department Summary 09/23/24 MR#: [id number] Acct: [id number] Name: ROBIN JURADO Rep #: [id number] : 1970 54 From: Hitesh Parson DO PCP: Dr. Jose Angel Alexandre MD Status:DEP ER Location: ED HPI HPI - GI History of Present Illness Chief Complaint: Abd Pain Detail of Chief Complaint: Abdominal pain Informant: patient Narrative Narrative: Patient presents with abdominal pain that he initially noticed around giving and at that time had a sharp pain in the lower abdomen that then resolved. He is progressively had lower abdomen pain since then that became worse. Since around 10 AM now the pain in the upper abdomen. Patient has history of ulcerative colitis and has a J-pouch currently. Patient denies any fevers. He said no vomiting. Denies any blood or black tarry stool. He was seen by primary care physician today in the office and referred to the emergency department. Patient has had prior surgeries for adhesions. [facility] and [facility] done in [facility]. [facility] Medical History BPH (benign prostatic hyperplasia) History of ulcerative colitis Nonrheumatic mitral (valve) prolapse Paroxysmal atrial fibrillation Premature ventricular contractions Recurrent intestinal obstruction VSD (ventricular septal defect) Home Medications ???Medication ???Instructions ???Recorded ???Last Taken ???Type Lactobacills gasseri-Bifidobac 1 cap PO DAILY 06/19/22 Unknown History bifidum,longum 1.5 billion cell capsule (FID3) glucosamine sulfate 2KCl 1,000 mg 2,000 mg PO DAILY 06/19/22 Unknown History tablet (Glucosamine Relief) atenolol 25 mg tablet 12.5 mg (1/2 x 25 mg) PO .PRN PRN 09/07/24 Unknown Rx Elevated Heart Rate #30 tabs flecainide 100 mg tablet 100 mg PO .PRN PRN A-fib #14 tabs 09/07/24 Unknown Rx Allergy/AdvReac Type Severity Reaction Status Date / Time Penicillins Allergy Hives Verified 09/23/24 13:51 propoxyphene napsylate (From Allergy Hives Verified 09/23/24 13:51 Darvocet-N) metronidazole (From Flagyl) AdvReac Vomiting Verified 09/23/24 13:51 Family History (Reviewed 06/19/22 @ 16:08 by René Dubois [employer]ION GRAPHICS DESIGNER, MOTION GRAPHICS DESIGNER-C) Father Hypertension Grandfather Heart disease CVA (cerebral vascular accident) Grandmother CVA (cerebral vascular accident) Surgical History Na's pouch of intestine History of colectomy History of open reduction and internal fixation (ORIF) procedure Social History (Reviewed 06/19/22 @ 16:08 by René Dubois [employer]ION GRAPH[employer] DESIGNER, MOTION GRAPHICS DESIGNER-C) Smoking Status: Never smoker alcohol intake: never substance use type: does not use caffeine: No ROS ROS ED Review of Systems ROS Unobtainable: other Constitutional Constitutional ED: Reports lethargy; Denies chills, fever(s), sweats or weight loss Eyes Eyes: Denies blurry vision, change in vision or diplopia ENT ENT ED: Denies rhinorrhea or sore throat Cardiovascular Cardiovascular: Denies chest pain, orthopnea or racing heartbeat Respiratory/Chest Respiratory/Chest: Denies cough, dyspnea, dyspnea on exertion, orthopnea or sputum Gastrointestinal Gastrointestinal: Reports abdominal pain; Denies diarrhea, nausea or vomiting Genitourinary Genitourinary ED: Denies dysuria, hematuria or urinary frequency Musculoskeletal Musculoskeletal: Denies arthralgias, back pain, myalgias or neck pain Integumentary Denies abscess, Abrasions or rash Neurologic Neurologic: Denies headache(s) or weakness Psychiatric Psychiatric: Denies anxiety, depression or suicidal thoughts Endocrine Endocrinology: Denies polydipsia, polyphagia or polyuria Hematologic/Lymphatic Hematologic/Lymphatic: Denies easy bleeding, easy bruising or lymphadenopathy Allergic/Immunologic Allergic/Immunologic ED: Denies mouth swelling, tongue swelling or urticaria EXAM Physical Exam Const Vital Signs: 09/23/24 13:51 09/23/24 15:50 09/23/24 17:00 Temperature 97.3 F L Temperature Source Temporal Pulse Rate 73 82 75 Respiratory Rate 16 18 18 Blood Pressure 133/80 H Blood Pressure Mean 97 Pulse Ox 98 98 98 Oxygen Delivery Method Room Air Room Air Room Air Positive well nourished and well developed General Appearance ED: well developed and NAD HEENT Reports TM's clear and moist mucous membranes normocephalic and atraumatic; Negative for trauma or tenderness Tympanic Membrane ED: Yes TM's clear Eyes PERRL and EOMs intact bilaterally General Eye ED: Negative for pale conjunctiva or scleral icterus Neck no lymphadenopathy, supple and no JVD General: Negative for (more content not included)... Normal [facility] Eosinophil percentageOrdered By: ED PROVIDER on 09-23-2024 Eosinophils/100 WBC (Bld) 2.3 % 0-5 [facility] Epithelial cells.squamous LM Ql (Urine sed)Ordered By: Hitesh Parson on 09-23-2024 Epithelial cells.squamous LM.HPF (Urine sed) [#/Area] 0 /[HPF] 0-5 [facility] Erythrocyte distribution wid th ratioOrdered By: ED PROVIDER on 09-23-2024 Erythrocyte distribution width (RBC) [Ratio] 12.4 % 11.6-14.6 [facility] Erythrocyte distribution wid th standard deviationOrdered By: ED PROVIDER on 09-23-2024 Erythrocyte distribution width (RBC) [Entitic vol] 37.5 fL 35.1-43.9 [facility] Estimated glomerular filtrat ion rate (GFR) AmericanOrdered By: ED PROVIDER on 09-23-2024 Estimated GFR (MDRD) Amer 118 mL/min >60 [facility] Comment on above: GFR Calc Estimation of creatinine carlie aranceOrdered By: ED PROVIDER on 09-23-2024 Estimated Creatinine Clearance Calc 106.54 ml/min [facility] Glomerular filtration rate ( GFR) estimationOrdered By: ED PROVIDER on 09-23-2024 Estimated GFR (MDRD) Non-Af Amer 97 mL/min >60 [facility] Comment on above: Non- GFR Calc Glucose Ql (U)Ordered By: Re jyotsna Parson on 09-23-2024 Urine Glucose (UA) Normal mg/dl Normal [facility] Glucose measurementOrdered B y: ED PROVIDER on 09-23-2024 Glucose [Mass/Vol] 97 mg/dL 74-106 [facility] Hematocrit Auto (Bld) [Volum e fraction]Ordered By: ED PROVIDER on 09-23-2024 Hematocrit (Bld) [Volume fraction] 47.8 % 40-54 [facility] Hemoglobin measurementOrdere d By: ED PROVIDER on 09-23-2024 Hemoglobin (Bld) [Mass/Vol] 15.4 g/dL 13.0-16.5 [facility] Immature granulocytes/100 WB C Auto (Bld)Ordered By: ED PROVIDER on 09-23-2024 Immature granulocytes/100 WBC (Bld) 0.500 % 0.0-0.9 [facility] Comment on above: IG% - Immature Granu locytes (promyelocytes, myelocytes and metamyelocytes) > 1% indicates that a LEFT SHIFT is Present. Ketones Test strip Ql (U)Ord ered By: Hitesh Parson on 09-23-2024 Ketones Ql (U) Negative Negative [facility] - Chemistry and C hemistry - challengeOrdered By: ED PROVIDER on 09-23-2024 AST [Catalytic activity/Vol] 16 U/L 15-37 [facility] Lactic Acidon 09-23-2024 Lactate [Moles/Vol] 1.0 mmol/L Normal 0.4-1.9 [facility] Comment on above: Order Comment: Y Performed By: #### L 503.6005 #### [facility] [address] [place], [address] Lactic acid measurementOrder ed By: Hitesh Parson on 09-23-2024 Lactate [Moles/Vol] 1.0 mmol/L 0.4-2.0 [facility] Lymphocytes Auto (Unsp spec) [#/Vol]Ordered By: ED PROVIDER on 09-23-2024 Lymphocytes (Bld) [#/Vol] 1.56 10*3/uL 0.83-4.51 [facility] Lymphocytes/100 WBC Auto (Un sp spec)Ordered By: ED PROVIDER on 09-23-2024 Lymphocytes/100 WBC (Bld) 27.9 % 19-41 [facility] MCV (mean corpuscular volume ) determinationOrdered By: ED PROVIDER on 09-23-2024 MCV (RBC) [Entitic vol] 83.4 fL 80-94 [facility] Mean corpuscular hemoglobin (MCH) determinationOrdered By: ED PROVIDER on 09-23-2024 MCH (RBC) [Entitic mass] 26.9 pg Low 27.0-32.0 [facility] Mean corpuscular hemoglobin concentration (MCHC) determinationOrdered By: ED PROVIDER on 09-23-2024 MCHC (RBC) [Mass/Vol] 32.2 g/dL 32-36 [facility] Mean platelet volume determi nationOrdered By: ED PROVIDER on 09-23-2024 Platelet mean volume (Bld) [Entitic vol] 10.1 fL 6.2-12.0 [facility] Microscopic analysis of urin e for red blood cells (RBC)Ordered By: Hitesh Parson on 09-23-2024 Urine RBC 0 SEEN /hpf 0-5 [facility] Monocyte percentageOrdered B y: ED PROVIDER on 09-23-2024 Monocytes/100 WBC (Bld) 6.4 % 0-10 [facility] Mucus LM Ql (Urine sed)Order ed By: Hitesh Parson on 09-23-2024 Mucus Ql (Urine sed) 2+ /hpf [facility] Neutrophil percentageOrdered By: ED PROVIDER on 09-23-2024 Neutrophils/100 WBC (Bld) 62.5 % 47-70 [facility] Nitrite Test strip Ql (U)Ord ered By: Hitesh Parson on 09-23-2024 Nitrite Ql (U) Negative Negative [facility] Nucleated red blood cell per centageOrdered By: ED PROVIDER on 09-23-2024 Nucleated RBC/100 WBC (Bld) [Ratio] 0 % 0-5 [facility] Platelet countOrdered By: ED PROVIDER on 09-23-2024 Platelets (Bld) [#/Vol] 227 10*3/uL 150-450 [facility] Potassium measurementOrdered By: ED PROVIDER on 09-23-2024 Potassium [Moles/Vol] 4.3 mmol/L 3.5-5.1 [facility] Protein Test strip Ql (U)Ord ered By: Hitesh Parson on 09-23-2024 Protein Ql (U) 15 mg/dl High Negative [facility] RBC Auto (Bld) [#/Vol]Ordere d By: ED PROVIDER on 09-23-2024 RBC (Bld) [#/Vol] 5.73 10*6/uL 4.6-6.2 [facility] Serum anion gap measurementO rdered By: ED PROVIDER on 09-23-2024 Anion gap [Moles/Vol] 4 mmol/L Low 5-15 [facility] Serum globulin measurementOr dered By: ED PROVIDER on 09-23-2024 Globulin (S) [Mass/Vol] 3.7 g/dL 2.2-4.2 [facility] Serum or plasma alanine brown otransferase (ALT) measurementOrdered By: ED PROVIDER on 09-23-2024 ALT [Catalytic activity/Vol] 43 U/L 16-61 [facility] Serum or plasma albumin aide urement (mass/volume)Ordered By: ED PROVIDER on 09-23-2024 Albumin [Mass/Vol] 3.8 g/dL 3.2-5.0 [facility] Serum or plasma alkaline bam sphatase measurementOrdered By: ED PROVIDER on 09-23-2024 ALP [Catalytic activity/Vol] 90 U/L 45-117 [facility] Serum or plasma calcium aide urement (mass/volume)Ordered By: ED PROVIDER on 09-23-2024 Calcium [Mass/Vol] 9.0 mg/dL 8.5-10.1 [facility] Serum or plasma creatinine m easurement (mass/volume)Ordered By: ED PROVIDER on 09-23-2024 Creatinine [Mass/Vol] 0.87 mg/dL 0.70-1.30 [facility] Comment on above: The validity of the calculated GFR & GFRAA in patients over 70 years has not been determined. Clinical correlation is essential. Serum or plasma urea nitroge n measurement (mass/volume)Ordered By: ED PROVIDER on 09-23-2024 Urea nitrogen [Mass/Vol] 11 mg/dL 7-18 [facility] Sodium levelOrdered By: ED P ROVIDER on 09-23-2024 Sodium [Moles/Vol] 139 mmol/L 136-145 [facility] Total proteinOrdered By: ED PROVIDER on 09-23-2024 Protein [Mass/Vol] 7.5 g/dL 6.4-8.2 [facility] Urinalysis, Completeon 09-23 BACTERIA 1+ /hpf Normal None Seen [facility] Comment on above: Order Comment: CLEAN CATCH Performed By: #### L 400.0001 #### [facility] [address] [place], [address] EPI,SQUAMOUS 0-5 SEEN Normal 0-5 [facility] Comment on above: Order Comment: CLEAN CATCH Performed By: #### L 400.0001 #### [facility] [address] [place], [address] Mucus Ql (Urine sed) 2+ /hpf Normal [facility] Comment on above: Order Comment: CLEAN CATCH Performed By: #### L 400.0001 #### [facility] [address] [place], [address] WBC 0-5 SEEN Normal 0-5 [facility] Comment on above: Order Comment: CLEAN CATCH Performed By: #### L 400.0001 #### [facility] [address] [place], [address] RBC 0 SEEN Normal 0-5 [facility] Comment on above: Order Comment: CLEAN CATCH Performed By: #### L 400.0001 #### [facility] [address] [place], [place], [address] Urine blood detectionOrdered By: Hitesh Parson on 09-23-2024 Urine Occult Blood Negative Negative [facility] Urine clarityOrdered By: Bre Parson on 09-23-2024 Clarity (U) Clear Clear [facility] Urine color determinationOrd ered By: Hitesh Parson on 09-23-2024 Color (U) Yellow Yellow [facility] Urine leukocyte esterase det ection by dipstickOrdered By: Hitesh Parson on 09-23-2024 Leukocyte esterase Test strip Ql (U) Negative Negative [facility] Urine pHOrdered By: Hitesh Berry gur on 09-23-2024 pH (U) 6.0 [pH] 5.0 - 8.0 [facility] Urine sediment bacteria coun t by microscopy (number/high power field)Ordered By: Hitesh Parson on 09-23-2024 Bacteria LM.HPF (Urine sed) [#/Area] 1 /[HPF] None Seen [facility] Urine specific gravity measu rementOrdered By: Hitesh Parson on 09-23-2024 Specific gravity (U) [Rel density] 1.020 1.002-1.030 [facility] Urobilinogen Ql (U)Ordered B y: Hitesh Parson on 09-23-2024 Urine Urobilinogen Normal mg/dl Normal [facility] White blood cell (WBC) count Ordered By: ED PROVIDER on 09-23-2024 WBC (Bld) [#/Vol] 5.6 10*3/uL 4.4-11.0 [facility] White blood cell countOrdere d By: Hitesh Parson on 09-23-2024 Urine WBC 0-5 SEEN /hpf 0-5 [facility] CNPNon 08-31-2024 CNPN Telephone (FAMPWS) -- RHIANNONROBIN Hawkins ([id number]) 1970 M Date Time Provider Department 08/31/24 [facility] your visit today, we recorded the following information about you: Lillian Martinez MA 08/31/2024 10:23 AM Signed ----- Message from Aixa Alexandre MD sent at 08/31/2024 7:15 AM EST ----- Normal labs aside from high triglycerides. Recommend low cholesterol diet and exercise. Recheck in 1 year. Lillian Martinez MA 08/31/2024 10:24 AM Signed Pt notified of results via flipClass. Lillian Martinez Ma Allergies As of Date: 08/31/2024 Noted Allergy Reaction DARVOCET A500 (PROPOXYPHENE N-BLAS*11/21/2006 4 - Hives FLAGYL (METRONIDAZOLE HCL) 11/21/2006 8 - GI Upset FLOMAX (TAMSULOSIN) 08/27/2024 14 - Other: See Comments Comments: Erectile dysfunction PENICILLINS 11/21/2006 4 - Hives Date Reviewed: 08/27/2024 Reviewed by: Aixa Alexandre MD - Fully Assessed Reason for Visit: Results [95] Prescriptions as of 08/31/2024 - omeprazole (PRILOSEC) 40 mg capsule Take 1 capsule by mouth once daily. - Glucosamine Sulfate (GLUCOSAMINE) 500 mg tab Take 1 tablet by mouth once daily. - L gasseri/B bifidum/B longum ([employer] ORAL) Take 1 capsule by mouth once daily. 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 HbA1c (Bld) [Mass fraction] 5.1 % 4.3 - 5.6 % [facility] Comment on above: [place] Diabetes As sociation guidelines indicate that patients with HgbA1c in the range 5.7-6.4% are at increased risk for development of diabetes, and intervention by lifestyle modification may be beneficial. HgbA1c greater or equal to 6.5% is considered diagnostic of diabetes. [facility] CBC W Auto Differential pane l (Bld)on 08-27-2024 Basophils (Bld) [#/Vol] 0.03 10*3/uL [facility] Basophils/100 WBC (Bld) 0.5 % [facility] Differential cell count method Nom (Bld) Auto [facility] Eosinophils (Bld) [#/Vol] 0.13 10*3/uL [facility] Eosinophils/100 WBC (Bld) 2.3 % [facility] Erythrocyte distribution width (RBC) [Ratio] 12.5 % 11.5 - 15.0 % [facility] Hematocrit (Bld) [Volume fraction] 44.9 % 39.0 - 51.0 % [facility] Hemoglobin (Bld) [Mass/Vol] 14.7 g/dL 13.0 - 17.0 g/dL [facility] Immature granulocytes (Bld) [#/Vol] [facility] Immature granulocytes/100 WBC (Bld) 0.2 % [facility] Lymphocytes (Bld) [#/Vol] 1.54 10*3/uL [facility] Lymphocytes/100 WBC (Bld) 27.8 % [facility] MCH (RBC) [Entitic mass] 27.2 pg 26.0 - 34.0 pg [facility] MCHC (RBC) [Mass/Vol] 32.7 g/dL 30.5 - 36.0 g/dL [facility] MCV (RBC) [Entitic vol] 83.1 fL 80.0 - 100.0 fL [facility] Monocytes (Bld) [#/Vol] 0.32 10*3/uL [facility] Monocytes/100 WBC (Bld) 5.8 % [facility] Neutrophils (Bld) [#/Vol] 3.51 10*3/uL [facility] Neutrophils/100 WBC (Bld) 63.4 % [facility] Nucleated RBC (Bld) [#/Vol] [facility] Nucleated RBC/100 WBC (Bld) [Ratio] 0.0 % /100 WBC [facility] Platelet mean volume (Bld) [Entitic vol] 10.2 fL 9.0 - 12.7 fL [facility] Platelets (Bld) [#/Vol] 222 10*3/uL [facility] RBC (Bld) [#/Vol] 5.40 10*6/uL 4.20 - 6.0 0 m/uL [facility] WBC (Bld) [#/Vol] 5.54 10*3/uL [facility] Basophils (Bld) [#/Vol] 0.03 10*3/uL Normal <0.11 [facility] Comment on above: Order Comment: Speci men Type: BLOOD SPECIMENOrdering Facility: [facility] Address: [address] [place] [address] Performed By: #### 5 7021-8 ####[facility] LABCLIA [id number] [place] [address] [place] Basophils/100 WBC (Bld) 0.5 % Normal [facility] Comment on above: Order Comment: Speci men Type: BLOOD SPECIMENOrdering Facility: [facility] Address: [address] [place] [address] Performed By: #### 5 7021-8 ####[facility]CL[facility] [id number] [place] [address] [place] Differential cell count method Nom (Bld) Auto Normal [facility] Comment on above: Order Comment: Speci men Type: BLOOD SPECIMENOrdering Facility: [facility] Address: [address] [place] [address] Performed By: #### 5 7021-8 ####[facility]CL[facility] [id number] [place] [address] [place] Eosinophils (Bld) [#/Vol] 0.13 10*3/uL Normal <0.46 [facility] Comment on above: Order Comment: Speci men Type: BLOOD SPECIMENOrdering Facility: [facility] Address: [address] [place] [address] Performed By: #### 5 7021-8 ####[facility]CLIA [id number] [place] [address] [place] Eosinophils/100 WBC (Bld) 2.3 % Normal [facility] Comment on above: Order Comment: Speci men Type: BLOOD SPECIMENOrdering Facility: [facility] Address: [address] [place] [address] Performed By: #### 5 7021-8 ####[facility]CL[facility] [id number] [place] [address] [place] Erythrocyte distribution width (RBC) [Ratio] 12.5 % Normal 11.5-15.0 [facility] Comment on above: Order Comment: Speci men Type: BLOOD SPECIMENOrdering Facility: [facility] Address: [address] [place] [address] Performed By: #### 5 7021-8 ####[facility]CLIA [id number] [place] [address] [place] Hematocrit (Bld) [Volume fraction] 44.9 % Normal 39.0-51.0 [facility] Comment on above: Order Comment: Speci men Type: BLOOD SPECIMENOrdering Facility: [facility] Address: [address] [place] [address] Performed By: #### 5 7021-8 ####[facility]CLIA [id number] [place] [address] [place] Hemoglobin (Bld) [Mass/Vol] 14.7 g/dL Normal 13.0-17.0 [facility] Comment on above: Order Comment: Speci men Type: BLOOD SPECIMENOrdering Facility: [facility] Address: [address] [place] [address] Performed By: #### 5 7021-8 ####[facility]CLIA [id number] [place] [address] [place] Immature granulocytes (Bld) [#/Vol] 10*3/uL Normal <0.10 [facility] Comment on above: Order Comment: Speci men Type: BLOOD SPECIMENOrdering Facility: [facility] Address: [address] [place] [address] Performed By: #### 5 7021-8 ####[facility]CLIA [id number] [place] [address] [place] Immature granulocytes/100 WBC (Bld) 0.2 % Normal [facility] Comment on above: Order Comment: Speci men Type: BLOOD SPECIMENOrdering Facility: [facility] Address: [address] [place] [address] Performed By: #### 5 7021-8 ####[facility]CLIA [id number] [place] [address] [place] Lymphocytes (Bld) [#/Vol] 1.54 10*3/uL Normal 1.00-4.00 [facility] Comment on above: Order Comment: Speci men Type: BLOOD SPECIMENOrdering Facility: [facility] Address: [address] [place] [address] Performed By: #### 5 7021-8 ####[facility]CLIA [id number] [place] [address] [place] Lymphocytes/100 WBC (Bld) 27.8 % Normal [facility] Comment on above: Order Comment: Speci men Type: BLOOD SPECIMENOrdering Facility: [facility] Address: [address] [place] [address] Performed By: #### 5 7021-8 ####[facility]CLIA [id number] [place] [address] [place] MCH (RBC) [Entitic mass] 27.2 pg Normal 26.0-34.0 [facility] Comment on above: Order Comment: Speci men Type: BLOOD SPECIMENOrdering Facility: [facility] Address: [address] [place] [address] Performed By: #### 5 7021-8 ####[facility]CLIA [id number] [place] [address] [place] MCHC (RBC) [Mass/Vol] 32.7 g/dL Normal 30.5-36.0 [facility] Comment on above: Order Comment: Speci men Type: BLOOD SPECIMENOrdering Facility: [facility] Address: [address] [place] [address] Performed By: #### 5 7021-8 ####[facility]CLIA [id number] [place] [address] [place] MCV (RBC) [Entitic vol] 83.1 fL Normal 80.0-100.0 [facility] Comment on above: Order Comment: Speci men Type: BLOOD SPECIMENOrdering Facility: [facility] Address: [address] [place] [address] Performed By: #### 5 7021-8 ####[facility] LABCLIA [id number] [place] [address] [place] Monocytes (Bld) [#/Vol] 0.32 10*3/uL Normal <0.87 [facility] Comment on above: Order Comment: Speci men Type: BLOOD SPECIMENOrdering Facility: [facility] Address: [address] [place] [address] Performed By: #### 5 7021-8 ####[facility] LABCLIA [id number] [place] [address] [place] Monocytes/100 WBC (Bld) 5.8 % Normal [facility] Comment on above: Order Comment: Speci men Type: BLOOD SPECIMENOrdering Facility: [facility] Address: [address] [place] [address] Performed By: #### 5 7021-8 ####[facility] LABCLIA [id number] [place] [address] [place] Neutrophils (Bld) [#/Vol] 3.51 10*3/uL Normal 1.45-7.50 [facility] Comment on above: Order Comment: Speci men Type: BLOOD SPECIMENOrdering Facility: [facility] Address: [address] [place] [address] Performed By: #### 5 7021-8 ####[facility] LABCLIA [id number] [place] [address] [place] Neutrophils/100 WBC (Bld) 63.4 % Normal [facility] Comment on above: Order Comment: Speci men Type: BLOOD SPECIMENOrdering Facility: [facility] Address: [address] [place] [address] Performed By: #### 5 7021-8 ####[facility] LABCLIA [id number] [place] [address] [place] Nucleated RBC (Bld) [#/Vol] 10*3/uL Normal <0.01 [facility] Comment on above: Order Comment: Speci men Type: BLOOD SPECIMENOrdering Facility: [facility] Address: [address] [place] [address] Performed By: #### 5 7021-8 ####[facility] LABIA [id number] [place] [address] [place] Nucleated RBC/100 WBC (Bld) [Ratio] 0.0 /100 WBC Normal [facility] Comment on above: Order Comment: Speci men Type: BLOOD SPECIMENOrdering Facility: [facility] Address: [address] [place] [address] Performed By: #### 5 7021-8 ####[facility] LABIA [id number] [place] [address] [place] Platelet mean volume (Bld) [Entitic vol] 10.2 fL Normal 9.0-12.7 [facility] Comment on above: Order Comment: Speci men Type: BLOOD SPECIMENOrdering Facility: [facility] Address: [address] [place] [address] Performed By: #### 5 7021-8 ####[facility] [id number] [place] [address] [place] Platelets (Bld) [#/Vol] 222 10*3/uL Normal 150-400 [facility] Comment on above: Order Comment: Speci men Type: BLOOD SPECIMENOrdering Facility: [facility] Address: [address] [place] [address] Performed By: #### 5 7021-8 ####[facility] LABIA [id number] [place] [address] [place] RBC (Bld) [#/Vol] 5.40 10*6/uL Normal 4.20-6.00 [facility] Comment on above: Order Comment: Speci men Type: BLOOD SPECIMENOrdering Facility: [facility] Address: [address] [place] [address] Performed By: #### 5 7021-8 ####[facility] LABCLIA [id number] [place] [id number] [place] WBC (Bld) [#/Vol] 5.54 10*3/uL Normal 3.70-11.00 [facility] Comment on above: Order Comment: Speci men Type: BLOOD SPECIMENOrdering Facility: [facility] Address: [address] [place] [address] Performed By: #### 5 7021-8 ####[facility] LABCLIA [id number] [place] [id number] [place] CNCOon 08-27-2024 CNCO Letter Text Normal [facility] CNOVon 08-27-2024 CNOV Office Visit (FAMPWS ) -- ROBIN JURADO ([id number]) 1970 M Date Time Provider Department 08/27/24 2:00 PM [facility] During your visit today, we recorded the following information about you: Pulse Respiration Blood pressure Weight 72/minute 16/minute 110/72 81.1 kg Aixa Alexandre MD 08/28/2024 7:54 AM Signed Chief Complaint Patient presents with: Physical HPI Robin Jurado is a 54 year old male who presents here today for Above Complaints. Patient has been in good health without recent hospitalizations, ER visits. No concerns today. Patient still complaining of some discomfort with urination. Symptoms have been present for more than 2 years and have not changed. Occurs about once per month and usually after he has to hold his urination. Was on Flomax in the past but could not tolerate due to Erectile dysfunction. Takes Advil and the symptoms resolve. Admits to weak stream, dribbling after urination, stopping/starting, nocturia 1-2 times per night. Denies urinary frequency, urgency, abdominal pain, fever, chills, nausea, vomiting, flank pain. Would like to continue his current regimen. Patient also complaining of recurrent heartburn to the point he is needing Rolaids on an almost nightly basis. Symptoms are exacerbated with lying down at night. Had difficulty swallowing over the summer which lasted a weekend. After that episode he took Prilosec OTC for 14 days and has not had any dysphagia since. Denies fever/chills, odynophagia, unintentional weight loss, early satiety, nausea, vomiting, watery diarrhea, constipation, melena, hematochezia, abdominal pain. Paroxysmal a fib managed by [facility] cardiology with yearly appointments. States last appointment was about 1 year ago. Asymptomatic since he has been off of the beta madeline and flecainide. Not on ASA at this time. Overdue for follow up with colorectal surgery for history of ulcerative colitis s/p total colectomy with J pouch. Last OV 12/2021 with 2 year follow up recommended for pouchoscopy. Doing well without concerns otherwise. Requesting flu and COVID shot today. Past medical history, appointments, medications, allergies reviewed. Previous Medical History PAST MEDICAL HISTORY Diagnosis Date Atrial fibrillation (HCC) 11/20/[address] Duran Dysphagia Enlarged prostate GERD (gastroesophageal reflux disease) Na's pouch of intestine ([facility]) J pouch, Dr. Kang Inguinal hernia, right Mitral insufficiency Other premature beats Ulcerative colitis, unspecified 11/20/2006 s/p total colectomy VSD (ventricular septal defect) closed Previous Surgical History PAST SURGICAL HISTORY Procedure Laterality Date COLECTOMY TOT ABDL W/PROCTECTOMY W/CONTNT ILEOST 1988 removal of entire colon for UC PAST SURGICAL HISTORY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 Walker MA No [facility] 05-02-2015 Do you have serious difficulty walking or climbing stairs No 05/02/2015 10:34 AM Lizet Walker MA No [facility] 05-02-2015 Do you have difficul ty dressing or bathing No 05/02/2015 10:34 AM Lizet Walker MA No [facility] 05-02-2015 Because of a physica l, mental, or emotional condition, do you have difficulty doing errands alone such as visiting a physician's office or shopping No 05/02/2015 10:34 AM Lizet Walker MA No [facility] Mental Status Date Assessment Result Facility 05-02-2015 Because of a physica l, mental, or emotional condition, do you have serious difficulty concentrating, remembering, or making decisions No 05/02/2015 10:34 AM Lizet Walker MA No [facility] Clinical Notes 03-28-2022 to 02-25-2025 Patient Aixa Germain MD - 02/25/2025 2:25 PM EDT Note Date & Type Note Facility 02-25-2025 Instructions Aixa Alexandre MD - 02/25/2025 2:41 PM EDT Please schedule a follow up appointment with colorectal surgery for a repeat pouchoscopy and possible upper scope. documented in this encounter [facility] 02-25-2025 Note HNO ID: [id number] Author: AIXA ALEXANDRE MD Service: ? Author Type: Physician Type: Progress Notes Filed: 02/26/2025 07:59 Note Text: Chief Complaint Patient presents with: Follow Up: 6 month routine HPI Robin Jurado is a 55 year old male who presents here today for Above Complaints. Patient states that he has not had any recurrence of upper abdominal pain or hematochezia. Had been getting some cramping and bloating with eating bread from the grocery store, so switched to a gluten free diet which has helped with symptoms. Also notes that he [place] omeprazole [place] and is still getting heartburn. Feels like he has more energy. Tried a home remedy for heartburn with probiotics which caused diarrhea. Has been taking antacids at bedtime and then 2-3 times per week. Would like to restart the Omeprazole and will call if fatigue returns. Denies dysphagia, odynophagia. Paroxysmal a fib managed by [facility] cardiology with yearly appointments. States last appointment was about 6 months ago. Advised to take atenolol and flecainide PRN which he has not needed. Not on ASA at this time. Overdue for follow up with colorectal surgery for history of ulcerative colitis s/p total colectomy with J pouch. Last OV 12/2021 with 2 year follow up recommended for pouchoscopy. Doing well without concerns otherwise. Past medical history, appointments, medications, allergies reviewed. Previous Medical History PAST MEDICAL HISTORY Diagnosis Date Atrial fibrillation (HCC) 11/20/[address] Duran Dysphagia Enlarged prostate GERD (gastroesophageal reflux disease) Na's pouch of intestine (HCC) J pouch, Dr. Kang Inguinal hernia, right Mitral insufficiency Other premature beats Ulcerative colitis, unspecified 11/20/2006 s/p total colectomy VSD (ventricular septal defect) closed Previous Surgical History PAST SURGICAL HISTORY Procedure Laterality Date COLECTOMY TOT ABDL W/PROCTECTOMY W/CONTNT ILEOST 1988 removal of entire colon for UC PAST SURGICAL HISTORY OF 1989 Multiple adhesiolysis, Pouch surgery PAST SURGICAL HISTORY OF 1991 Ostomy takedown PAST SURGICAL HISTORY OF 2001 Right wrist ORIF PAST SURGICAL HISTORY OF 1982 nasal fracture repair Family History FAMILY HISTORY Problem Relation Age of Onset Hypertension Father Heart Maternal Grandfather Stroke Paternal Grandfather Stroke Paternal Grandmother Heart Mother abnormal rhythm No Known Problems Sister No Known Problems Brother Emphysema Maternal Grandmother No Known Problems Daughter No Known Problems Daughter No Known Problems Daughter Patient Allergies ALLERGIES Allergen Reactions Darvocet A500 [Prop* Hives Flagyl [Metronidazo* GI Upset Flomax [Tamsulosin] Other: See Comments Erectile dysfunction Penicillins Hives Current Medications Current Outpatient Medications on File Prior to Visit Medication Sig omeprazole (PRILOSEC) 40 mg capsule Take 1 capsule by mouth once daily. Glucosamine Sulfate (GLUCOSAMINE) 500 mg tab Take 1 tablet by mouth once daily. L gasseri/B bifidum/B longum ([email or web address] ORAL) Take 1 capsule by mouth once daily. No current facility-administered medications on file prior to visit. Social History Social History Tobacco Use Smoking status: Never Smokeless tobacco: Never Substance Use Topics Alcohol use: Yes Comment: rare Drug use: No Review of Symptoms REVIEW OF SYSTEMS GENERAL: No weight loss, malaise or fevers RESPIRATORY: Negative for cough, hemoptysis, wheezing, COPD, dyspnea or shortness of breath CARDIOVASCULAR: Negative for chest pain, leg swelling, hypertension, CHF or palpitations GI: No nausea, vomiting, or diarrhea SKIN: Negative for lesions, rash, and itching EXAM: BP 110/74 Pulse 75 Resp 16 Wt 81.6 kg (180 lb) SpO2 99% BMI 23.86 kg/m? General Appearance: Well appearing, alert, in no acute distress, well-hydrated, well nourished.. Skin: Skin color, texture, turgor normal, no suspicious rashes or lesions. Lungs: Lungs clear to auscultation. No wheezing, rhonchi, rales.. Heart: RRR without murmur, gallop, or rubs. No ectopy. Abdomen: Normal abdominal exam, Abdomen soft, non-tender. Bowel sounds normal. No masses, organomegaly. Extremities: No deformities, edema, skin discoloration, clubbing or cyanosis. Good capillary refill. . Health Maintenance List Depression Screening Never done Anxiety Screening Never done Colorectal Cancer Screening Never done Pneumococcal Vaccine: 50+(1 of 1 - PCV) Never done Shingrix Vaccine(1 of 2) due on 08/27/2025 DTaP,Tdap,Td Vaccine(2 - Td or Tdap) due on 06/21/2026 Diabetes Screening due on 08/27/2027 Lipid Screening due on 08/27/2029 Prostate Cancer Screening Discussion due on 08/27/2029 Influenza Vaccine Completed Covid-19 Vaccine Completed Hepatitis B Vaccine Discontinued Hepatitis C Screening Discontinued (more content not included)... [facility] 02-25-2025 History of Present illness Narrative Chief Complaint Patient presents with: Follow Up: 6 month routine HPI Robin Jurado is a 55 year old male who presents here today for Above Complaints. Patient states that he has not had any recurrence of upper abdominal pain or hematochezia. Had been getting some cramping and bloating with eating bread from the grocery store, so switched to a gluten free diet which has helped with symptoms. Also notes that he stopped omeprazole around [facility] and is still getting heartburn. Feels like he has more energy. Tried a home remedy for heartburn with probiotics which caused diarrhea. Has been taking antacids at bedtime and then 2-3 times per week. Would like to restart the Omeprazole and will call if fatigue returns. Denies dysphagia, odynophagia. Paroxysmal a fib managed by [facility] cardiology with yearly appointments. States last appointment was about 6 months ago. Advised to take atenolol and flecainide PRN which he has not needed. Not on ASA at this time. Overdue for follow up with colorectal surgery for history of ulcerative colitis s/p total colectomy with J pouch. Last OV 12/2021 with 2 year follow up recommended for pouchoscopy. Doing well without concerns otherwise. Past medical history, appointments, medications, allergies reviewed. Previous Medical History PAST MEDICAL HISTORY Diagnosis Date Atrial fibrillation (HCC) 11/20/[address] Duran Dysphagia Enlarged prostate GERD (gastroesophageal reflux disease) Na's pouch of intestine (HCC) J pouch, Dr. Kang Inguinal hernia, right Mitral insufficiency Other premature beats Ulcerative colitis, unspecified 11/20/2006 s/p total colectomy VSD (ventricular septal defect) closed Previous Surgical History PAST SURGICAL HISTORY Procedure Laterality Date COLECTOMY TOT ABDL W/PROCTECTOMY W/CONTNT ILEOST 1988 removal of entire colon for UC PAST SURGICAL HISTORY OF 1989 Multiple adhesiolysis, Pouch surgery PAST SURGICAL HISTORY OF 1991 Ostomy takedown PAST SURGICAL HISTORY OF 2001 Right wrist ORIF PAST SURGICAL HISTORY OF 1982 nasal fracture repair Family History FAMILY HISTORY Problem Relation Age of Onset Hypertension Father Heart Maternal Grandfather Stroke Paternal Grandfather Stroke Paternal Grandmother Heart Mother abnormal rhythm No Known Problems Sister No Known Problems Brother Emphysema Maternal Grandmother No Known Problems Daughter No Known Problems Daughter No Known Problems Daughter Patient Allergies ALLERGIES Allergen Reactions Darvocet A500 [Prop* Hives Flagyl [Metronidazo* GI Upset Flomax [Tamsulosin] Other: See Comments Erectile dysfunction Penicillins Hives Current Medications Current Outpatient Medications on File Prior to Visit Medication Sig omeprazole (PRILOSEC) 40 mg capsule Take 1 capsule by mouth once daily. Glucosamine Sulfate (GLUCOSAMINE) 500 mg tab Take 1 tablet by mouth once daily. L gasseri/B bifidum/B longum ([email or web address] ORAL) Take 1 capsule by mouth once daily. No current facility-administered medications on file prior to visit. Social History Social History Tobacco Use Smoking status: Never Smokeless tobacco: Never Substance Use Topics Alcohol use: Yes Comment: rare Drug use: No Review of Symptoms REVIEW OF SYSTEMS GENERAL: No weight loss, malaise or fevers RESPIRATORY: Negative for cough, hemoptysis, wheezing, COPD, dyspnea or shortness of breath CARDIOVASCULAR: Negative for chest pain, leg swelling, hypertension, CHF or palpitations GI: No nausea, vomiting, or diarrhea SKIN: Negative for lesions, rash, and itching EXAM: BP 110/74 Pulse 75 Resp 16 Wt 81.6 kg (180 lb) SpO2 99% BMI 23.86 kg/m General Appearance: Well appearing, alert, in no acute distress, well-hydrated, well nourished.. Skin: Skin color, texture, turgor normal, no suspicious rashes or lesions. Lungs: Lungs clear to auscultation. No wheezing, rhonchi, rales.. Heart: RRR without murmur, gallop, or rubs. No ectopy. Abdomen: Normal abdominal exam, Abdomen soft, non-tender. Bowel sounds normal. No masses, organomegaly. Extremities: No deformities, edema, skin discoloration, clubbing or cyanosis. Good capillary refill. . Health Maintenance List Depression Screening Never done Anxiety Screening Never done Colorectal Cancer Screening Never done Pneumococcal Vaccine: 50+(1 of 1 - PCV) Never done Shingrix Vaccine(1 of 2) due on 08/27/2025 DTaP,Tdap,Td Vaccine(2 - Td or Tdap) due on 06/21/2026 Diabetes Screening due on 08/27/2027 Lipid Screening due on 08/27/2029 Prostate Cancer Screening Discussion due on 08/27/2029 Influenza Vaccine Completed Covid-19 Vaccine Completed Hepatitis B Vaccine Discontinued Hepatitis C Screening Discontinued HIV Screening Discontinued Data reviewed Latest Ref Rng 08/27/2024 WBC 3.70 - 11.00 k/uL 5.54 RBC 4.20 - 6.00 m/uL 5.40 Hemoglobin 13.0 - 17.0 g/dL 14.7 Hematocrit 39.0 - 51.0 % 44.9 MCV 80.0 - 100.0 fL 83.1 MCH 26.0 - 34.0 pg 27.2 MCHC 30.5 - 36.0 g/dL 32.7 RDW-CV 11.5 - 15.0 % 12.5 Platelet Count 150 - 400 k/uL 222 MPV 9.0 - 12.7 fL 10.2 Neut% % 63.4 Abs Neut (ANC) 1.45 - 7.50 k/uL 3.51 Lymph% % 27.8 Abs Lymph 1.00 - 4.00 k/uL 1.54 Oceana% % 5.8 Abs Oceana <0.87 k/uL 0.32 Eosin% % 2.3 Abs Eosin <0.46 k/uL 0.13 Baso% % 0.5 Abs Baso <0.11 k/uL 0.03 Immature Gran % % 0.2 IMMATURE GRANS (ABS) <0.10 k/uL <0.03 NRBC /100 WBC 0.0 Absolute nRBC <0.01 k/uL <0.01 DTYPE Auto Protein, Total 6.3 - 8.0 g/dL 6.8 Albumin 3.9 - 4.9 g/dL 4.3 Calcium 8.5 - 10.2 mg/dL 9.2 Bilirubin, Total 0.2 - 1.3 mg/dL 0.2 Alkaline Phosphatase 38 - 113 U/L 80 AST 14 - 40 U/L 21 ALT 10 - 54 U/L 26 Glucose 74 - 99 mg/dL 101 (H) BUN 9 - 24 mg/dL 11 Creatinine 0.73 - 1.22 mg/dL 1.07 Sodium 136 - 144 mmol/L 141 Potassium 3.7 - 5.1 mmol/L 4.1 Chloride 98 - 107 mmol/L 103 CO2 22 - 30 mmol/L 23 Anion Gap 8 - 15 mmol/L 15 eGFR >=60 mL/min/1.73m 82 Total Cholesterol, Nonfasting <200 mg/dL 163 Triglycerides, Nonfasting <150 mg/dL 173 (H) HDL Cholesterol, Nonfasting >39 mg/dL 50 LDL Cholesterol Calculated, Nonfasting <100 mg/dL 78 Non HDL Cholesterol, Nonfasting <130 mg/dL 113 VLDL Cholesterol, Nonfasting <30 mg/dL 35 (H) Total Chol/HDL Ratio, Nonfasting <5.10 mg/dL 3.26 LDL/HDL Ratio, Nonfasting <2.54 mg/dL 1.56 Hemoglobin A1C 4.3 - 5.6 % 5.1 Estimated Average Glucose mg/dL 100 PSA Screening <2.60 ng/mL 1.85 Legend: (H) High ASSESSMENT/PLAN: 1. Gastroesophageal reflux disease, unspecified whether esophagitis present - ICD9: 530.81, ICD10: K21.9 (primary diagnosis) Symptoms persist. Controlled with 20 mg omeprazole. - Discussed lifestyle modifications including limiting caffeine, and no meals three hours before sleep 2. Atrial fibrillation, unspecified type (HCC) - ICD9: 427.31, ICD10: I48.91 Asymptomatic on medical management. F/u with cardiology as scheduled. No changes to regimen. 3. Na's pouch of intestine (HCC) - ICD9: V44.3, ICD10: Z93.3 Due for pouchoscopy. Has referral order for CR surgery. Will call to schedule. Aixa Alexandre MD documented in this encounter [facility] 11-12-2024 Evaluation note Diagnosis Onset Date Resolution Nonrheumatic mitral (valve) prolapse chronic November 12 025 8:42am Paroxysmal atrial fibrillation chronic November 12 8:42am [facility] Work Phone: [phone] 138-160412-04-2024 NoteHNO ID: [id number] Author: AIXA ALEXANDRE MD Service: ? Author Type: Physician Type: Progress Notes Filed: 09/23/2024 13:38 Note Text: Chief Complaint Patient presents with: Abdominal Pain: Started Thanksgiving- shooting pains that come and go Fatigue: With chills not fevered though HPI Robin Jurado is a 54 year old male with PMH: ulcerative colitis s/p total colectomy with J pouch who presents here today for Above Complaints.. Patient complaining of abdominal pain which started on Thanksgiving after eating grilled cheese with Ham at lunch and is gradually worsening. States that pain is in upper abdomen described as intermittent cramping, currently 6/10 with radiation into his lower abdomen and groin. Has had loss of appetite today and was not able to eat lunch. Has some nausea without vomiting and loose stools. Noted some BRB with wiping today. Admits to chills without fever. Past medical history, appointments, medications, allergies reviewed. Previous Medical History PAST MEDICAL HISTORY Diagnosis Date Atrial fibrillation (HCC) 11/20/[address] Duran Dysphagia Enlarged prostate GERD (gastroesophageal reflux disease) Na's pouch of intestine (HCC) J pouch, Dr. Kang Inguinal hernia, right Mitral insufficiency Other premature beats Ulcerative colitis, unspecified 11/20/2006 s/p total colectomy VSD (ventricular septal defect) closed Previous Surgical History PAST SURGICAL HISTORY Procedure Laterality Date COLECTOMY TOT ABDL W/PROCTECTOMY W/CONTNT ILEOST 1988 removal of entire colon for UC PAST SURGICAL HISTORY OF 1989 Multiple adhesiolysis, Pouch surgery PAST SURGICAL HISTORY OF 1991 Ostomy takedown PAST SURGICAL HISTORY OF 2001 Right wrist ORIF PAST SURGICAL HISTORY OF 1982 nasal fracture repair Family History FAMILY HISTORY Problem Relation Age of Onset Hypertension Father Heart Maternal Grandfather Stroke Paternal Grandfather Stroke Paternal Grandmother Heart Mother abnormal rhythm No Known Problems Sister No Known Problems Brother Emphysema Maternal Grandmother No Known Problems Daughter No Known Problems Daughter No Known Problems Daughter Patient Allergies ALLERGIES Allergen Reactions Darvocet A500 [Prop* Hives Flagyl [Metronidazo* GI Upset Flomax [Tamsulosin] Other: See Comments Erectile dysfunction Penicillins Hives Current Medications Current Outpatient Medications on File Prior to Visit Medication Sig omeprazole (PRILOSEC) 40 mg capsule Take 1 capsule by mouth once daily. Glucosamine Sulfate (GLUCOSAMINE) 500 mg tab Take 1 tablet by mouth once daily. L gasseri/B bifidum/B longum ([email or web address] ORAL) Take 1 capsule by mouth once daily. No current facility-administered medications on file prior to visit. Social History Social History Tobacco Use Smoking status: Never Smokeless tobacco: Never Substance Use Topics Alcohol use: Yes Comment: rare Drug use: No Review of Symptoms REVIEW OF SYSTEMS See HPI EXAM: BP 130/70 Pulse 75 Temp 36.7 ?C (98 ?F) Resp 16 SpO2 99% General Appearance: Ill appearing, sitting upright in chair with coat on shivering. Occasionally holding abdomen due to pain. Skin: Skin color, texture, turgor normal, no suspicious rashes or lesions. Lungs: Lungs clear to auscultation. No wheezing, rhonchi, rales.. Heart: RRR without murmur, gallop, or rubs. No ectopy. Abdomen: Abdomen soft, . No masses, organomegaly, Negative CVA tenderness, Positive findings: tenderness marked epigastric with guarding, hypoactive bowel sounds. Health Maintenance List Depression Screening Never done Anxiety Screening Never done Colorectal Cancer Screening Never done Shingrix Vaccine(1 of 2) due on 08/27/2025 DTaP,Tdap,Td Vaccine(2 - Td or Tdap) due on 06/21/2026 Diabetes Screening due on 08/27/2027 Lipid Screening due on 08/27/2029 Influenza Vaccine Completed Covid-19 Vaccine Completed Hepatitis B Vaccine Discontinued Hepatitis C Screening Discontinued HIV Screening Discontinued ASSESSMENT/PLAN: 1. Epigastric pain - ICD9: 789.06, ICD10: R10.13 (primary diagnosis) Concerned for bowel obstruction vs mass vs infection. Recommend ER evaluation for immediate evaluation. Patient refusing EMS and will drive self to [facility] ED. Report called to [facility] ER physician. Will f/u on discharge. 2. Decreased appetite - ICD9: 783.0, ICD10: R63.0 See above 3. Nausea - ICD9: 787.02, ICD10: R11.0 See above 4. Change in bowel movement - ICD9: 787.99, ICD10: R19.8 See above 5. BRBPR (bright red blood per rectum) - ICD9: 569.3, ICD10: K62.5 See above. Aixa Alexandre [facility]12-04-2024 History of Present illness Narrative* Aixa Alexandre MD - 09/23/2024 1:15 PM EST Chief Complaint Patient presents with: Abdominal Pain: Started Thanksgiving- shooting pains that come and go Fatigue: With chills not fevered though HPI Robin Jurado is a 54 year old male with PMH: ulcerative colitis s/p total colectomy with J pouchwho presents here today for Above Complaints.. Patient complaining of abdominal pain which started on Thanksgiving after eating grilled cheese with Ham at lunch and is gradually worsening. States that pain is in upper abdomen described as intermittent cramping, currently 6/10 with radiation into his lower abdomen and groin. Has had loss of appetite today and was not able to eat lunch. Has some nausea without vomiting and loose stools. Noted some BRB with wiping today. Admits to chills without fever. Past medical history, appointments, medications, allergies reviewed. Previous Medical History PAST MEDICAL HISTORY Diagnosis Date Atrial fibrillation (HCC) 11/20/[address] Duran Dysphagia Enlarged prostate GERD (gastroesophageal reflux disease) Na's pouch of intestine (HCC) J pouch, Dr. Kang Inguinal hernia, right Mitral insufficiency Other premature beats Ulcerative colitis, unspecified 11/20/2006 s/p total colectomy VSD (ventricular septal defect) closed Previous Surgical History PAST SURGICAL HISTORY Procedure Laterality Date COLECTOMY TOT ABDL W/PROCTECTOMY W/CONTNT ILEOST 1988 removal of entire colon for UC PAST SURGICAL HISTORY OF 1989 Multiple adhesiolysis, Pouch surgery PAST SURGICAL HISTORY OF 1991 Ostomy takedown PAST SURGICAL HISTORY OF 2001 Right wrist ORIF PAST SURGICAL HISTORY OF 1982 nasal fracture repair Family History FAMILY HISTORY Problem Relation Age of Onset Hypertension Father Heart Maternal Grandfather Stroke Paternal Grandfather Stroke Paternal Grandmother Heart Mother abnormal rhythm No Known Problems Sister No Known Problems Brother Emphysema Maternal Grandmother No Known Problems Daughter No Known Problems Daughter No Known Problems Daughter Patient Allergies ALLERGIES Allergen Reactions Darvocet A500 [Prop* Hives Flagyl [Metronidazo* GI Upset Flomax [Tamsulosin] Other: See Comments Erectile dysfunction Penicillins Hives Current Medications Current Outpatient Medications on File Prior to Visit Medication Sig omeprazole (PRILOSEC) 40 mg capsule Take 1 capsule by mouth once daily. Glucosamine Sulfate (GLUCOSAMINE) 500 mg tab Take 1 tablet by mouth once daily. L gasseri/B bifidum/B longum ([email or web address] ORAL) Take 1 capsule by mouth once daily. No current facility-administered medications on file prior to visit. Social History Social History Tobacco Use Smoking status: Never Smokeless tobacco: Never Substance Use Topics Alcohol use: Yes Comment: rare Drug use: No Review of Symptoms REVIEW OF SYSTEMS See HPI EXAM: BP 130/70 Pulse 75 Temp 36.7 C (98 F) Resp 16 SpO2 99% General Appearance: Ill appearing, sitting upright in chair with coat on shivering. Occasionally holding abdomen due to pain. Skin: Skin color, texture, turgor normal, no suspicious rashes or lesions. Lungs: Lungs clear to auscultation. No wheezing, rhonchi, rales.. Heart: RRR without murmur, gallop, or rubs. No ectopy. Abdomen: Abdomen soft, . No masses, organomegaly, Negative CVA tenderness, Positive findings: tenderness marked epigastric with guarding, hypoactive bowel sounds. Health Maintenance List Depression Screening Never done Anxiety Screening Never done Colorectal Cancer Screening Never done Shingrix Vaccine(1 of 2) due on 08/27/2025 DTaP,Tdap,Td Vaccine(2 - Td or Tdap) due on 06/21/2026 Diabetes Screening due on 08/27/2027 Lipid Screening due on 08/27/2029 Influenza Vaccine Completed Covid-19 Vaccine Completed Hepatitis B Vaccine Discontinued Hepatitis C Screening Discontinued HIV Screening Discontinued ASSESSMENT/PLAN: 1. Epigastric pain - ICD9: 789.06, ICD10: R10.13 (primary diagnosis) Concerned for bowel obstruction vs mass vs infection. Recommend ER evaluation for immediate evaluation. Patient refusing EMS and will drive self to [facility] ED. Report called to [facility] ER physician. Will f/uon discharge. 2. Decreased appetite - ICD9: 783.0, ICD10: R63.0 See above 3. Nausea - ICD9: 787.02, ICD10: R11.0 See above 4. Change in bowel movement - ICD9: 787.99, ICD10: R19.8 See above 5. BRBPR (bright red blood per rectum) - ICD9: 569.3, ICD10: K62.5 See above. Aixa Alexandre MD [facility] Tele[facility] encounter Note * Telephone Encounter - Fredi Pichardo LPN - 09/23/2024 11:33 AM EST . Pt calls and states the following: ABDOMINAL PAIN and cramping LOCATION: lower abd in the center and upper abd- cramping RADIATION: none ONSET: 2 days that he is noticing. Thanksgiving was have this a little. SUDDEN: gradual PATTERN: none SEVERITY: pain scale 4 comes and goes RECURRENT SYMPTOMS: Pt has a colostomy and he is noticing has to work to have a BM, When it comes if is loose. Increased urination. Pt reports he is in the bathroom every 2 hours urinating CAUSE: unknown RELIEVING/AGGRAVATING FACTORS: none OTHER SYMPTOMS: per pt feels like gas pain Pt not certain what is going on. Pt scheduled for an apt today 09-23-24 with provider/team. Fredi Pichardo LPN [facility]12-04-2024 Miscellaneous Notes* Telephone Encounter - Fredi Pichardo LPN - 09/23/2024 11:33 AM EST . Pt calls and states the following: ABDOMINAL PAIN and cramping LOCATION: lower abd in the center and upper abd- cramping RADIATION: none ONSET: 2 days that he is noticing. Thanksgiving was have this a little. SUDDEN: gradual PATTERN: none SEVERITY: pain scale 4 comes and goes RECURRENT SYMPTOMS: Pt has a colostomy and he is noticing has to work to have a BM, When it comes if is loose. Increased urination. Pt reports he is in the bathroom every 2 hours urinating CAUSE: unknown RELIEVING/AGGRAVATING FACTORS: none OTHER SYMPTOMS: per pt feels like gas pain Pt not certain what is going on. Pt scheduled for an apt today 09-23-24 with provider/team. Fredi Pichardo LPN [facility] Telephone encounter Note * Telephone Encounter - Lillian Martinez MA - 08/31/2024 10:23 AM EST Pt notified of results via [employer]. Lillian Martinez Ma [facility]11-11-2024 Telephone encounter Note* Telephone Encounter - Lillian Martinez MA - 08/31/2024 10:23 AM EST ----- Message from Aixa Alexandre MD sent at 08/31/2024 7:15 AM EST ----- Normal labs aside from high triglycerides. Recommend low cholesterol diet and exercise. Recheck in 1 year. [facility]11-11-2024 Miscellaneous Notes* Telephone Encounter - Lillian Martinez MA - 08/31/2024 10:23 AM EST Pt notified of results via [employer]. Lillian Martinez Ma * Telephone Encounter - Lillian Martinez MA - 08/31/2024 10:23 AM EST ----- Message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 tablet by mouth once daily. L gasseri/B bifidum/B longum ([email or web address] ORAL) Take 1 capsule by mouth once daily. No current facility-administered medications on file prior to visit. Social History Social History Tobacco Use Smoking status: Never Smokeless tobacco: Never Substance Use Topics Alcohol use: No Drug use: No Review of Symptoms REVIEW OF SYSTEMS See HPI EXAM: BP 110/74 Pulse 64 Temp 36.9 C (98.5 F) Resp 16 Wt 81.4 kg (179 lb 6.4 oz) SpO2 96% BMI23.78 kg/m General Appearance: Well appearing, alert, in no acute distress, well-hydrated, well nourished.. Skin: Skin color, texture, turgor normal, no suspicious rashes or lesions. Abdomen: Abdomen soft, non-tender. Bowel sounds normal. No masses, organomegaly. Musculoskeletal: TTP over right lower lateral ribs without crepitus. Health Maintenance List Depression Screening Never done Anxiety Screening Never done Hepatitis C Screening Never done HIV Screening Never done Hepatitis B Vaccine(1 of 3 - 19+ 3-dose series) Never done Colorectal Cancer Screening Never done Shingrix Vaccine(1 of 2) Never done Influenza Vaccine(1) due on 06/21/2024 Diabetes Screening due on 03/22/2025 DTaP,Tdap,Td Vaccine(2 - Td or Tdap) due on 06/21/2026 Lipid Screening due on 03/22/2027 Covid-19 Vaccine Completed ASSESSMENT/PLAN: 1. Rib pain on right side - ICD9: 786.50, ICD10: R07.81 Patient is exquisitely TTP over right lower and lateral ribs without bruising, swelling or crepitus. Will obtain xray to rule out fracture. Discussed rest, ice, and tylenol while awaiting results. Abdominal exam normal. Red flags for re-assessment reviewed with patient in detail. - XR RIBS/CHEST 3V AP RIB/OBLS/CXR RIGHT Aixa Alexandre MD documented in this encounterOhio[facility]03-03-[facility]23 History of Present illness Narrative* Aixa Alexandre MD - 12/21/2022 9:55 AM EST Chief Complaint Patient presents with: Testicle: Lump in left testicle. Medication Problem: Questioning- flomax HPI Robin Jurado is a 52 year old male who presents here today for Above Complaints. Patient states that he noticed a small non tender lump on his left testicle about 1 week ago. Just a couple mm in size. Has not changed and wanted it checked today. Denies fever/chills, penile discharge, dysuria, hematuria, testicular pain/swelling. Also notes that since he started Flomax last March for weak stream, dribbling after urination, stopping/starting, nocturia 1-2 times per night he has noticed some erectile dysfunction. Dribbling has improved. Denies nocturia >1 time per night, dysuria, hematuria, frequency, urgency, weak stream, straining. Past medical history, appointments, medications, allergies reviewed. Previous Medical History PAST MEDICAL HISTORY Diagnosis Date Atrial fibrillation (HCC) 11/20/[address] 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 Kang Mitral insufficiency Other premature beats Ulcerative colitis, unspecified 11/20/2006 s/p removal of entire colon VSD (ventricular septal defect) closed Previous Surgical History PAST SURGICAL HISTORY Procedure Laterality Date COLECTOMY TOT ABDL W/PROCTECTOMY W/CONTNT ILEOST 1988 removal of entire colon for UC PAST SURGICAL HISTORY OF 1989 Multiple adhesiolysis, Pouch surgery PAST SURGICAL HISTORY OF 1991 Ostomy takedown PAST SURGICAL HISTORY OF 2001 Right wrist ORIF PAST SURGICAL HISTORY OF 1982 nasal fracture repair Family History FAMILY HISTORY Problem Relation Age of Onset Hypertension Father Heart Maternal Grandfather Stroke Paternal Grandfather Stroke Paternal Grandmother Heart Mother abnormal rhythm No Known Problems Sister No Known Problems Brother Emphysema Maternal Grandmother No Known Problems Daughter No Known Problems Daughter No Known Problems Daughter Patient Allergies ALLERGIES Allergen Reactions Darvocet A500 [Prop* Hives Flagyl [Metronidazo* GI Upset Penicillins Hives Current Medications Current Outpatient Medications on File Prior to Visit Medication Sig tamsulosin (FLOMAX) 0.4 mg Take 1 capsule by mouth daily at bedtime. Dddhhwksevpsz-Paogtwid-Sopvyw (MULTIVITAMIN 50 PLUS) tab Take 1 tablet by mouth once daily. Glucosamine Sulfate (GLUCOSAMINE) 500 mg tab Take 1 tablet by mouth once daily. L gasseri/B bifidum/B longum ([email or web address] ORAL) Take 1 capsule by mouth once daily. No current facility-administered medications on file prior to visit. Social History Social History Tobacco Use Smoking status: Never Smokeless tobacco: Never Substance Use Topics Alcohol use: No Drug use: No Review of Symptoms REVIEW OF SYSTEMS See HPI EXAM: BP 106/62 Pulse 74 Resp 16 Wt 80.9 kg (178 lb 6.4 oz) SpO2 98% BMI 23.64 kg/m General Appearance: Well appearing, alert, in no acute distress, well-hydrated, well nourished.. Skin: Skin color, texture, turgor normal, no suspicious rashes or lesions. Genitalia: Penis normal. No urethral discharge. Scrotum normal to palpation. Positive for right inguinal hernia which does not extend into scrotum. Health Maintenance List HEPATITIS B(1 of 3 - 3-dose series) Never done COLORECTAL CANCER SCREENING Never done SHINGRIX VACCINE(1 of 2) Never done COVID-19 VACCINE(5 - Booster for Pf[employer] series) due on 05/17/2022 INFLUENZA(1) due on 06/21/2022 DEPRESSION ASSESSMENT Never done HEPATITIS C SCREENING due on 03/22/2023 HIV SCREENING due on 03/22/2023 DIABETES SCREEN due on 03/22/2025 DTAP,TDAP,TD(2 - Td or Tdap) due on 06/21/2026 LIPID SCREEN due on 03/22/2027 ASSESSMENT/PLAN: 1. Testicle lump - ICD9: 608.89, ICD10: N50.89 (primary diagnosis) No palpable mass on exam. Reassured benign findings. Advised to monitor at home and call with changes. 2. Inguinal hernia, right - ICD9: 550.90, ICD10: K40.90 New finding today. Asymptomatic. Offered referral to general surgery for repair which he is refusing. Given information for home. Discussed avoiding heavy lifting. Red flags for re-assessment reviewed with patient in detail. 3. Drug-induced erectile dysfunction - ICD9: 607.84, E980.5, ICD10: N52.2 Stop flomax and call in 1-2 weeks if not improving. Medical Decision Making: Problems: Moderate: New problem with uncertain prognosis Risk: Moderate: Moderate risk from testing/treatment Medical Decision Making Level: 4 - Moderate Aixa Alexandre MD documented in this encounterOhio[facility]11-18-2022 Miscellaneous Notes* Telephone Encounter - DEMETRA Iglesias - 09/07/2022 9:59 AM EST Patient phones requesting refills as follows: Requested Prescriptions Pending Prescriptions Disp Refills tamsulosin (FLOMAX) 0.4 mg 90 capsule 1 Sig: Take 1 capsule by mouth daily at bedtime. THEE 03/22/22 NOV No future appointment scheduled Please review and advise. DEMETRA Iglesias documented in this encounterOhiohealth O[facility]06-08-2022 Miscellaneous Notes* Telephone Encounter - Shruti Stevens Ma - 03/28/2022 1:55 PM EDT Patient was left detailed message on confidential vm Shruti Stevens Ma * Telephone Encounter - Carmella Gomes APRN.CNP - 03/28/2022 1:36 PM EDT Please call patient and let him know his urinalysis shows no concerning findings. The rest of his blood work is in acceptable ranges. Continue current medications. 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 [facility] [facility] Diagnosis Rib pain on right side- Primary Chest pain, unspecified [facility] Diagnosis Rib pain on right side Chest pain, unspecified [facility] Diagnosis Annual physical exam- Primary Routine general medical examination at a health care facility Atrial fibrillation, unspecified type (HCC) Dysuria Enlarged prostate Hypertrophy of prostate without urinary obstruction and other lower urinary tract symptoms (LUTS) Gastroesophageal reflux disease, unspecified whether esophagitis present Esophageal dysphagia Dysphagia, pharyngoesophageal phase History of ulcerative colitis Personal history of other diseases of digestive system Na's pouch of intestine (HCC) Colostomy status Encounter for immunization Need for other specified prophylactic vaccination against single bacterial disease Screening for prostate cancer Special screening for malignant neoplasm of prostate documented in this encounter [facility] note* Diagnosis Epigastric pain- Primary Abdominal pain, epigastric Decreased appetite Anorexia Nausea Nausea alone Change in bowel movement Other symptoms involving digestive system BRBPR (bright red blood per rectum) Hemorrhage of rectum and anus documented in this encounter [facility] note* Diagnosis Gastroesophageal reflux disease, unspecified whether esophagitis present- Primary Atrial fibrillation, unspecified type (HCC) Na's pouch of intestine (HCC) Colostomy status documented in this encounter [facility] for referral (narrative)* Diagnostic Procedure Only (Routine) - Closed Specialty Diagnoses / Procedures Referred By Linda burgess Referred To Contact XR IMAGING Diagnoses Rib pain on right side Procedures XR RIBS/CHEST 3V AP RIB/OBLS/CXR RIGHT RADEX RIBS UNI W/POSTEROANT CH MINIMUM 3 VIEWS Aixa Alexandre MD [address] [place] [id number] [place] [address] Referral ID Status Reason Start Date Expiration Date V isits Requested Visits Authorized [id number] Closed Auto-Generate d Referral 05/19/2024 06/18/2025 1 1 [facility] for referral (narrative)* Diagnostic Procedure Only (Routine) - Closed Specialty Diagnoses / Procedures Referred By Contalexandro t Referred To Contact XR IMAGING Diagnoses Rib pain on right side Procedures XR RIBS/CHEST 3V AP RIB/OBLS/CXR RIGHT RADEX RIBS UNI W/POSTEROANT CH MINIMUM 3 VIEWS Aixa Alexandre MD [address] [place] [id number] [place] [address] Referral ID Status Reason Start Date Expiration Date V isits Requested Visits Authorized [id number] Closed Auto-Generate d Referral 05/19/2024 06/18/2025 1 1 [facility]ative)No reason for referral information availableWLancaster [facility] Work Phone: Reason for visit Narrative* Diagnostic Procedure Only (Routine) - Closed Specialty Diagnoses / Procedures Referred By Timboac t Referred To Contact XR IMAGING Diagnoses Rib pain on right side Procedures XR RIBS/CHEST 3V AP RIB/OBLS/CXR RIGHT RADEX RIBS UNI W/POSTEROANT CH MINIMUM 3 VIEWS Aixa Alexandre MD [address] [place] [address] [place] [address] Referral ID Status Reason Start Date Expiration Date V isits Requested Visits Authorized [id number] Closed Auto-Generate d Referral 05/19/2024 06/18/2025 1 1 [facility] Reason for Referral Specialty Diagnoses / Procedures Referred By Linda t Referred To Contact Colon and Rectal Surgery Diagnoses Na's pouch of intestine (HCC) History of ulcerative colitis Procedures CONSULT TO COLO-RECTAL SURGERY OFFICE/OUTPATIENT [facility] 60 MINUTES Aixa Alexandre MD [address] [place] [id number] Referral ID Status Reason Start Date Expiration Date Visits Requested Visits Authorized [id number] Authorized PCP Requested Referral 08/27/2024 08/27/2025 1 1 Specialty Diagnoses / Procedures Referred By Linda burgess Referred To Contact General Surgery Diagnoses Gastroesophageal reflux disease, unspecified whether esophagitis present Esophageal dysphagia Procedures CONSULT TO GENERAL SURGERY OFFICE/OUTPATIENT [facility] 60 MINUTES Aixa Alexandre MD [address] [place], [place] [id number] Referral ID Status Reason Start Date Expiration Date Visits Requested Visits Authorized [id number] Authorized PCP Requested Referral 08/27/2024 08/27/2025 1 1 Chief Complaint and Reason for Visit Chief Complaint Admit Date ABD PAIN September 23, 2024 1 :50pm 1 Y FU November 12, 2024 8 :42am AFIB January 14, 2025 9:4 5am Reason for Visit Admit Date Nonrheumatic mitral (valve) prolapse Corby uary 2024 8:42am Paroxysmal atrial fibrillation October 222024 8:42am Family History No Family History Records Found Relationship Condition Age at Onset Recorded Date/T gisele father Hypertension Unknown grandfather Cardiac disease Unknown Cerebrovascular accident (CVA) Unknown grandmother Cerebrovascular accident (CVA) Unknown Advance Directives No Advanced Directives Records Found Advance Directive Response Recorded Date/ Time Living Will No August 15 1:18pm Do you have a Healthcare Pow er of Flooring Installer? No August 15, 2023 1:18pm Living Will Yes September 23 4:10pm Do you have a Healthcare Pow er of Flooring Installer? Yes September 23, 2024 4:10pm Name of Medical Power of Flooring Installer Areli Cheney ( and daughter) September 23, 2024 4:10pm Advance Directives No August 15, 2023 1:18pm Summary Purpose Additional Source Comments Source Comments (unrecognize d section and content) In the event this informatio n is protected by the Federal Confidentiality of Alcohol and Drug Abuse Patient Records regulations: The Federal rules restrict any use of the information to criminally investigate or prosecute any alcohol or drug abuse patient.[facility] the event this information is protected by the Federal Confidentiality of Alcohol and Drug Abuse Patient Records regulations: The Federal rules restrict any use of the information to criminally investigate or prosecute any alcohol or drug abuse patient.[facility] the event this information is protected by the Federal Confidentiality of Alcohol and Drug Abuse Patient Records regulations: The Federal rules restrict any use of the information to criminally investigate or prosecute any alcohol or drug abuse patient.[facility] Hospital[facility] the event this information is protected by the Federal Confidentiality of Alcohol and Drug Abuse Patient Records regulations: The Federal rules restrict any use of the information to criminally investigate or prosecute any alcohol or drug abuse patient.[facility] Hospital[facility] the event this information is protected by the Federal Confidentiality of Alcohol and Drug Abuse Patient Records regulations: The Federal rules restrict any use of the information to criminally investigate or prosecute any alcohol or drug abuse patient.[facility] Hospital[facility] the event this information is protected by the Federal Confidentiality of Alcohol and Drug Abuse Patient Records regulations: The Federal rules restrict any use of the information to criminally investigate or prosecute any alcohol or drug abuse patient.[facility] Hospital[facility] the event this information is protected by the Federal Confidentiality of Alcohol and Drug Abuse Patient Records regulations: The Federal rules restrict any use of the information to criminally investigate or prosecute any alcohol or drug abuse patient.[facility] HospitalIn the event this information is protected by the Federal Confidentiality of Alcohol and Drug Abuse Patient Records regulations: The Federal rules restrict any use of the information to criminally investigate or prosecute any alcohol or drug abuse patient.[facility] HospitalIn the event this information is protected by the Federal Confidentiality of Alcohol and Drug Abuse Patient Records regulations: The Federal rules restrict any use of the information to criminally investigate or prosecute any alcohol or drug abuse patient.[facility] HospitalIn the event this information is protected by the Federal Confidentiality of Alcohol and Drug Abuse Patient Records regulations: The Federal rules restrict any use of the information to criminally investigate or prosecute any alcohol or drug abuse patient.[facility] HospitalIn the event this information is protected by the Federal Confidentiality of Alcohol and Drug Abuse Patient Records regulations: The Federal rules restrict any use of the information to criminally investigate or prosecute any alcohol or drug abuse patient.[facility] Reason for Visit (unrecogniz ed section and content) Reason Comments Results Reason Onset Date Comments Refill Request 09/07/2022 Reason Comments Testicle Lump in left testicl e. Medication Problem Questioning- flomax Reason Comments Abdominal Pain Right sided pain inj ured the . Patient felt it was improving last weeek but now pain worse. Reason Comments Physical Reason Comments Future Appointment Reason Comments Abdominal Pain Started Thanksgiving - shooting pains that come and go Fatigue With chills not feve red though Reason Comments Follow Up 6 month routine Care Teams (unrecognized sec tion and content) Combination Machine Tool Setter Relationship Specialty Start Date End Date Aixa Alexandre MD [address] [place], [place] [phone] PCP - General Family Practice 02/26/19 Combination Machine Tool Setter Relationship Specialty Start Date End Date Aixa Alexandre MD [address] [place], [place] [id number] PCP - General Family Medicine 02/26/19 Combination Machine Tool Setter Relationship Specialty Start Date End Date Aixa Alexandre MD [address] [place], [place] [id number] PCP - General Family Medicine 02/26/19 Combination Machine Tool Setter Relationship Specialty Start Date End Date Aixa Alexandre MD [address] [place], [place] [id number] PCP - General Family Medicine 02/26/19 Combination Machine Tool Setter Relationship Specialty Start Date End Date Aixa Alexandre MD [address] [facility] [place] [address] PCP - General Family Medicine 02/26/19 Combination Machine Tool Setter Relationship Specialty Start Date End Date Aixa Alexandre MD [address] [facility] [place] [address] PCP - General Family Medicine 02/26/19 Combination Machine Tool Setter Relationship Specialty Start Date End Date Aixa Alexandre MD [address] [facility] [place] [address] PCP - General Family Medicine 02/26/19 Combination Machine Tool Setter Relationship Specialty Start Date End Date Aixa Alexandre MD [address] [facility] [place] [address] PCP - General Family Medicine 02/26/19 Combination Machine Tool Setter Relationship Specialty Start Date End Date Aixa Alexandre MD [address] [facility] [place] [address] PCP - General Family Medicine 02/26/19 Combination Machine Tool Setter Relationship Specialty Start Date End Date Aixa Alexandre MD [address] [facility] [place] [address] PCP - General Family Medicine 02/26/19 Team Status: Active Member Role Status Dates Dr. Jose Angel Alexandre MD Primary Care Provider Acti ve Team Status: Inactive Member Role Status Dates Dr. Jose Angel Alexandre MD Primary Care Provider Acti ve Start: September 23, 2024 End: September 23, 2024 Dr. Hitesh Parson , Attending Provider Active S tart: September 23, 2024 End: September 23, 2024 Dr. Hitesh Parson , Emergency Provider Active S tart: September 23, 2024 End: September 23, 2024 Team Status: Inactive Member Role Status Dates Dr. Jose Angel Alexandre MD Primary Care Provider Acti ve Start: November 12, 2024 End: November 12, 2024 Dr. Jose Angel Alexandre MD Referring Provider Active Start: November 12, 2024 End: November 12, 2024 Dr. Hugo Duran MD Attending Provider Active S tart: November 12, 2024 End: November 12, 2024 Team Status: Inactive Member Role Status Dates Dr. Jose Angel Alexandre MD Primary Care Provider Acti ve Start: January 14, 2025 End: January 14, 2025 Dr. Hugo Duran MD Attending Provider Active S tart: January 14, 2025 End: January 14, 2025 Dr. Hugo Duran MD Referring Provider Active S tart: January 14, 2025 End: January 14, 2025 Team Status: Active Member Role Status Dates Dr. Jose Angel Alexandre MD Primary Care Provider Acti ve Start: January 14, 2025 Dr. Hugo Duran MD Attending Provider Active S tart: January 14, 2025 Combination Machine Tool Setter Relationship Specialty Start Date End Date Aixa Alexandre MD [address] [place], [place] [phone] PCP - General Family Medicine 02/26/19 Carmella Gomes APRN.[employer] [address] [place], [place] [id number] [facility] 09/26/24 Marla Stroud DOOR REPAIRMAN.[employer] ADVISOR [address] [place], [place] [id number] [facility] 01/11/25 Goals (unrecognized section and content) Goals may be documented in a n alternate section (unrecognized sect ion and content) No Status Records FoundNo Status Records Found INFORMATION SOURCE (unrecogn ized section and content) DATE CREATED AUTHOR 01/20/2025 [facility] DATE CREATED AUTHOR AUTHOR'S OCHOA ATION 03/01/2025 [facility] FOR RECORDS PERTAINING TO PATIENTS WHO ARE OR HAVE BEEN ENROLLED IN A CHEMICAL DEPENDENCY/SUBSTANCEABUSE PROGRAM, SOME INFORMATION MAY BE OMITTED. This clinical summary was aggregated from multiple sources. Caution should be exercised in using it in the provision of clinical care. This summary normalizes information from multiple sources, and as a consequence, information in this document may materially change the coding, format and clinical context of patient data. In addition, data may be omitted in some cases. CLINICAL DECISIONS SHOULD BE BASED ON THE PRIMARY CLINICAL RECORDS. [facility] [employer] Cover[employer] [facility]. provides no warranty or guarantee of the accuracy or completeness of information in this document.
[2025-04-16 20:32] LABS: Troponin T High Sens 2 HR < 6 ng/L (<=22)
--- OUTSIDE RECORDS SUMMARY | 2025-04-16 21:11 | XMS RPT_ITS | CCD ---
Author Organization [facility] Care Team Providers Care Office Support Specialist Name Role Phone Aixa Alexandre MD Primary Care Provider Bettie BRADFORD, Dr. Walter Primary Care Provider Dr. Hitesh Parson DO Attending Provider Dr. Hitesh Parson DO Emergency Provider [phone] Bettie BRADFORD, Dr. Walter Referring Provider Roger BRADFORD, Dr. Arias Attending Provider [phone] Roger BRADFORD, Dr. Arias Referring Provider [phone] Hitesh Parson Attending Unavailable Jose Angel Alexandre Primary Care Unavailable Jose Angel Alexandre Primary Care Unavailable Hugo Duran Attending Unavailable Hugo Duran Attending Unavailable Hugo Duran Referring Unavailable Jose Angel Alexandre Primary Care Unavailable Hugo Duran Attending Unavailable Jose Angel Alexandre Primary Care Unavailable Jose Angel Alexandre Referring Unavailable Aixa Alexandre MD Primary Care Provider Podlogar SOFTWARE PROJECT ENGINEER.Carmella RAMIREZ Unavailable Maximus SOFTWARE PROJECT ENGINEER.Marla RAMIREZ Unavailable AIXA ALEXANDRE Attending Unavailab AIXA Bañuelos Primary Care [...] [METRONIDAZOLE HCL] Drug Allergy 7 GI Upset [facility] Work Phone: (2 sources) Penicillins; Translations: [PENICILLINS] Propensity to adverse reactions 7 [facility] Work Phone: (12 sources) Propoxyphene N-Acetaminophen; Translations: [PROPOXYPHENE N-ACETAMINOPHEN] Propensity to adverse reactions 7 [facility] Work Phone: (9 sources) Penicillins Propensity to adverse reactions 7 [facility] Work Phone: (6 sources) tamsulosin; Translations: [TAMSULOSIN] Drug Allergy 4 Other: See [facility] (1 source) metroNIDAZOLE Drug Allergy 5 [facility] (1 source) Penicillins Allergy to substance 5 [facility] (2 sources) Propoxyphene; Translations: [propoxyphene napsylate] Drug Allergy 5 [facility] (1 source) metroNIDAZOLE Drug Allergy 5 [facility] Repository (1 source) Penicillins Drug allergy (disorder) 5 [facility] Rep[facility] (1 source) Penicillins Propensity to adverse reactions 7 [facility] Medications Current Medications Medication Drug Class(es) [...] th once daily. L gasseri/B bifidum/B longum (Yogiyo ORAL) (11 sources) take 1 capsule by mouth once daily L gasseri/B bifidum/B longum ([employer] ORAL) Take 1 capsule by mouth once daily. Active take 1 capsule by mouth once coni ly L gasseri/B bifidum/B longum ([employer] ORAL) Take 1 capsule by mouth once daily. 0 Active Comment on above: Take 1 capsule by mo uth once daily. L. Gasseri-B. Bifidum-B Longum ([employer]) 1.5 billion cell capsule (2 sources) Start: 11-12-2024 take 1.5 capsules by mouth once daily as needed L. Gasseri-B. Bifidum-B Longum ([employer]) 1.5 billion cell capsule Active 1 NMA PO DAILY as needed November 12, 2024 9:49am Start: 06-19-2022 End: 11-12-2024 take 1.5 capsules by mouth once daily L. Gasseri-B. Bifidum-B Longum ([employer]) 1.5 billion cell capsule Discontinued 1 NMA [...] 50 PLUS) tab (7 sources) End: 08-27-2024 Multivitamins-[place] als-Lutein (MULTIVITAMIN 50 PLUS) tab Take 1 [...] Test Name Value Interpretation Reference Range Facility [facility] 02-25-2025 CNOV Office Visit (FAMPWS ) -- ROBIN JURADO ([id number]) 1970 M Date Time Provider Department 02/25/25 2:20 PM [facility] During [facility] visit today, we recorded [...] dysphagia, odynophagia. Paroxysmal a fib managed by [facility] cardiology with yearly appointments. States last [...] mouth once daily. L gasseri/B bifidum/B longum ([place]ogi[place] ORAL) Take 1 capsule by mouth once [...] or Tdap) (more content not included)... Normal [facility] Echo Completeon 01-14-2025 Echo Complete [facility] [address] [place] [address] Echo Complete 01/14/25 1016 MR#: [id number] Acct: [id number] Name: ROBIN JURADO Rep #: [id number] : 1970 54 From: Hugo Duran MD Attending Dr: Dr. Hugo Duran MD Status: MARTINEZ TRACEY Ordering Dr: Hugo Duran MD Date: 01/14/25 Location: [facility] Sex: M C Admitted: Reason For Study [...] Dictated: 01/14/25 1016 Date Transcribed: 01/14/25 115 Egg Processing Supervisor: Signed Normal [facility] Echocardiogram study reportO rdered By: Hugo Duran on 01-14-2025 Study report [facility] Cardi[facility] [address] [place] [address] Echo Complete 01/14/25 1016 MR#: [id number] Acct: [id number] Name: ROBIN JURADO Rep #:[id number] : 1970 54 From: Hugo Ferrer Attending [...] Dictated: 01/14/25 1016 Date Transcribed: 01/14/25 1150 Egg Processing Supervisor: Signed [facility] Work Phone: 12 Lead EKG performed by [facility] on 11-12-2024 12 Lead EKG performed by [facility] [address] [place] [address] 12 Lead EKG performed by [facility] 11/12/24 0843 MR#: [id number] Acct: [id number] Name: ROBIN JURADO Rep #: [id number] : 1970 54 From: Hugo Duran MD Attending Dr: Dr. Hugo Duran MD Status: DEP A MB Ordering Dr: Hugo Duran MD Date: 11/12/24 Location: [facility] Sex: M C Admitted: [facility]/12 Lead EKG performed by [facility] ECG Report Interpretation Sinus Rhythm -With rate variation cv = 10.-Left axis -anterior fascicular block. -consider old anterior infarct. ABNORMAL Electronically signed on 11/17/2024 at 10:02 by Hugo Duranwood Software Version 8610 11/17/24 1005 Date Hugo Duran MD CC: Dr. Jose Angel Alexandre MD Date Dictated: 11/12/24842 Date Transcribed: 11/12/24842 Egg Processing Supervisor: [place] Signed Normal [facility] Cardiology Visit Reporton Cardiology Visit Report [facility] [address] [place] [address] OFFICE VISIT Date of Service: 11/12/24 MR#: [id number] Acct: [id number] Name: ROBIN JURADO Rep #: [id number] : 1970 Provider: Dr. 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 Normal [facility] Abdomen/Pelvis WITH Contrast on 09-23-2024 Abdomen/Pelvis WITH Contrast [facility] Imaging Services [address] [place] [address] [id number] Abdomen/Pelvis WITH Contrast MR#: [id number] Acct: [id number] Name: ROBIN JURADO Rep #: [id number] : 1970 M 54 From: Jesse lu MD PCP: Dr. Jose Angel Alexandre MD Status: REG ER Study: Abdomen/Pelvis WITH Contrast Date of Exam: 02/11 Exam# [id number] Ordering Dr: Hitesh Parson DO [id number] STUDY: CT ABDOMEN AND PELVIS WITH CONTRAST [...] Angel Alexandre MD; Dr. Hitesh Parson DO Egg Processing Supervisor: Signed Normal [facility] Absolute neutrophil countOrd ered By: ED PROVIDER on 09-23-2024 Neutrophils (Bld) [#/Vol] 3.5 10*3/uL 2.0-7.7 [facility] Albumin to globulin ratioOrd ered By: ED PROVIDER on 09-23-2024 Albumin/Globulin [Mass ratio] 1.0 {ratio} 0.9-2.4 [facility] Basophil percentageOrdered B y: ED PROVIDER on 09-23-2024 Basophils/100 WBC (Bld) 0.4 % 0-1 [facility] Bilirubin Test strip Ql (U)O rdered By: Hitesh Marinaadi on 09-23-2024 Bilirubin Ql (U) Negative Negative [facility] Bilirubin, totalOrdered By: ED PROVIDER on 09-23-2024 Bilirubin [Mass/Vol] 0.30 mg/dL 0.20-1.00 [facility] Comment on above: For patients on eltr ombopag therapy, use of Dimension [place] TBIL is not recommended. Blood urea nitrogen (BUN)/cr eatinine ratioOrdered By: ED PROVIDER on 09-23-2024 Urea nitrogen/Creatinine [Mass ratio] 12.7 mg/mg 10-20 [facility] CBC W/Diff, Automatedon 12-0 Absolute Lymph 1.56 X10 3/uL Normal 0.83-4.51 [facility] Comment on above: Performed By: #### L 500.4050, L100.0100 #### [facility] [address] [place], [address] Absolute Neut 3.5 X10 3/uL Normal 2.0-7.7 [facility] Comment on above: Performed By: #### L 500.4050, L100.0100 #### [facility] [address] [place], [address] Basophils/100 WBC (Bld) 0.4 % Normal 0-1 [facility] Comment on above: Performed By: #### L 500.4050, L100.0100 #### [facility] [address] [place], [address] Eosinophils/100 WBC (Bld) 2.3 % Normal 0-5 [facility] Comment on above: Performed By: #### L 500.4050, L100.0100 #### [facility] [address] [place], [address] Erythrocyte distribution width (RBC) [Ratio] 12.4 % Normal 11.6-14.6 [facility] Comment on above: Performed By: #### L 500.4050, L100.0100 #### [facility] [address] [place], [address] Hematocrit (Bld) [Volume fraction] 47.8 % Normal 40-54 [facility] Comment on above: Performed By: #### L 500.4050, L100.0100 #### [facility] [address] [place], [address] Hemoglobin (Bld) [Mass/Vol] 15.4 g/dL Normal 13.0-16.5 [facility] Comment on above: Performed By: #### L 500.4050, L100.0100 #### [facility] [address] [place], [address] IG% 0.500 Normal 0.0-0.9 [facility] Comment on above: Result Comment: IG% - Immature Granulocytes (promyelocytes, myelocytes and metamyelocytes) > 1% indicates that a LEFT SHIFT is Present. Performed By: #### L 500.4050, L100.0100 #### [facility] [address] [place], [address] Lymphocytes/100 WBC (Bld) 27.9 % Normal 19-41 [facility] Comment on above: Performed By: #### L 500.4050, L100.0100 #### [facility] [address] [place], [address] MCH (RBC) [Entitic mass] 26.9 pg Low 27.0-32.0 [facility] Comment on above: Performed By: #### L 500.4050, L100.0100 #### [facility] [address] [place], [address] MCHC (RBC) [Mass/Vol] 32.2 g/dL Normal 32-36 [facility] Comment on above: Performed By: #### L 500.4050, L100.0100 #### [facility] [address] [place], [address] MCV (RBC) [Entitic vol] 83.4 fL Normal 80-94 [facility] Comment on above: Performed By: #### L 500.4050, L100.0100 #### [facility] [address] [place], [address] Monocytes/100 WBC (Bld) 6.4 % Normal 0-10 [facility] Comment on above: Performed By: #### L 500.4050, L100.0100 #### [facility] [address] [place], [address] Neutrophils/100 WBC (Bld) 62.5 % Normal 47-70 [facility] Comment on above: Performed By: #### L 500.4050, L100.0100 #### [facility] [address] [place], [address] Nucleated RBC (Bld) [#/Vol] 0 10*3/uL Normal 0-5 [facility] Comment on above: Performed By: #### L 500.4050, L100.0100 #### [facility] [address] [place], [address] Platelet mean volume (Bld) [Entitic vol] 10.1 fL Normal 6.2-12.0 [facility] Comment on above: Performed By: #### L 500.4050, L100.0100 #### [facility] [address] [place], [address] Platelets (Bld) [#/Vol] 227 10*3/uL Normal 150-450 [facility] Comment on above: Performed By: #### L 500.4050, L100.0100 #### [facility] [address] [place], [address] RBC (Bld) [#/Vol] 5.73 10*6/uL Normal 4.6-6.2 [facility] Comment on above: Performed By: #### L 500.4050, L100.0100 #### [facility] [address] [place], [address] RDW SD 37.5 fl Normal 35.1-43.9 [facility] Comment on above: Performed By: #### L 500.4050, L100.0100 #### [facility] [address] [place], [address] WBC (Bld) [#/Vol] 5.6 10*3/uL Normal 4.4-11.0 [facility] Comment on above: Performed By: #### L 500.4050, L100.0100 #### [facility] [address] 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 Kang Inguinal hernia, right [...] mouth once daily. L gasseri/B bifidum/B longum (Yogiyo ORAL) Take 1 capsule by mouth once [...] refusing EMS and will drive self to [facility] ED. Report called to [facility] ER physician. Will f/u on discharge. 2. Decreased appetite - ICD9: 783.0, ICD10: R63.0 See above 3. Nausea - ICD9: 787.02, ICD10: R11.0 See above 4. Change in bowel movement - ICD9: 787.99, ICD10: R19.8 See above 5. BRBPR (bright red blood per rectum) - ICD9: 569.3, ICD10: K62.5 See abov (more content not included)... Normal [facility] Daniele 09-23-2024 CNPN Telephone (FAMPWS) -- ROBIN JURADO ([id number]) 1970 M Date Time Provider Department 09/23/24 [...] once daily. - L gasseri/B bifidum/B longum ([facility] ORAL) Take 1 capsule by mouth [...] Status:Closed by FREDI PICHARDO on 09/23/24 Normal [facility] Carbon dioxide measurementOr dered By: ED PROVIDER on 09-23-2024 CO2 [Moles/Vol] 29.0 mmol/L 21.0-32.0 [facility] Chloride measurementOrdered By: ED PROVIDER on 09-23-2024 Chloride [Moles/Vol] 106 mmol/L 98-107 [facility] Comprehensive Metabolic Prof ilon 09-23-2024 Albumin [Mass/Vol] 3.8 g/dL Normal 3.2-5.0 [facility] Comment on above: Performed By: #### L 500.4050, L100.0100 #### [facility] [address] [place], [address] Albumin/Globulin [Mass ratio] 1.0 {ratio} Normal 0.9-2.4 [facility] Comment on above: Performed By: #### L 500.4050, L100.0100 #### [facility] [address] [place], [address] ALK P 90 U/L Normal 45-117 [facility] Comment on above: Performed By: #### L 500.4050, L100.0100 #### [facility] [address] [place], [address] ALT [Catalytic activity/Vol] 43 U/L Normal 16-61 [facility] Comment on above: Performed By: #### L 500.4050, L100.0100 #### [facility] [address] [place], [address] AST [Catalytic activity/Vol] 16 U/L Normal 15-37 [facility] Comment on above: Performed By: #### L 500.4050, L100.0100 #### [facility] [address] [place], [address] Bilirubin [Mass/Vol] 0.30 mg/dL Normal 0.20-1.00 [facility] Comment on above: Result Comment: For patients on eltrombopag therapy, use of Dimension [place] TBIL is not recommended. Performed By: #### L 500.4050, L100.0100 #### [facility] [address] [place], [address] BUN/CRE 12.7 RATIO Normal 10-20 [facility] Comment on above: Performed By: #### L 500.4050, L100.0100 #### [facility] [address] [place], [address] CA,Total 9.0 mg/dL Normal 8.5-10.1 [facility] Comment on above: Performed By: #### L 500.4050, L100.0100 #### [facility] [address] [place], [address] Chloride [Moles/Vol] 106 mmol/L Normal 98-107 [facility] Comment on above: Performed By: #### L 500.4050, L100.0100 #### [facility] [address] [place], [address] CO2 [Moles/Vol] 29.0 mmol/L Normal 21.0-32.0 [facility] Comment on above: Performed By: #### L 500.4050, L100.0100 #### [facility] [address] [place], [address] Creatinine [Mass/Vol] 0.87 mg/dL Normal 0.70-1.30 [facility] Comment on above: Result Comment: The validity of the calculated GFR GFRAA in patients over 70 years has not been determined. Clinical correlation is essential. Performed By: #### L 500.4050, L100.0100 #### [facility] [address] [place], [address] ECRCL 106.54 ml/min Normal [facility] Comment on above: Performed By: #### L 500.4050, L100.0100 #### [facility] [address] [place], [address] EST GFR - AA 118 mL/min Normal >60 [facility] Comment on above: Result Comment: Afri can [place]ian GFR Calc Performed By: #### L 500.4050, L100.0100 #### [facility] [address] [place], [address] GAP 4 Low 5-15 [facility] Comment on above: Performed By: #### L 500.4050, L100.0100 #### [facility] [address] [place], [address] GFR/1.73 sq M.predicted among non-blacks MDRD (S/P/Bld) [Vol rate/Area] 97 mL/min/{1.73_m2} Normal >60 [facility] Comment on above: Result Comment: Non- GFR Calc Performed By: #### L 500.4050, L100.0100 #### [facility] [address] [place], [address] Globulin (S) [Mass/Vol] 3.7 g/dL Normal 2.2-4.2 [facility] Comment on above: Performed By: #### L 500.4050, L100.0100 #### [facility] [address] [place], [address] Glucose [Mass/Vol] 97 mg/dL Normal 74-106 [facility] Comment on above: Performed By: #### L 500.4050, L100.0100 #### [facility] [address] [place], [address] Potassium [Moles/Vol] 4.3 mmol/L Normal 3.5-5.1 [facility] Comment on above: Performed By: #### L 500.4050, L100.0100 #### [facility] [address] [place], [address] Sodium [Moles/Vol] 139 mmol/L Normal 136-145 [facility] Comment on above: Performed By: #### L 500.4050, L100.0100 #### [facility] [address] [place], [address] T PROT 7.5 g/dL Normal 6.4-8.2 [facility] Comment on above: Performed By: #### L 500.4050, L100.0100 #### [facility] [address] [place], [address] Urea nitrogen [Mass/Vol] 11 mg/dL Normal 7-18 [facility] Comment on above: Performed By: #### L 500.4050, L100.0100 #### [facility] [address] [place], [address] Emergency Department Summary on 09-23-2024 Emergency Department Summary [facility] Medical Records Department [address] [place] [address] Emergency Department Summary 09/23/24 MR#: [id number] Acct: [id number] Name: ROBIN JURADO Rep #: [id number] : 1970 54 From: Hitesh Parson DO [...] adhesions. His initial colectomy was done in [facility] and subsequent surgeries were done in [facility]. [facility] Medical History BPH (benign prostatic hyperplasia) History of ulcerative colitis Nonrheumatic mitral (valve) prolapse Paroxysmal atrial fibrillation Premature ventricular contractions Recurrent intestinal obstruction VSD (ventricular septal defect) Home Medications ???Medication ???Instructions ???Recorded ???Last Taken ???Type Lactobacills gasseri-Bifidobac 1 cap PO DAILY 06/19/22 Unknown History bifidum,longum 1.5 billion cell capsule ([employer]) glucosamine sulfate 2KCl 1,000 mg 2,000 mg [...] AdvReac Vomiting Verified 09/23/24 13:51 Family History Father Hypertension Grandfather Heart disease CVA (cerebral vascular accident) Grandmother CVA (cerebral vascular accident) Surgical History Na's pouch of intestine History of colectomy History of open reduction and internal fixation (ORIF) procedure Social History Smoking Status: Never smoker alcohol [...] Negative for (more content not included)... Normal [facility] Eosinophil percentageOrdered By: ED PROVIDER on 09-23-2024 Eosinophils/100 WBC (Bld) 2.3 % 0-5 [facility] Epithelial cells.squamous LM Ql (Urine sed)Ordered By: Hitesh Parson on 09-23-2024 Epithelial cells.squamous LM.HPF (Urine sed) [#/Area] 0 /[HPF] 0-5 [facility] Erythrocyte distribution wid th ratioOrdered By: ED PROVIDER on 09-23-2024 Erythrocyte distribution width (RBC) [Ratio] 12.4 % 11.6-14.6 [facility] Erythrocyte distribution wid th standard deviationOrdered By: ED PROVIDER on 09-23-2024 Erythrocyte distribution width (RBC) [Entitic vol] 37.5 fL 35.1-43.9 [facility] Estimated glomerular filtrat ion rate (GFR) AmericanOrdered By: ED PROVIDER on 09-23-2024 Estimated GFR (MDRD) Amer 118 mL/min >60 [facility] Comment on above: GFR Calc Estimation of creatinine carlie aranceOrdered By: ED PROVIDER on 09-23-2024 Estimated Creatinine Clearance Calc 106.54 ml/min [facility] Glomerular filtration rate ( GFR) estimationOrdered By: ED PROVIDER on 09-23-2024 Estimated GFR (MDRD) Non-Af Amer 97 mL/min >60 [facility] Comment on above: Non- GFR Calc Glucose Ql (U)Ordered By: Re jyotsna Parson on 09-23-2024 Urine Glucose (UA) Normal mg/dl Normal [facility] Glucose measurementOrdered B y: ED PROVIDER on 09-23-2024 Glucose [Mass/Vol] 97 mg/dL 74-106 [facility] Hematocrit Auto (Bld) [Volum e fraction]Ordered By: ED PROVIDER on 09-23-2024 Hematocrit (Bld) [Volume fraction] 47.8 % 40-54 [facility] Hemoglobin measurementOrdere d By: ED PROVIDER on 09-23-2024 Hemoglobin (Bld) [Mass/Vol] 15.4 g/dL 13.0-16.5 [facility] Immature granulocytes/100 WB C Auto (Bld)Ordered By: ED PROVIDER on 09-23-2024 Immature granulocytes/100 WBC (Bld) 0.500 % 0.0-0.9 [facility] Comment on above: IG% - Immature Granu locytes (promyelocytes, myelocytes and metamyelocytes) > 1% indicates that a LEFT SHIFT is Present. Ketones Test strip Ql (U)Ord ered By: iHtesh Parson on 09-23-2024 Ketones Ql (U) Negative Negative [facility] - Chemistry and C hemistry - challengeOrdered By: ED PROVIDER on 09-23-2024 AST [Catalytic activity/Vol] 16 U/L 15-37 [facility] Lactic Acidon 09-23-2024 Lactate [Moles/Vol] 1.0 mmol/L Normal 0.4-1.9 [facility] Comment on above: Order Comment: Y Performed By: #### L 503.6005 #### [facility] [address] [place], [address] Lactic acid measurementOrder ed By: Hitesh Parson on 09-23-2024 Lactate [Moles/Vol] 1.0 mmol/L 0.4-2.0 [facility] Lymphocytes Auto (Unsp spec) [#/Vol]Ordered By: ED PROVIDER on 09-23-2024 Lymphocytes (Bld) [#/Vol] 1.56 10*3/uL 0.83-4.51 [facility] Lymphocytes/100 WBC Auto (Un sp spec)Ordered By: ED PROVIDER on 09-23-2024 Lymphocytes/100 WBC (Bld) 27.9 % 19-41 [facility] MCV (mean corpuscular volume ) determinationOrdered By: ED PROVIDER on 09-23-2024 MCV (RBC) [Entitic vol] 83.4 fL 80-94 [facility] Mean corpuscular hemoglobin (MCH) determinationOrdered By: ED PROVIDER on 09-23-2024 MCH (RBC) [Entitic mass] 26.9 pg Low 27.0-32.0 [facility] Mean corpuscular hemoglobin concentration (MCHC) determinationOrdered By: ED PROVIDER on 09-23-2024 MCHC (RBC) [Mass/Vol] 32.2 g/dL 32-36 [facility] Mean platelet volume determi nationOrdered By: ED PROVIDER on 09-23-2024 Platelet mean volume (Bld) [Entitic vol] 10.1 fL 6.2-12.0 [facility] Microscopic analysis of urin e for red blood cells (RBC)Ordered By: Hitesh Parson on 09-23-2024 Urine RBC 0 SEEN /hpf 0-5 [facility] Monocyte percentageOrdered B y: ED PROVIDER on 09-23-2024 Monocytes/100 WBC (Bld) 6.4 % 0-10 [facility] Mucus LM Ql (Urine sed)Order ed By: Hitesh Parson on 09-23-2024 Mucus Ql (Urine sed) 2+ /hpf [facility] Neutrophil percentageOrdered By: ED PROVIDER on 09-23-2024 Neutrophils/100 WBC (Bld) 62.5 % 47-70 [facility] Nitrite Test strip Ql (U)Ord ered By: Hitesh Parson on 09-23-2024 Nitrite Ql (U) Negative Negative [facility] Nucleated red blood cell per centageOrdered By: ED PROVIDER on 09-23-2024 Nucleated RBC/100 WBC (Bld) [Ratio] 0 % 0-5 [facility] Platelet countOrdered By: ED PROVIDER on 09-23-2024 Platelets (Bld) [#/Vol] 227 10*3/uL 150-450 [facility] Potassium measurementOrdered By: ED PROVIDER on 09-23-2024 Potassium [Moles/Vol] 4.3 mmol/L 3.5-5.1 [facility] Protein Test strip Ql (U)Ord ered By: Hitesh Parson on 09-23-2024 Protein Ql (U) 15 mg/dl High Negative [facility] RBC Auto (Bld) [#/Vol]Ordere d By: ED PROVIDER on 09-23-2024 RBC (Bld) [#/Vol] 5.73 10*6/uL 4.6-6.2 [facility] Serum anion gap measurementO rdered By: ED PROVIDER on 09-23-2024 Anion gap [Moles/Vol] 4 mmol/L Low 5-15 [facility] Serum globulin measurementOr dered By: ED PROVIDER on 09-23-2024 Globulin (S) [Mass/Vol] 3.7 g/dL 2.2-4.2 [facility] Serum or plasma alanine brown otransferase (ALT) measurementOrdered By: ED PROVIDER on 09-23-2024 ALT [Catalytic activity/Vol] 43 U/L 16-61 [facility] Serum or plasma albumin aide urement (mass/volume)Ordered By: ED PROVIDER on 09-23-2024 Albumin [Mass/Vol] 3.8 g/dL 3.2-5.0 [facility] Serum or plasma alkaline bam sphatase measurementOrdered By: ED PROVIDER on 09-23-2024 ALP [Catalytic activity/Vol] 90 U/L 45-117 [facility] Serum or plasma calcium aide urement (mass/volume)Ordered By: ED PROVIDER on 09-23-2024 Calcium [Mass/Vol] 9.0 mg/dL 8.5-10.1 [facility] Serum or plasma creatinine m easurement (mass/volume)Ordered By: ED PROVIDER on 09-23-2024 Creatinine [Mass/Vol] 0.87 mg/dL 0.70-1.30 [facility] Comment on above: The validity of the calculated GFR & GFRAA in patients over 70 years has not been determined. Clinical correlation is essential. Serum or plasma urea nitroge n measurement (mass/volume)Ordered By: ED PROVIDER on 09-23-2024 Urea nitrogen [Mass/Vol] 11 mg/dL 7-18 [facility] Sodium levelOrdered By: ED P ROVIDER on 09-23-2024 Sodium [Moles/Vol] 139 mmol/L 136-145 [facility] Total proteinOrdered By: ED PROVIDER on 09-23-2024 Protein [Mass/Vol] 7.5 g/dL 6.4-8.2 [facility] Urinalysis, Completeon 09-23 BACTERIA 1+ /hpf Normal None Seen [facility] Comment on above: Order Comment: CLEAN CATCH Performed By: #### L 400.0001 #### [facility] [address] [place], [address] EPI,SQUAMOUS 0-5 SEEN Normal 0-5 [facility] Comment on above: Order Comment: CLEAN CATCH Performed By: #### L 400.0001 #### [facility] [address] [place], [address] Mucus Ql (Urine sed) 2+ /hpf Normal [facility] Comment on above: Order Comment: CLEAN CATCH Performed By: #### L 400.0001 #### [facility] [address] [place], [address] WBC 0-5 SEEN Normal 0-5 [facility] Comment on above: Order Comment: CLEAN CATCH Performed By: #### L 400.0001 #### [facility] [address] [place], [address] RBC 0 SEEN Normal 0-5 [facility] Comment on above: Order Comment: CLEAN CATCH Performed By: #### L 400.0001 #### [facility] [address] [place], [place], [id number] Urine blood detectionOrdered By: Hitesh Parson on 09-23-2024 Urine Occult Blood Negative Negative [facility] Urine clarityOrdered By: Bre Parson on 09-23-2024 Clarity (U) Clear Clear [facility] Urine color determinationOrd ered By: Hitesh Parson on 09-23-2024 Color (U) Yellow Yellow [facility] Urine leukocyte esterase det ection by dipstickOrdered By: Hitesh Parson on 09-23-2024 Leukocyte esterase Test strip Ql (U) Negative Negative [facility] Urine pHOrdered By: Hitesh Berry gur on 09-23-2024 pH (U) 6.0 [pH] 5.0 - 8.0 [facility] Urine sediment bacteria coun t by microscopy (number/high power field)Ordered By: Hitesh Parson on 09-23-2024 Bacteria LM.HPF (Urine sed) [#/Area] 1 /[HPF] None Seen [facility] Urine specific gravity measu rementOrdered By: Hitesh Parson on 09-23-2024 Specific gravity (U) [Rel density] 1.020 1.002-1.030 [facility] Urobilinogen Ql (U)Ordered B y: Hitesh Parson on 09-23-2024 Urine Urobilinogen Normal mg/dl Normal [facility] White blood cell (WBC) count Ordered By: ED PROVIDER on 09-23-2024 WBC (Bld) [#/Vol] 5.6 10*3/uL 4.4-11.0 [facility] White blood cell countOrdere d By: Hitesh Parson on 09-23-2024 Urine WBC 0-5 SEEN /hpf 0-5 [facility] CNPNon 08-31-2024 CNPN Telephone (FAMPWS) -- RHIANNONROBIN Hawkins ([id number]) 1970 M Date Time Provider Department 08/31[facility] your visit today, we recorded the following information about you: Lillian Martinez MA 08/31/2024 10:23 AM Signed ----- Message from Aixa Alexandre MD sent at 08/31/2024 7:15 AM EST ----- Normal labs aside from high triglycerides. Recommend low cholesterol diet and exercise. Recheck in 1 year. Lillian Martinez MA 08/31/2024 10:24 AM Signed Pt notified of results via [employer]. Lillian Martinez Ma Allergies As of Date: [...] once daily. - L gasseri/B bifidum/B longum ([employer] ORAL) Take 1 capsule by mouth once daily. 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 HbA1c (Bld) [Mass fraction] 5.1 % 4.3 - 5.6 % [facility] Comment on above: [place] Diabetes As sociation guidelines indicate that patients with HgbA1c in the range 5.7-6.4% are at increased risk for development of diabetes, and intervention by lifestyle modification may be beneficial. HgbA1c greater or equal to 6.5% is considered diagnostic of diabetes. [facility] CBC W Auto Differential pane l (Bld)on 08-27-2024 Basophils (Bld) [#/Vol] 0.03 10*3/uL [facility] Basophils/100 WBC (Bld) 0.5 % [facility] Differential cell count method Nom (Bld) Auto [facility] Eosinophils (Bld) [#/Vol] 0.13 10*3/uL [facility] Eosinophils/100 WBC (Bld) 2.3 % [facility] Erythrocyte distribution width (RBC) [Ratio] 12.5 % 11.5 - 15.0 % [facility] Hematocrit (Bld) [Volume fraction] 44.9 % 39.0 - 51.0 % [facility] Hemoglobin (Bld) [Mass/Vol] 14.7 g/dL 13.0 - 17.0 g/dL [facility] Immature granulocytes (Bld) [#/Vol] [facility] Immature granulocytes/100 WBC (Bld) 0.2 % [facility] Lymphocytes (Bld) [#/Vol] 1.54 10*3/uL [facility] Lymphocytes/100 WBC (Bld) 27.8 % [facility] MCH (RBC) [Entitic mass] 27.2 pg 26.0 - 34.0 pg [facility] MCHC (RBC) [Mass/Vol] 32.7 g/dL 30.5 - 36.0 g/dL [facility] MCV (RBC) [Entitic vol] 83.1 fL 80.0 - 100.0 fL [facility] Monocytes (Bld) [#/Vol] 0.32 10*3/uL [facility] Monocytes/100 WBC (Bld) 5.8 % [facility] Neutrophils (Bld) [#/Vol] 3.51 10*3/uL [facility] Neutrophils/100 WBC (Bld) 63.4 % [facility] Nucleated RBC (Bld) [#/Vol] [facility] Nucleated RBC/100 WBC (Bld) [Ratio] 0.0 % /100 WBC [facility] Platelet mean volume (Bld) [Entitic vol] 10.2 fL 9.0 - 12.7 fL [facility] Platelets (Bld) [#/Vol] 222 10*3/uL [facility] RBC (Bld) [#/Vol] 5.40 10*6/uL 4.20 - 6.0 0 m/uL [facility] WBC (Bld) [#/Vol] 5.54 10*3/uL [facility] Basophils (Bld) [#/Vol] 0.03 10*3/uL Normal <0.11 [facility] Comment on above: Order Comment: Speci men Type: BLOOD SPECIMENOrdering Facility: [facility] Address: [address] [place] [address] Performed By: #### 5 7021-8 ####[facility] LABCLIA [id number] [place] [address] [place] Basophils/100 WBC (Bld) 0.5 % Normal [facility] Comment on above: Order Comment: Speci men Type: BLOOD SPECIMENOrdering Facility: [facility] Address: [address] [place] [address] Performed By: #### 5 7021-8 ####[facility] LABCLIA [id number] [place] [address] [place] Differential cell count method Nom (Bld) Auto Normal [facility] Comment on above: Order Comment: Speci men Type: BLOOD SPECIMENOrdering Facility: [facility] Address: [address] [place] [address] Performed By: #### 5 7021-8 ####[facility] LABCLIA [id number] [place] [address] [place] Eosinophils (Bld) [#/Vol] 0.13 10*3/uL Normal <0.46 [facility] Comment on above: Order Comment: Speci men Type: BLOOD SPECIMENOrdering Facility: [facility] Address: [address] [place] [address] Performed By: #### 5 7021-8 ####[facility] LABCLIA [id number] [place] [address] [place] Eosinophils/100 WBC (Bld) 2.3 % Normal [facility] Comment on above: Order Comment: Speci men Type: BLOOD SPECIMENOrdering Facility: [facility] Address: [address] [place] [address] Performed By: #### 5 7021-8 ####[facility] LABCLIA [id number] [place] [address] [place] Erythrocyte distribution width (RBC) [Ratio] 12.5 % Normal 11.5-15.0 [facility] Comment on above: Order Comment: Speci men Type: BLOOD SPECIMENOrdering Facility: [facility] Address: [address] [place] [address] Performed By: #### 5 7021-8 ####[facility] LABCLIA [id number] [place] [address] [place] Hematocrit (Bld) [Volume fraction] 44.9 % Normal 39.0-51.0 [facility] Comment on above: Order Comment: Speci men Type: BLOOD SPECIMENOrdering Facility: [facility] Address: [address] [place] [address] Performed By: #### 5 7021-8 ####[facility] LABCLIA [id number] [place] [address] [place] Hemoglobin (Bld) [Mass/Vol] 14.7 g/dL Normal 13.0-17.0 [facility] Comment on above: Order Comment: Speci men Type: BLOOD SPECIMENOrdering Facility: [facility] Address: [address] [place] [address] Performed By: #### 5 7021-8 ####[facility] LABCLIA [id number] [place] [address] [place] Immature granulocytes (Bld) [#/Vol] 10*3/uL Normal <0.10 [facility] Comment on above: Order Comment: Speci men Type: BLOOD SPECIMENOrdering Facility: [facility] Address: [address] [place] [address] Performed By: #### 5 7021-8 ####[facility] LABCLIA [id number] [place] [address] [place] Immature granulocytes/100 WBC (Bld) 0.2 % Normal [facility] Comment on above: Order Comment: Speci men Type: BLOOD SPECIMENOrdering Facility: [facility] Address: [address] [place] [address] Performed By: #### 5 7021-8 ####[facility] LABCLIA [id number] [place] [address] [place] Lymphocytes (Bld) [#/Vol] 1.54 10*3/uL Normal 1.00-4.00 [facility] Comment on above: Order Comment: Speci men Type: BLOOD SPECIMENOrdering Facility: [facility] Address: [address] [place] [address] Performed By: #### 5 7021-8 ####[facility] LABCLIA [id number] [place] [address] [place] Lymphocytes/100 WBC (Bld) 27.8 % Normal [facility] Comment on above: Order Comment: Speci men Type: BLOOD SPECIMENOrdering Facility: [facility] Address: [address] [place] [address] Performed By: #### 5 7021-8 ####[facility] LABCLIA [id number] [place] [address] [place] MCH (RBC) [Entitic mass] 27.2 pg Normal 26.0-34.0 [facility] Comment on above: Order Comment: Speci men Type: BLOOD SPECIMENOrdering Facility: [facility] Address: [address] [place] [address] Performed By: #### 5 7021-8 ####[facility] LABCLIA [id number] [place] [address] [place] MCHC (RBC) [Mass/Vol] 32.7 g/dL Normal 30.5-36.0 [facility] Comment on above: Order Comment: Speci men Type: BLOOD SPECIMENOrdering Facility: [facility] Address: [address] [place] [address] Performed By: #### 5 7021-8 ####[facility] LABCLIA [id number] [place] [address] [place] MCV (RBC) [Entitic vol] 83.1 fL Normal 80.0-100.0 [facility] Comment on above: Order Comment: Speci men Type: BLOOD SPECIMENOrdering Facility: [facility] Address: [address] [place] [address] Performed By: #### 5 7021-8 ####[facility] LABCLIA [id number] [place] [address] [place] Monocytes (Bld) [#/Vol] 0.32 10*3/uL Normal <0.87 [facility] Comment on above: Order Comment: Speci men Type: BLOOD SPECIMENOrdering Facility: [facility] Address: [address] [place] [address] Performed By: #### 5 7021-8 ####[facility] LABCLIA [id number] [place] [address] [place] Monocytes/100 WBC (Bld) 5.8 % Normal [facility] Comment on above: Order Comment: Speci men Type: BLOOD SPECIMENOrdering Facility: [facility] Address: [address] [place] [address] Performed By: #### 5 7021-8 ####[facility] LABCLIA [id number] [place] [address] [place] Neutrophils (Bld) [#/Vol] 3.51 10*3/uL Normal 1.45-7.50 [facility] Comment on above: Order Comment: Speci men Type: BLOOD SPECIMENOrdering Facility: [facility] Address: [address] [place] [address] Performed By: #### 5 7021-8 ####[facility] LABCLIA [id number] [place] [address] [place] Neutrophils/100 WBC (Bld) 63.4 % Normal [facility] Comment on above: Order Comment: Speci men Type: BLOOD SPECIMENOrdering Facility: [facility] Address: [address] [place] [address] Performed By: #### 5 7021-8 ####[facility] LABCLIA [id number] [place] [address] [place] Nucleated RBC (Bld) [#/Vol] 10*3/uL Normal <0.01 [facility] Comment on above: Order Comment: Speci men Type: BLOOD SPECIMENOrdering Facility: [facility] Address: [address] [place] [address] Performed By: #### 5 7021-8 ####[facility] LABIA [id number] [place] [address] [place] Nucleated RBC/100 WBC (Bld) [Ratio] 0.0 /100 WBC Normal [facility] Comment on above: Order Comment: Speci men Type: BLOOD SPECIMENOrdering Facility: [facility] Address: [address] [place] [address] Performed By: #### 5 7021-8 ####[facility] LABIA [id number] [place] [address] [place] Platelet mean volume (Bld) [Entitic vol] 10.2 fL Normal 9.0-12.7 [facility] Comment on above: Order Comment: Speci men Type: BLOOD SPECIMENOrdering Facility: [facility] Address: [address] [place] [address] Performed By: #### 5 7021-8 ####[facility] [id number] [place] [address] [place] Platelets (Bld) [#/Vol] 222 10*3/uL Normal 150-400 [facility] Comment on above: Order Comment: Speci men Type: BLOOD SPECIMENOrdering Facility: [facility] Address: [address] [place] [address] Performed By: #### 5 7021-8 ####[facility] LABIA [id number] [place] [address] [place] RBC (Bld) [#/Vol] 5.40 10*6/uL Normal 4.20-6.00 [facility] Comment on above: Order Comment: Speci men Type: BLOOD SPECIMENOrdering Facility: [facility] Address: [address] [place] [address] Performed By: #### 5 7021-8 ####[facility] LABCLIA [id number] [place] [id number] [place] WBC (Bld) [#/Vol] 5.54 10*3/uL Normal 3.70-11.00 [facility] Comment on above: Order Comment: Speci men Type: BLOOD SPECIMENOrdering Facility: [facility] Address: [address] [place] [address] Performed By: #### 5 7021-8 ####[facility] LABCLIA [id number] [place] [id number] [place] CNCOon 08-27-2024 CNCO Letter Text Normal [facility] CNOVon 08-27-2024 CNOV Office Visit (FAMPWS ) -- ROBIN JURADO ([id number]) 1970 M Date Time Provider Department 08/27/24 2:00 PM [facility] During your visit today, we recorded [...] abdominal pain. Paroxysmal a fib managed by [facility] cardiology with yearly appointments. States last [...] (gastroesophageal reflux disease) Na's pouch of intestine ([facility]) J pouch, Dr. Kang Inguinal hernia, right [...] on File Prior to Visit Medication Sig Janceakvizpka-Lzcdhvzt-Oki ein (MULTIVITAMIN 50 PLUS) tab Take 1 tablet by mouth once daily. Glucosamine Sulfate (GLUCOSAMINE) 500 mg tab Take 1 tablet by mouth once daily. L gasseri/B bifidum/B longum ([facility]) Take 1 capsule by mouth [...] recent p (more content not included)... Normal [facility] Comprehensive metabolic 2000 panelon 08-27-2024 Albumin [Mass/Vol] 4.3 g/dL Normal 3.9-4.9 [facility] Comment on above: Order Comment: Speci men Type: BLOOD SPECIMENOrdering Facility: [facility] Address: [address] [place] [address] Performed By: #### 2 4323-8, LIPNF ####[facility] LABCLIA [id number] [place] [address] [place] ALP [Catalytic activity/Vol] 80 U/L Normal 38-113 [facility] Comment on above: Order Comment: Speci men Type: BLOOD SPECIMENOrdering Facility: [facility] Address: [address] [place] [address] Performed By: #### 2 4323-8, LIPNF ####[facility] LABCLIA [id number] [place] [address] [place] ALT [Catalytic activity/Vol] 26 U/L Normal 10-54 [facility] Comment on above: Order Comment: Speci men Type: BLOOD SPECIMENOrdering Facility: [facility] Address: [address] [place] [address] Performed By: #### 2 4323-8, LIPNF ####[facility] LABCLIA [id number] [place] [address] [place] Anion gap [Moles/Vol] 15 mmol/L Normal 8-15 [facility] Comment on above: Order Comment: Speci men Type: BLOOD SPECIMENOrdering Facility: [facility] Address: [address] [place] [address] Performed By: #### 2 4323-8, LIPNF ####[facility] LABCLIA [id number] [place] [address] [place] AST [Catalytic activity/Vol] 21 U/L Normal 14-40 [facility] Comment on above: Order Comment: Speci men Type: BLOOD SPECIMENOrdering Facility: [facility] Address: [address] [place] [address] Performed By: #### 2 4323-8, LIPNF ####[facility] LABCLIA [id number] [place] [address] [place] Bilirubin [Mass/Vol] 0.2 mg/dL Normal 0.2-1.3 [facility] Comment on above: Order Comment: Speci men Type: BLOOD SPECIMENOrdering Facility: [facility] Address: [address] [place] [address] Performed By: #### 2 4323-8, LIPNF ####[facility] LABCLIA [id number] [place] [address] [place] Calcium [Mass/Vol] 9.2 mg/dL Normal 8.5-10.2 [facility] Comment on above: Order Comment: Speci men Type: BLOOD SPECIMENOrdering Facility: [facility] Address: [address] [place] [address] Performed By: #### 2 4323-8, LIPNF ####[facility] LABCLIA [id number] [place] [address] [place] Chloride [Moles/Vol] 103 mmol/L Normal 98-107 [facility] Comment on above: Order Comment: Speci men Type: BLOOD SPECIMENOrdering Facility: [facility] Address: [address] [place] [address] Performed By: #### 2 4323-8, LIPNF ####[facility] LABCLIA [id number] [place] [address] [place] CO2 [Moles/Vol] 23 mmol/L Normal 22-30 [facility] Comment on above: Order Comment: Speci men Type: BLOOD SPECIMENOrdering Facility: [facility] Address: [address] [place] [address] Performed By: #### 2 4323-8, LIPNF ####[facility] LABCLIA [id number] [place] [address] [place] Creatinine [Mass/Vol] 1.07 mg/dL Normal 0.73-1.22 [facility] Comment on above: Order Comment: Speci men Type: BLOOD SPECIMENOrdering Facility: [facility] Address: [address] [place] [address] Performed By: #### 2 4323-8, LIPNF ####[facility] LABCLIA [id number] [place] [address] [place] Creatinine and Glomerular filtration rate.predicted panel (S/P/Bld) 82 mL/min/1.73m??? Normal >=60 [facility] Comment on above: Order Comment: Speci men Type: BLOOD SPECIMENOrdering Facility: [facility] Address: [address] [place] [address] Result Comment: Payal mated Glomerular Filtration Rate [...] GFR. Performed By: #### 2 4323-8, LIPNF ####[facility] [facility] LABCL[facility] [id number] [place] [address] [place] Glucose [Mass/Vol] 101 mg/dL High 74-99 [facility] Comment on above: Order Comment: Curtis wang Type: BLOOD SPECIMENOrdering Facility: [facility] Address: [address] [place] [address] Result Comment: The [place] Diabetes Association (ADA) provides guidance for cutoff [...] Standards of Medical Care in Diabetes 2016, [place] Diabetes Association. Diabetes Care. 2016.39(Suppl 1). Performed By: #### 2 4323-8, LIPNF ####[facility] LABIA [id number] [place] [address] [place] Potassium [Moles/Vol] 4.1 mmol/L Normal 3.7-5.1 [facility] Comment on above: Order Comment: Curtis wang Type: BLOOD SPECIMENOrdering Facility: [facility] Address: [address] [id number] Performed By: #### 2 4323-8, LIPNF ####[facility] LABIA [id number] [place] [address] [place] Protein [Mass/Vol] 6.8 g/dL Normal 6.3-8.0 [facility] Comment on above: Order Comment: Speci men Type: BLOOD SPECIMENOrdering Facility: [facility] Address: [address] [place] [address] Performed By: #### 2 4323-8, LIPNF ####[facility] LABCLIA [id number] [place] [address] [place] Sodium [Moles/Vol] 141 mmol/L Normal 136-144 [facility] Comment on above: Order Comment: Speci men Type: BLOOD SPECIMENOrdering Facility: [facility] Address: [address] [place] [address] Performed By: #### 2 4323-8, LIPNF ####[facility] LABCLIA [id number] [place] [address] [place] Urea nitrogen [Mass/Vol] 11 mg/dL Normal 9-24 [facility] Comment on above: Order Comment: Speci men Type: BLOOD SPECIMENOrdering Facility: [facility] Address: [address] [place] [address] Performed By: #### 2 4323-8, LIPNF ####[facility] LABCLIA [id number] [place] [address] [place] HbA1c (Bld)on 08-27-2024 Average glucose Estimated from glycated hemoglobin (Bld) [Mass/Vol] 100 mg/dL Normal [facility] Comment on above: Order Comment: Speci men Type: BLOOD SPECIMENOrdering Facility: [facility] Address: [address] [place] [address] Result Comment: eAG: (Estimated average glucose) is a calculated value from HgbA1c and is telemarketing sales representative of the average blood glucose level in the last 2-3 month period. Performed By: #### 5 5454-3 ####[facility] LABCLIA [id number] [place] [address] [place] HbA1c (Bld) [Mass fraction] 5.1 % Normal 4.3-5.6 [facility] Comment on above: Order Comment: Curtis felipe Type: BLOOD SPECIMENOrdering Facility: [facility] Address: [address] [place] [address] Result Comment: [place]la [place] Diabetes Association guidelines indicate that patients with HgbA1c in the range 5.7-6.4% are at increased risk for development of diabetes, and intervention by lifestyle modification may be beneficial. HgbA1c greater or equal to 6.5% is considered diagnostic of diabetes. Performed By: #### 5 5454-3 ####[facility]CLIA [id number] [address] OF [facility] LIPID PANEL, NONFASTINGon Cholesterol [Mass/Vol] 163 mg/dL Normal <200 [facility] Comment on above: Order Comment: Curtis wang Type: BLOOD SPECIMENOrdering Facility: [facility] Address: [address] [place] [address] Result Comment: <200 mg/dL, Desirable 200-239 mg/dL, Borderline high >239 mg/dL, High Performed By: #### 2 4323-8, LIPNF ####[facility] LABCLIA [id number] [place] [address] [place] HDL CHOLESTEROL, NF 50 mg/dL Normal >39 [facility] Comment on above: Order Comment: Curtis wang Type: BLOOD SPECIMENOrdering Facility: [facility] Address: [address] [place] [address] Result Comment: 40-5 9 mg/dL, Acceptable >59 mg/dL, High: Negative risk factor for coronary heart disease <40 mg/dL, Low: Positive risk factor for coronary heart disease Performed By: #### 2 4323-8, LIPNF ####[facility] LABCLIA [id number] [place] [address] [place] LDL CHOLESTEROL, NF 78 mg/dL Normal <100 [facility] Comment on above: Order Comment: Speci men Type: BLOOD SPECIMENOrdering Facility: [facility] Address: [address] [place] [address] Result Comment: <100 mg/dL, Optimal 100-129 mg/dL, Near optimal/above optimal 130-159 mg/dL, Borderline high 160-189 mg/dL, High >189 mg/dL, Very high Secondary prevention optimal LDL Cholesterol levels are recommended to be < 70 mg/dL Performed By: #### 2 4323-8, LIPNF ####[facility]CLIA [id number] [place] [address] [place] LDL/HDL RATIO, NF 1.56 mg/dL Normal <2.54 [facility] Comment on above: Order Comment: Speci men Type: BLOOD SPECIMENOrdering Facility: [facility] Address: [address] [place] [address] Result Comment: Refe rence: 1. National Cholesterol Education Program ATP III Guideline At-A-Glance Quick Desk Reference: National Heart, Lung, and Blood [place]. National Institutes of Health. 2001: NIH Publication No. 01-3305. 2. An International Atherosclerosis Society position paper: global recommendations for the management of dyslipidemia: executive summary, Atherosclerosis. 2014: 232(2):410-413. Performed By: #### 2 4323-8, LIPNF ####[facility] LABCLIA [id number] [address] [place] NON HDL CHOL, NF 113 mg/dL Normal <130 [facility] Comment on above: Order Comment: Cornelioi felipe Type: BLOOD SPECIMENOrdering Facility: [facility] Address: [address] [place] [address] Result Comment: <130 mg/dL, Optimal 130-159 mg/dL, Near optimal/above optimal 160-189 mg/dL, Borderline high 190-219 mg/dL, High >219 mg/dL, Very high Secondary prevention optimal non HDL Cholesterol levels are recommended to be <100 mg/dL Performed By: #### 2 4323-8, LIPNF ####[facility] LABCLIA [id number] [place] [address] [place] T CHOL/HDL RATIO NF 3.26 mg/dL Normal <5.10 [facility] Comment on above: Order Comment: Speci men Type: BLOOD SPECIMENOrdering Facility: [facility] Address: [address] [place] [address] Performed By: #### 2 4323-8, LIPNF ####[facility] LABCLIA [id number] [place] [address] [place] TRIGLYCERIDES, NF 173 mg/dL High <150 [facility] Comment on above: Order Comment: Speci men Type: BLOOD SPECIMENOrdering Facility: [facility] Address: [address] [place] [address] Result Comment: <150 mg/dL, Normal 150-199 mg/dL, Borderline high 200-499 mg/dL, High >499 mg/dL, Very high Performed By: #### 2 4323-8, LIPNF ####[facility] LABCLIA [id number] [place] [address] [place] VLDL CHOLESTEROL, NF 35 mg/dL High <30 [facility] Comment on above: Order Comment: Speci men Type: BLOOD SPECIMENOrdering Facility: [facility] Address: [address] [place] [address] Performed By: #### 2 4323-8, LIPNF ####[facility] LABCLIA [id number] [place] [address] [place] PSA/PROSTATE SPECIFIC ANTIGE N SCREENINGon 08-27-2024 Prostate specific Ag [Mass/Vol] 1.85 ng/mL Normal <2.60 [facility] Comment on above: Order Comment: Speci men Type: BLOOD SPECIMENOrdering Facility: [facility] Address: [address] [place] [address] Result Comment: Tota l PSA test methodology used is the Electrochemiluminescence Immunoassay by [employer]. Total PSA values by differing methodologies cannot be interchanged. Performed By: #### P SAS1 ####[facility] LABCLIA [id number] [facility] [id number] [address] [place] Urinalysis complete panel (U )on 08-27-2024 Bacteria LM.HPF (Urine sed) [#/Area] Negative Negative /HPF [facility] Bilirubin Ql (U) Negative Negative [facility] Clarity (Unsp spec) Clear Clear [facility] Color (U) Yellow Yellow [facility] Epithelial cells LM.HPF (Urine sed) [#/Area] None Seen /HPF [facility] Glucose Test strip (U) [Mass/Vol] Negative Negative [facility] Hemoglobin Ql (U) Negative Negative [facility] Hyaline casts (Urine sed) [#/Area] 0 /[LPF] 0 /LPF [facility] Ketones Ql (U) Negative Negative [facility] Leukocyte esterase Test strip Ql (U) Negative Negative [facility] Nitrite Ql (U) Negative Negative [facility] pH (U) 5.5 [pH] NINF - 8.5 [facility] Protein (U) [Mass/Vol] Negative Negative Cl [facility] RBC LM.HPF (Urine sed) [#/Area] 0-2 /HPF 0-2 /HPF [facility] Specific gravity (U) [Rel density] 1.023 1.005 - 1.030 [facility] Urobilinogen Ql (U) 0.2 EU/dL 0.2-1.0 EU/dL [facility] WBC LM.HPF (Urine sed) [#/Area] 0-5 /HPF 0-5 /HPF [facility] This test was jalyn servin and its performance characteristics determined by [facility]'s César JOumar [facility] Pathology and Laboratory Medicine [place] (RT-PLMI). It has not been cleared or approved by the FDA. RT-PLFL is regulated under CLIA as qualified to perform high-complexity testing. This test is used for clinical purposes. It should not be regarded as investigational or for research. [facility] Bacteria LM.HPF (Urine sed) [#/Area] Negative Normal Negative [facility] Comment on above: Order Comment: Speci men Type: URINE SPECIMENOrdering Facility: [facility] Address: [address] [place] [address] Performed By: #### 2 4356-8 ####[facility] LABCLIA [id number] [place] [address] [place] Bilirubin Ql (U) Negative Normal Negative [facility] Comment on above: Order Comment: Speci men Type: URINE SPECIMENOrdering Facility: [facility] Address: [address] [place] [address] Performed By: #### 2 4356-8 ####[facility] LABCLIA [id number] [place] [address] [place] Clarity (Unsp spec) Clear Normal Clear [facility] Comment on above: Order Comment: Speci men Type: URINE SPECIMENOrdering Facility: [facility] Address: [address] [place] [address] Performed By: #### 2 4356-8 ####[facility] LABCLIA [id number] [place] [address] [place] [facility] Color (U) Yellow Normal Yellow [facility] Comment on above: Order Comment: Speci men Type: URINE SPECIMENOrdering Facility: [facility] Address: [address] [place] [address] Performed By: #### 2 4356-8 ####[facility] LABCLIA [id number] [place] [address] [place] Epithelial cells LM.HPF (Urine sed) [#/Area] None Seen Normal [facility] Comment on above: Order Comment: Speci men Type: URINE SPECIMENOrdering Facility: [facility] Address: [address] [place] [address] Performed By: #### 2 4356-8 ####[facility] LABCLIA [id number] [place] [address] [place] Glucose Test strip (U) [Mass/Vol] Negative Normal Negative [facility] Comment on above: Order Comment: Speci men Type: URINE SPECIMENOrdering Facility: [facility] Address: [address] [place] [address] Performed By: #### 2 4356-8 ####[facility] LABCLIA [id number] [place] [address] [place] Hemoglobin Ql (U) Negative Normal Negative [facility] Comment on above: Order Comment: Speci men Type: URINE SPECIMENOrdering Facility: [facility] Address: [address] [place] [address] Performed By: #### 2 4356-8 ####[facility] LABCLIA [id number] [place] [address] [place] Hyaline casts (Urine sed) [#/Area] 0 /[LPF] Normal 0 /LPF [facility] Comment on above: Order Comment: Speci men Type: URINE SPECIMENOrdering Facility: [facility] Address: [address] [place] [address] Performed By: #### 2 4356-8 ####[facility] LABCLIA [id number] [place] [address] [place] Ketones Ql (U) Negative Normal Negative [facility] Comment on above: Order Comment: Speci men Type: URINE SPECIMENOrdering Facility: [facility] Address: [address] [place] [address] Performed By: #### 2 4356-8 ####[facility] LABCLIA [id number] [place] [address] [place] Leukocyte esterase Test strip Ql (U) Negative Normal Negative [facility] Comment on above: Order Comment: Speci men Type: URINE SPECIMENOrdering Facility: [facility] Address: [address] [place] [address] Performed By: #### 2 4356-8 ####[facility] LABCLIA [id number] [place] [address] [place] Nitrite Ql (U) Negative Normal Negative [facility] Comment on above: Order Comment: Speci men Type: URINE SPECIMENOrdering Facility: [facility] Address: [address] [place] [address] Performed By: #### 2 4356-8 ####[facility] LABCLIA [id number] [place] [address] [place] pH (U) 5.5 [pH] Normal <8.5 [facility] Comment on above: Order Comment: Speci men Type: URINE SPECIMENOrdering Facility: [facility] Address: [address] [place] [address] Performed By: #### 2 4356-8 ####[facility] LABIA [id number] [place] [address] [place] Protein (U) [Mass/Vol] Negative Normal Negative Cl [facility] Comment on above: Order Comment: Speci men Type: URINE SPECIMENOrdering Facility: [facility] Address: [address] [place] [address] Performed By: #### 2 4356-8 ####[facility] LABIA [id number] [place] [address] [place] RBC LM.HPF (Urine sed) [#/Area] 0-2 /HPF Normal 0-2 /HPF [facility] Comment on above: Order Comment: Speci men Type: URINE SPECIMENOrdering Facility: [facility] Address: [address] [place] [address] Performed By: #### 2 4356-8 ####[facility] LABCLIA [id number] [place] [address] [place] Specific gravity (U) [Rel density] 1.023 Normal 1.005-1.030 [facility] Comment on above: Order Comment: Speci men Type: URINE SPECIMENOrdering Facility: [facility] Address: [address] [place] [address] Performed By: #### 2 4356-8 ####[facility] LABCLIA [id number] [place] [address] [place] Urobilinogen Ql (U) 0.2 EU/dL Normal 0.2-1.0 EU/dL [facility] Comment on above: Order Comment: Speci men Type: URINE SPECIMENOrdering Facility: [facility] Address: [address] [place] [address] Performed By: #### 2 4356-8 ####[facility] LABIA [id number] [place] [address] [place] WBC LM.HPF (Urine sed) [#/Area] 0-5 /HPF Normal 0-5 /HPF [facility] Comment on above: Order Comment: Speci men Type: URINE SPECIMENOrdering Facility: [facility] Address: [address] [place] [address] Performed By: #### 2 4356-8 ####[facility] LABIA [id number] [address] [place] CNPNon 05-25-2024 CNPN Telephone (FAMWS) -- ROBIN JURADO ([id number]) 1970 M Date Time Provider Department 05/25/24 [...] Results [95] Prescriptions as of 05/25/2024 - Nofpbmkcztdac-Toloyhwa-Kqu ein (MULTIVITAMIN 50 PLUS) tab Take 1 tablet by mouth once daily. - Glucosamine Sulfate (GLUCOSAMINE) 500 mg tab Take 1 tablet by mouth once daily. - L gasseri/B bifidum/B longum (Yogiyo ORAL) Take 1 capsule by mouth once daily. 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 Egg Processing Supervisor: PSCB Transcribe Date/Time: May 24 2024 7:22P Dictated by : JAMES WATSON DO This examination was interpreted and the report reviewed and electronically signed by: JAMES WATSON DO on May 24 2024 7:25PM [facility] DIVISION OF RADIOLOGY * * *Final Report* [...] Normal cardiomediastinal silhouette. DIVISION OF RADIOLOGY Provider, [facility] - 05/24/2024 * * *Final Report* * [...] silhouette. IMPRESSION IMPRESSION: No acute radiographic abnormality. Egg Processing Supervisor: ANALI Transcribe Date/Time: May 24 2024 7:22P Dictated by : JAMES WATSON DO This examination was interpreted and the report reviewed and electronically signed by: JAMES WATSON DO on May 24 2024 7:25PM [facility] XR Ribs - right Views and Ch est PAOrdered By: Ccf Provider on 05-24-2024 [facility] CNOVon 05-19-2024 CNOV Office Visit (FAMPWS ) -- ROBIN JURADO ([id number]) 1970 M Date Time Provider Department 05/19/24 3:40 PM [facility] today, we recorded [...] Paroxysmal.seeing Dr. 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 Kang Inguinal hernia, right [...] on File Prior to Visit Medication Sig Txfydglmmxcvw-Urcnoeoo-Kws ein (MULTIVITAMIN 50 PLUS) tab Take 1 tablet by mouth once daily. Glucosamine Sulfate (GLUCOSAMINE) 500 mg tab Take 1 tablet by mouth once daily. L gasseri/B bifidum/B longum (Yogiyo ORAL) Take 1 capsule by mouth once [...] Date Reviewed: (more content not included)... Normal [facility] XR RIB/CHST 3V AP RIB/OBL/CH ST Kian [...] cardiomediastinal silhouette. IMPRESSION: No acute radiographic abnormality. Egg Processing Supervisor: PSCB Transcribe Date/Time: May 24 2024 7:22P Dictated by : JAMES WATSON DO This examination was interpreted and the report reviewed and electronically signed by: JAMES WATSON DO on May 24 2024 7:25PM EST [id number] Normal [facility] XR Ribs - right Views and Ch est PAon 05-19-2024 Radiology Study observation (narrative) [facility] Vital Signs Date Time Vital Sign Value Performing Clinician Faci lity 02-25-2025 14:22-0400 Body mass index (BMI) [Ratio] 23.86 kg/m2 Aixa Alexandre MD Work Phone: [facility] 02-25-2025 14:22-0400 Body weight 81.65 kg Aixa Alexandre MD Work Phone: [facility] 02-25-2025 14:22-0400 Diastolic blood pressure 74 mm[Hg] Aixa Alexandre MD Work Phone: [facility] 02-25-2025 14:22-0400 Heart rate 75 /min Aixa Alexandre MD Work Phone: [facility] 02-25-2025 14:22-0400 Respiratory rate 16 /min Aixa Alexandre MD Work Phone: [facility] 02-25-2025 14:22-0400 SaO2% (BldA) [Mass fraction] 99 % Aixa Alexandre MD Work Phone: [facility] 02-25-2025 14:22-0400 Systolic blood pressure 110 mm[Hg] Aixa Alexandre MD Work Phone: [facility] 11-12-2024 08:43-0500 Body height 182.[address] Jose Angel Alexandre MD Work Phone: [facility] 11-12-2024 08:43-0500 Body mass index (BMI) [Ratio] 24.3 kg/m2 Dr. Jose Angel Alexandre MD Work Phone: [facility] 11-12-2024 08:43-0500 Body weight 81.[address] Jose Angel Alexandre MD Work Phone: 1(485)222-605856 [place] [address] 11-12-2024 08:43-0500 Diastolic blood pressure 83 mm[Hg] Dr. Jose Angel Alexandre MD Work Phone: 1(510)418-476856 [place] [address] 11-12-2024 08:43-0500 Heart rate 70 /min Dr. Jose Angel Alexandre MD Work Phone: 3(666)936-692456 [place] [address] 11-12-2024 08:43-0500 Respiratory rate 16 /min Dr. Jose Angel Alexandre MD Work Phone: 3(198)547-797956 [place] [address] 11-12-2024 08:43-0500 Systolic blood pressure 117 mm[Hg] Dr. Jose Angel Alexandre MD Work Phone: 2(120)380-248556 [place] [address] 09-23-2024 18:47-0500 Body temperature 97.5 [degF] Dr. Jose Angel Alexandre MD Work Phone: 7(762)241-143756 [place] [address] 09-23-2024 18:47-0500 Heart rate 59 /min Dr. Jose Angel Alexandre MD Work Phone: 1(222)285-140556 [place] [address] 09-23-2024 18:47-0500 Respiratory rate 18 /min Dr. Jose Angel Alexandre MD Work Phone: 9(221)060-374856 [place] [address] 09-23-2024 18:47-0500 SaO2% (BldA) [Mass fraction] 97 % Dr. Jose Angel Alexandre MD Work Phone: 4(317)394-183356 [place] [address] 09-23-2024 13:51-0500 Body mass index (BMI) [Ratio] 24.7 kg/m2 Dr. Jose Angel Alexandre MD Work Phone: 6(373)988-995256 [place] [address] 09-23-2024 13:51-0500 Body weight 82.[address] Jose Angel Alexandre MD Work Phone: 8(129)718-516356 [place] [address] 09-23-2024 13:51-0500 Diastolic blood pressure 80 mm[Hg] Dr. Jose Angel Alexandre MD Work Phone: [facility] 09-23-2024 13:51-0500 Systolic blood pressure 133 mm[Hg] Dr. Jose Angel Alexandre MD Work Phone: [facility] 09-23-2024 13:14-0500 Body temperature 98.01 [degF] Aixa Alexandre MD Work Phone: [facility] 09-23-2024 13:14-0500 Diastolic blood pressure 70 mm[Hg] Aixa Alexandre MD Work Phone: [facility] 09-23-2024 13:14-0500 Heart rate 75 /min Aixa Alexandre MD Work Phone: [facility] 09-23-2024 13:14-0500 Respiratory rate 16 /min Aixa Alexandre MD Work Phone: [facility] 09-23-2024 13:14-0500 SaO2% (BldA) [Mass fraction] 99 % Aixa Alexandre MD Work Phone: [facility] 09-23-2024 13:14-0500 Systolic blood pressure 130 mm[Hg] Aixa Alexandre MD Work Phone: [facility] 08-27-2024 13:43-0500 Body mass index (BMI) [Ratio] 23.7 kg/m2 Aixa Alexandre MD Work Phone: [facility] 08-27-2024 13:43-0500 Body weight 81.1 kg Aixa Alexandre MD Work Phone: [facility] 08-27-2024 13:43-0500 Diastolic blood pressure 72 mm[Hg] Aixa Alexandre MD Work Phone: [facility] 08-27-2024 13:43-0500 Heart rate 72 /min Aixa Alexandre MD Work Phone: [facility] 08-27-2024 13:43-0500 Respiratory rate 16 /min Aixa Alexandre MD Work Phone: [facility] 08-27-2024 13:43-0500 SaO2% (BldA) [Mass fraction] 99 % Aixa Alexandre MD Work Phone: [facility] 08-27-2024 13:43-0500 Systolic blood pressure 110 mm[Hg] Aixa Alexandre MD Work Phone: [facility] 05-19-2024 15:26-0400 Body mass index (BMI) [Ratio] 23.78 kg/m2 Aixa Alexandre MD Work Phone: [facility] 05-19-2024 15:26-0400 Body temperature 98.49 [degF] Aixa Alexandre MD Work Phone: [facility] 05-19-2024 15:26-0400 Body weight 81.38 kg Aixa Alexandre MD Work Phone: [facility] 05-19-2024 15:26-0400 Diastolic blood pressure 74 mm[Hg] Aixa Alexandre MD Work Phone: [facility] 05-19-2024 15:26-0400 Heart rate 64 /min Aixa Alexandre MD Work Phone: [facility] 05-19-2024 15:26-0400 Respiratory rate 16 /min Aixa Alexandre MD Work Phone: [facility] 05-19-2024 15:26-0400 SaO2% (BldA) [Mass fraction] 96 % Aixa Alexandre MD Work Phone: [facility] 05-19-2024 15:26-0400 Systolic blood pressure 110 mm[Hg] Aixa Alexandre MD Work Phone: [facility] 12-21-2022 09:52-0500 Body weight 80.92 kg Aixa Alexandre MD Work Phone: [facility] 12-21-2022 09:52-0500 Diastolic blood pressure 62 mm[Hg] Aixa Alexandre MD Work Phone: [facility] 12-21-2022 09:52-0500 Heart rate 74 /min Aixa Alexandre MD Work Phone: [facility] 12-21-2022 09:52-0500 Respiratory rate 16 /min Aixa Alexandre MD Work Phone: [facility] 12-21-2022 09:52-0500 SaO2% (BldA) [Mass fraction] 98 % Aixa Alexandre MD Work Phone: [facility] 12-21-2022 09:52-0500 Systolic blood pressure 106 mm[Hg] Aixa Alexandre MD Work Phone: [facility] Encounters Encounter Date Encounter Type Care Provider Facility Start: 02-25-2025 End: 02-25-2025 Patient encounter procedure Aixa Alexandre MD Work Phone: [facility] Comment on above: Gastroesophageal ref lux disease, unspecified whether esophagitis present (Primary Dx); Atrial fibrillation, unspecified type (HCC); Na's pouch of intestine (HCC) Start: 02-25-2025 End: 02-25-2025 ambulatory AIXA ALEXANDRE Facility:[facility] Start: 01-14-2025 Non-patient / Non-visit Dr. Shanta BRADFORD -[facility] Start: 01-14-2025 End: 01-14-[address] Jose Angel Alexandre MD Work Phone: [facility] Work Phone: Start: 01-14-2025 End: 01-14-[address] Hugo Duran MD -Cardiovascular Services Work Phone: Start: 01-14-2025 End: 01-14-2025 ambulatory Hugo Duran Facility:[facility] Start: 11-12-2024 End: 11-12-[address] Hugo Duran MD -[facility] Work Phone: Start: 11-12-2024 End: 11-12-2024 ambulatory Hugo Duran Facility:[facility] Start: 09-23-2024 End: 09-23-2024 Telephone encounter Aixa Alexandre MD Work Phone: [facility] Comment on above: Future Appointment Start: 09-23-2024 End: 09-23-2024 Emergency department patient visit Dr. Hitesh Parson DO -Emergency Department Work Phone: Start: 09-23-2024 End: 09-23-2024 Patient encounter procedure Aixa Alexandre MD Work Phone: [facility] Comment on above: Epigastric pain (Jessica monico Dx); Decreased appetite; Nausea; Change in bowel movement; BRBPR (bright red blood per rectum) Start: 09-23-2024 End: 09-23-2024 ambulatory AIXA ALEXANDRE Facility:[facility] Start: 08-31-2024 End: 08-31-2024 Telephone encounter Aixa Alexandre MD Work Phone: [facility] Comment on above: Results Start: 08-27-2024 End: 08-27-2024 ambulatory AIXA ALEXANDRE Facility:[facility] Start: 08-27-2024 End: 08-27-2024 Patient encounter procedure Aixa Alexandre MD Work Phone: [facility] Comment on above: Annual physical exam (Primary Dx); Atrial fibrillation, unspecified type (HCC); Dysuria; Enlarged prostate; Gastroesophageal reflux disease, unspecified whether esophagitis present; Esophageal dysphagia; History of ulcerative colitis; Na's pouch of intestine (HCC); Encounter for immunization; Screening for prostate cancer Start: 05-25-2024 Telephone encounter Jose Angel Alexandre MD Work Phone: [facility] [place] Comment on above: Results Start: 05-19-2024 End: 05-19-2024 Subsequent hospital visit by physician Silvana [facility] Work Phone: Radiology Comment on above: Rib pain on right si de [R07.81] Start: 05-19-2024 End: 05-19-2024 Patient encounter procedure Aixa Alexandre MD Work Phone: [facility] Comment on above: Rib pain on right si de (Primary Dx) Start: 05-19-2024 End: 05-19-2024 ambulatory AIXA ALEXANDRE Facility:[facility] Start: 12-21-2022 End: 12-21-2022 Patient encounter procedure Aixa Alexandre MD Work Phone: [facility] Comment on above: Testicle lump (Prima ry Dx); Inguinal hernia, right; Drug-induced erectile dysfunction Start: 09-07-2022 Refill Aixa Alexandre MD Work Phone: [facility] Comment on above: Refill Request Start: 03-28-2022 Telephone encounter Carmlela cornell APRN.NURSE COMPANION Work Phone: [facility] Comment on above: Results Procedures Date Procedure Procedure Detail Performing Clinician Start: 11-12-2024 Evaluation of diagnostic study results Dr. Jose Angel Alexandre MD Work Phone: Start: 09-23-2024 Computed tomography of abdomen and pelvis with contrast Dr. Jose Angel Alexandre MD Work Phone: Start: 08-27-2024 [employer] COVID-19 VACCINE AGE 12+ YR (COMIRNATY) Aixa Alexandre MD Work Phone: Start: 08-27-2024 Lipid 1996 panel - Serum or Plasma Aixa Alexandre MD Work Phone: Start: 05-19-2024 Radex ribs uni w/posteroant ch minimum 3 views Aixa Alexandre MD Work Phone: Start: 03-22-2022 Adult depression screening assessment Carmella Gomes SOFTWARE PROJECT ENGINEER.NURSE COMPANION Work Phone: Start: 03-22-2022 Lipid 1996 panel - Serum or Plasma Aixa Alexandre MD Work Phone: H/O: colostomy Na's pouch of intestine Carmella Gomes SOFTWARE PROJECT ENGINEER.NURSE COMPANION Work Phone: H/O: colostomy Na's pouch of intestine (HCC) Aixa Alexandre MD Work Phone: H/O: colostomy Na's pouch of intestine (HCC) Aixa Alexandre MD Work Phone: Plan of Treatment Date Care Activity Detail Author Start: 08-27-2029 Lipid panel Lipid Screening [facility] Start: 08-27-2029 Prostate specific antigen measurement Prostate Cancer Screening Discussion [facility] Start: 08-27-2027 Diabetes Screening Diabetes Screenin g [facility] Start: 03-22-2027 Lipid panel Lipid Screening [facility] Start: 03-22-2027 LIPID SCREEN LIPID SCREEN [facility] Start: 06-21-2026 Urine microalbumin profile [facility] Start: 02-25-2026 Pneumococcal Vaccine : 50+ (1 of 1 - PCV) Pneumococcal Vaccine: 50+ (1 of 1 - PCV) [facility] Comment on above: Postponed from 01/19 (Declined at this time) Start: 09-02-2025 End: 09-02-2025 Patient encounter procedure 09/02/2025 2:00 PM EST Office Visit [facility] [address] [place] [id number] Aixa Alexandre MD [address] [place] [id number] annual physical [facility] Comment on above: annual physical Start: 08-27-2025 Shingrix Vaccine (1 of 2) Shingrix Vaccine (1 of 2) [facility] Comment on above: Postponed from 01/19 (Declined at this time) Start: 03-22-2025 DIABETES SCREEN DIABETES SCREEN [facility] Start: 03-22-2025 Diabetes Screening Diabetes Screenin g [facility] Start: 02-25-2025 End: 02-25-2025 Patient encounter procedure 02/25/2025 2:20 PM EDT Office Visit [facility] [address] [place] [id number] Aixa Alexandre MD [address] [place] [id number] 6 month follow y [facility] Comment on above: 6 month follow y Start: 09-23-2024 [facility] Start: 08-27-2024 End: 11-26-2024 Comprehensive metabolic 2000 panel - Serum or Plasma [facility] Work Phone: Comment on above: Expected: 08/27/2024 , Expires: 11/26/2024 Start: 08-27-2024 End: 11-26-2024 LIPID PANEL, NONFASTING [facility] Comment on above: Expected: 08/27/2024 , Expires: 11/26/2024 Start: 08-27-2024 End: 08-27-2024 Patient encounter procedure 08/27/2024 2:00 PM EST Office Visit [facility] [address] [place] [address] Aixa Alexandre MD [address] [place], [place] [phone] annual physical [facility] [place] Comment on above: annual physical Start: 08-27-2024 End: 11-26-2024 PSA/PROSTATE SPECIFIC ANTIGEN SCREENING [facility] Comment on above: Expected: 08/27/2024 , Expires: 11/26/2024 Start: 06-21-2024 Influenza vaccination Influenza Vacc ine (#1) [facility] Start: 03-22-2023 Adult depression screening assessment DEPRESSION SCREENING [facility] Start: 03-22-2023 HEPATITIS C SCREENING HEPATITIS C [facility] Comment on above: Postponed from 01/19 (Declined at this time) Start: 03-22-2023 HIV SCREENING HIV SCREENING [facility] Comment on above: Postponed from 01/19 (Declined at this time) Start: 10-21-2022 DEPRESSION ASSESSMENT DEPRESSION ASS ESSMENT [facility] Start: 06-21-2022 Influenza vaccination INFLUENZA (#1) [facility] Start: 05-17-2022 COVID-19 VACCINE (5 - Booster for Pfizer series) COVID-19 VACCINE (5 - Booster for Pfizer series) [facility] Start: 10-21-2021 DEPRESSION ASSESSMENT DEPRESSION ASS ESSMENT [facility] Start: 01-20-2020 SHINGRIX VACCINE (1 of 2) SHINGRIX VACCINE (1 of 2) [facility] Start: 2015 COLOGUARD (FIT-DNA) COLOGUARD (FIT-D NA) [facility] Start: 2015 Colonoscopy COLONOSCOPY [facility] Start: 2015 COLORECTAL CANCER SCREENING COLORECTAL CANCER SCREENING [facility] Start: [address] COLONOGRAPHY [facility] Start: 2015 FECAL OCCULT BLOOD FECAL OCCULT BLOO D [facility] Start: 2015 Screening for malign ant neoplasm of colon [facility] Start: 2015 SIGMOIDOSCOPY SIGMOIDOSCOPY [facility] Start: 1989 Hepatitis B Vaccine (1 of 3 - 19+ 3-dose series) Hepatitis B Vaccine (1 of 3 - 19+ 3-dose series) [facility] Start: 01-20-1988 Anxiety Screening Anxiety Screening [facility] Start: 01-20-1988 Depression Screening Depression Scre ening [facility] Start: 01-20-1988 Hepatitis C screening Hepatitis C Sc reening [facility] Start: 01-20-1988 HIV screening HIV Screening [facility] Start: 1970 HEPATITIS B (1 of 3 - 3-dose series) HEPATITIS B (1 of 3 - 3-dose series) [facility] Patient Education ED Abdominal P ain Unkn Cause Male... [facility] Work Phone: Patient referral [facility] Work Phone: End: 06-18-2025 XR Ribs - right Views and Chest PA XR RIBS/CHEST 3V AP RIB/OBLS/CXR RIGHT Radiology Routine Rib pain on right side 1 Occurrences starting 05/19/2024 until 06/18/2025 [facility] Work Phone: Comment on above: 1 Occurrences starti ng 05/19/2024 until 06/18/2025 XR Ribs - right View s and Chest PA XR RIBS/CHEST 3V AP RIB/OBLS/CXR RIGHT Radiology Routine Rib pain on right side 05/19/2024 4:12 PM EDT [facility] Immunizations Immunization Date Immunization Notes Care Provider Dakota brunner 08-27-2024 COVID-19 vaccine, ag e 12+ yr ([employer]) Aixa Alexandre MD Work Phone: [facility] 08-27-2024 influenza, seasonal, injectable Aixa Alexandre MD Work Phone: [facility] 08-17-2023 influenza, injectabl e, quadrivalent, preservative free Aixa Alexandre MD Work Phone: [facility] 08-17-2023 influenza virus vaccine, unspecified formulation Aixa Alexandre MD Work Phone: [facility] 03-22-2022 COVID-19 vaccine, ag e 12+ yr ([facility]) Carmella Podlogar SOFTWARE PROJECT ENGINEER.NURSE COMPANION Work Phone: [facility] 09-29-2021 influenza, injectabl e, quadrivalent, preservative free Aixa Alexandre MD Work Phone: [facility] 01-26-2021 Covid (Pfizer) Dr. Jori Alexandre MD Work Phone: [facility] 01-05-2021 Covid (Pfizer) Dr. Jori Alexandre MD Work Phone: [facility] 10-03-2019 Influenza, injectabl e, Madin [place] Canine Kidney, preservative free, quadrivalent Aixa Alexandre MD Work Phone: [facility] 09-17-2018 Influenza, injectabl e, Madin [place] Canine Kidney, preservative free, quadrivalent Aixa Alexandre MD Work Phone: [facility] 08-08-2017 influenza, injectabl e, quadrivalent, contains preservative Carmella Podlogar SOFTWARE PROJECT ENGINEER.NURSE COMPANION Work Phone: [facility] 06-21-2016 tetanus toxoid, reduced diphtheria toxoid, and acellular pertussis vaccine, adsorbed Carmella Podlogar SOFTWARE PROJECT ENGINEER.NURSE COMPANION Work Phone: [facility] Payers Date Payer Category Payer Unknown [id number] 2024 Self-pay 2012 [facility] PPO OOS [id number] 2012 Unknown [employer] CARD PPO OOS [id number] 2012-Present [phone] [address] [place] [address] PPO [id number] 2012 Unknown [employer]M BLUE CARD PPO OOS [id number] 2012-Present [phone] [place] [address] PPO [id number] 2012 Unknown [id number] Unknown [id number] Unknown [id number] Unknown [id number] Unknown [id number] Social History Date Type Detail Facility Start: 05-02-2015 End: 12-21-2022 Tobacco smoking status NHIS Never smoked tobacco [facility] Work Phone: Start: 03-22-2022 End: 05-19-2024 Alcohol intake Current non-drinker of alcohol (finding) [facility] Start: 03-22-2022 End: 12-18-2022 History SDOH Alcohol Frequency 1 [facility] Start: 03-22-2022 History SDOH Alcohol Std Drinks 98 [facility] Start: 03-22-2022 End: 12-18-2022 History SDOH Social Connections Phone 2 [facility] Start: 03-22-2022 End: 12-18-2022 History SDOH Social Connections Buddhist 3 [facility] Start: 03-22-2022 End: 12-18-2022 History SDOH Physical Activity DPW 5 [facility] Start: 1970 Sex Assigned At Male [facility] Start: 03-12-2022 End: 03-22-2022 Exposure to SARS-CoV-2 (event) Not sure [facility] Start: 05-02-2015 End: 12-21-2022 Tobacco use and exposure Smokeless tobacco non-user [facility] Start: 12-18-2022 History SDOH Alcohol Std Drinks 0 [facility] Start: 12-18-2022 History SDOH Physical Activity DPW 4 [facility] Start: 05-19-2024 End: 08-27-2024 History of Social function [facility] Start: 05-19-2024 End: 08-27-2024 [facility] Yellow Pagesities [facility] Has the [place], or [employer] cc. threatened to shut off services in your home in past 12Mo No [facility] Do you belong to any clubs or organizations such as faith groups, unions, fraternal or athletic groups, or school groups? Yes [facility] Are you now , , , , never or living with a partner? [facility] How often to you hav e a drink containing alcohol? Monthly or less [facility] How many standard dr inks containing alcohol do you have on a typical day? 1 or 2 [facility] How often do you hav e 6 or more drinks on 1 occasion? Never [facility] How hard is it for y ou to pay for the very basics like food, housing, medical care, and heating Not hard at all [facility] Do you feel stress - tense, restless, nervous, or anxious, or unable to sleep at night because your mind is troubled all the time - these days [OSQ] To some extent [facility] (I/We) worried chaka er (my/our) food would run out before (I/we) got money to buy more. Never true [facility] Start: 03-20-2022 Gender identity Identifies as male gender (finding) [facility] Start: 03-20-2022 Sexual orientation Heterosexual (finding) [facility] Start: 08-27-2024 Alcoholic beverage intake Current drinker of alcohol (finding) [facility] Start: 08-27-2024 Alcohol Comment rare [facility] Start: 06-05-2016 None None [facility] Start: 06-05-2016 Spouse/ Significant Other Spouse/ Significant Other [facility] Start: 01-18-2025 Sex Male (finding) [facility] Functional Status Date Assessment Result Facility 05-02-2015 Are you deaf, or do you have serious difficulty hearing Yes 05/02/2015 10:34 AM Lizet Walker MA Yes [facility] 05-02-2015 Are you blind, or do you have serious difficulty seeing, even when wearing glasses No 05/02/2015 10:34 AM Lizet Walker MA No [facility] 05-02-2015 Do you have serious difficulty walking or climbing stairs No 05/02/2015 10:34 AM Lizet Walker MA No [facility] 05-02-2015 Do you have difficul ty dressing or bathing No 05/02/2015 10:34 AM Lizet Walker MA No [facility] 05-02-2015 Because of a physica l, mental, or emotional condition, do you have difficulty doing errands alone such as visiting a physician's office or shopping No 05/02/2015 10:34 AM Lizet Walker MA No [facility] Mental Status Date Assessment Result Facility 05-02-2015 Because of a physica l, mental, or emotional condition, do you have serious difficulty concentrating, remembering, or making decisions No 05/02/2015 10:34 AM Lizet Walker MA No [facility] Clinical Notes 03-28-2022 to 02-25-2025 Patient Aixa Germain MD - 02/25/2025 2:25 PM EDT Note Date & Type Note Facility 02-25-2025 Instructions Aixa Alexandre MD - 02/25/2025 2:41 PM EDT Please schedule a follow up appointment with colorectal surgery for a repeat pouchoscopy and possible upper scope. documented in this encounter [facility] 02-25-2025 Note HNO ID: [id number] Author: AIXA ALEXANDRE MD Service: ? Author [...] dysphagia, odynophagia. Paroxysmal a fib managed by [facility] cardiology with yearly appointments. States last [...] mouth once daily. L gasseri/B bifidum/B longum ([place] ORAL) Take 1 capsule by mouth once [...] C Screening Discontinued (more content not included)... [facility] 02-25-2025 History of Present illness Narrative Chief [...] Also notes that he stopped omeprazole around [facility] and is still getting heartburn. Feels like he has more energy. Tried a home remedy for heartburn with probiotics which caused diarrhea. Has been taking antacids at bedtime and then 2-3 times per week. Would like to restart the Omeprazole and will call if fatigue returns. Denies dysphagia, odynophagia. Paroxysmal a fib managed by [facility] cardiology with yearly appointments. States last [...] mouth once daily. L gasseri/B bifidum/B longum ([place] ORAL) Take 1 capsule by mouth once [...] Abs Lymph 1.00 - 4.00 k/uL 1.54 [place]% % 5.8 Abs [place] <0.87 k/uL 0.32 [place]% % 2.3 Abs [...] Aixa Alexandre MD documented in this encounter [facility] 11-12-2024 Evaluation note Diagnosis Onset Date Resolution Nonrheumatic mitral (valve) prolapse chronic November 12 025 8:42am Paroxysmal atrial fibrillation chronic November 12 8:42am [facility] Work Phone: 1(278) 867-795112-04-2024 NoteHNO ID: [id number] Author: AIXA ALEXANDRE MD Service: ? Author [...] mouth once daily. L gasseri/B bifidum/B longum ([place] ORAL) Take 1 capsule by mouth once [...] refusing EMS and will drive self to [facility] ED. Report called to [facility] ER physician. Will f/u on discharge. 2. Decreased appetite - ICD9: 783.0, ICD10: R63.0 See above 3. Nausea - ICD9: 787.02, ICD10: R11.0 See above 4. Change in bowel movement - ICD9: 787.99, ICD10: R19.8 See above 5. BRBPR (bright red blood per rectum) - ICD9: 569.3, ICD10: K62.5 See above. Aixa Alexandre [facility]12-04-2024 History of Present illness Narrative* [...] mouth once daily. L gasseri/B bifidum/B longum ([place] ORAL) Take 1 capsule by mouth once [...] refusing EMS and will drive self to [facility] ED. Report called to [facility] ER physician. Will f/uon discharge. 2. Decreased appetite - ICD9: 783.0, ICD10: R63.0 See above 3. Nausea - ICD9: 787.02, ICD10: R11.0 See above 4. Change in bowel movement - ICD9: 787.99, ICD10: R19.8 See above 5. BRBPR (bright red blood per rectum) - ICD9: 569.3, ICD10: K62.5 See above. Aixa Alexandre MD [facility] Telephone encounter Note * Telephone Encounter [...] today 09-23-24 with provider/team. Fredi Pichardo LPN [facility]12-04-2024 Miscellaneous Notes* Telephone Encounter - Fredi [...] provider/team. Fredi Pichardo LPN [facility] Telephone encounter Note * Telephone Encounter - Lillian Martinez MA - 08/31/2024 10:23 AM EST Pt notified of results via [employer]. Lillian Martinez Ma [facility]11-11-2024 Telephone encounter Note* Telephone Encounter - Lillian Martinez MA - 08/31/2024 10:23 AM EST ----- Message from Aixa Alexandre MD sent at 08/31/2024 7:15 AM EST ----- Normal labs aside from high triglycerides. Recommend low cholesterol diet and exercise. Recheck in 1 year. [facility]11-11-2024 Miscellaneous Notes* Telephone Encounter - Lillian Martinez MA - 08/31/2024 10:23 AM EST Pt notified of results via [employer]. Lillian Martinez Ma * Telephone Encounter - Lillian Martinez MA - 08/31/2024 10:23 AM EST ----- Message from Aixa Alexandre MD sent at 08/31/2024 7:15 AM EST ----- Normal labs aside from high triglycerides. Recommend low cholesterol diet and exercise. Recheck in 1 year. [facility]-2024 NoteHNO ID: [id number] Author: AIXA ALEXANDRE MD Service: ? Author [...] abdominal pain. Paroxysmal a fib managed by [facility] cardiology with yearly appointments. States last [...] (gastroesophageal reflux disease) Na's pouch of intestine ([facility]) J pouchDr. Kang Inguinal hernia, right Mitral [...] on File Prior to Visit Medication Sig Sbyksquzyguge-Omkgpvuh-Rtpbnt (MULTIVITAMIN 50 PLUS) tab Take 1 tablet by mouth once daily. Glucosamine Sulfate (GLUCOSAMINE) 500 mg tab Take 1 tablet by mouth once daily. L gasseri/B bifidum/B longum ([place] ORAL) Take 1 capsule by mouth once [...] seizures or tremors EXAM (more content not included)...[facility]11-07-2024 History of Present illness Narrative* Aixa Alexandre [...] abdominal pain. Paroxysmal a fib managed by [facility] cardiology with yearly appointments. States last [...] on File Prior to Visit Medication Sig Obbnbrqndfhji-Hkzfthvd-Knrado (MULTIVITAMIN 50 PLUS) tab Take 1 tablet by mouth once daily. Glucosamine Sulfate (GLUCOSAMINE) 500 mg tab Take 1 tablet by mouth once daily. L gasseri/B bifidum/B longum ([place] ORAL) Take 1 capsule by mouth once [...] 6MO-64YR, TRIVALENT (AFLURIA, FLULAVAL, FLUVIRIN, FLUZONE) - [employer] COVID-19 VACCINE AGE 12+ YR (COMIRNATY) 10. Screening for prostate cancer - ICD9: V76.44, ICD10: Z12.5 - PSA/PROSTATE SPECIFIC ANTIGEN SCREENING Aixa Alexandre MD [facility] Miscellaneous Notes* Telephone Encounter - Marily Sanchez LPN - 05/25/2024 9:19 AM EDT Detailed VM left on secure VM for patient. Advised patient to return call if he had any questions. Marily Sanchez LPN * Telephone Encounter - Marily Sanchez LPN - 05/25/2024 9:18 AM EDT ----- Message from Aixa Alexandre MD sent at 05/25/2024 7:02 AM EDT ----- Normal xray of the ribs. Continue treatment as discussed in office. [facility] Telephone encounter Note * Telephone Encounter - Marily Sanchez LPN - 05/25/2024 9:19 AM EDT Detailed VM left on secure VM for patient. Advised patient to return call if he had any questions. Marily Sanchez LPN [facility]08-05-[facility]24 Telephone encounter Note* Telephone Encounter - Marily Sanchez LPN - 05/25/2024 9:18 AM EDT ----- Message from Aixa Alexandre MD sent at 05/25/2024 7:02 AM EDT ----- Normal xray of the ribs. Continue treatment as discussed in office. [facility]07-30-[facility] History of Present illness Narrative* Iglesia [...] PATIENT PRESENTS WITH AN IMPLANTABLE OR ATTACHED SUPERVISOR FABRICATION: No RADIOLOGY DEPARTMENT: General X-ray: Exam(s) Completed: Rib X-Ray: Right PERIPHERAL IV DATA: Not applicable SIGNED BY: RT Brad(R) May 19, 2024 4:00 PM documented in this encounterMer[facility]07-30-2024 NoteHNO ID: [id number] Author: IGLESIA BHAGAT RT(R) Service: Radiology Author [...] PATIENT PRESENTS WITH AN IMPLANTABLE OR ATTACHED SUPERVISOR FABRICATION: No RADIOLOGY DEPARTMENT: General X-ray: Exam(s) Completed: Rib X-Ray: Right PERIPHERAL IV DATA: Not applicable SIGNED BY: RT Brad(R) May 19, 2024 4:00 [facility]07-30-2024 NoteHNO ID: [id number] Author: AIXA ALEXANDRE MD Service: ? Author [...] Paroxysmal.seeing Dr. 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 Kang Inguinal hernia, right [...] on File Prior to Visit Medication Sig Iywhksazwptpb-Cncowiev-Lmrasy (MULTIVITAMIN 50 PLUS) tab Take 1 tablet by mouth once daily. Glucosamine Sulfate (GLUCOSAMINE) 500 mg tab Take 1 tablet by mouth once daily. L gasseri/B bifidum/B longum ([place] ORAL) Take 1 capsule by mouth once [...] AP RIB/OBLS/CXR RIGHT Aixa Alexandre [facility]07-30-2024 History of Present illness Narrative* [...] on File Prior to Visit Medication Sig Miyodzwcsfvcr-Ncujqyhs-Zyspno (MULTIVITAMIN 50 PLUS) tab Take 1 tablet by mouth once daily. Glucosamine Sulfate (GLUCOSAMINE) 500 mg tab Take 1 tablet by mouth once daily. L gasseri/B bifidum/B longum ([place]ogi[place] ORAL) Take 1 capsule by mouth once [...] RIGHT Aixa Alexandre MD documented in this encounter[facility]03-[facility]23 History of Present illness Narrative* Aixa [...] Paroxysmal.seeing Dr. 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 Kang Mitral insufficiency Other [...] 1 capsule by mouth daily at bedtime. Thefzokbizags-Pywzrxaf-Djautr (MULTIVITAMIN 50 PLUS) tab Take 1 tablet by mouth once daily. Glucosamine Sulfate (GLUCOSAMINE) 500 mg tab Take 1 tablet by mouth once daily. L gasseri/B bifidum/B longum ([place]yo ORAL) Take 1 capsule by mouth once [...] Moderate Aixa Alexandre MD documented in this encounterMer[facility]11-18-2022 Miscellaneous Notes* Telephone Encounter - DEMETRA Iglesias - 09/07/2022 9:59 AM EST Patient phones requesting refills as follows: Requested Prescriptions Pending Prescriptions Disp Refills tamsulosin (FLOMAX) 0.4 mg 90 capsule 1 Sig: Take 1 capsule by mouth daily at bedtime. THEE 03/22/22 NOV No future appointment scheduled Please review and advise. DEMETRA Iglesias documented in this encounterMer[facility]06-08-2022 Miscellaneous Notes* Telephone Encounter - Shruti [...] medications. 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 documented in this encounter [facility]* Diagnosis Rib pain on right side- Primary Chest pain, unspecified documented in this encounter [facility]* Diagnosis Rib pain on right side Chest pain, unspecified [facility] Diagnosis Annual physical exam- [...] neoplasm of prostate documented in this encounter [facility] note* Diagnosis Epigastric pain- Primary Abdominal pain, epigastric Decreased appetite Anorexia Nausea Nausea alone Change in bowel movement Other symptoms involving digestive system BRBPR (bright red blood per rectum) Hemorrhage of rectum and anus documented in this encounter [facility] note* Diagnosis Gastroesophageal reflux disease, unspecified whether esophagitis present- Primary Atrial fibrillation, unspecified type (HCC) Na's pouch of intestine (HCC) Colostomy status documented in this encounter [facility] for referral (narrative)* Diagnostic Procedure Only (Routine) - Closed Specialty Diagnoses / Procedures Referred By Linda burgess Referred To Contact XR IMAGING Diagnoses Rib pain on right side Procedures XR RIBS/CHEST 3V AP RIB/OBLS/CXR RIGHT RADEX RIBS UNI W/POSTEROANT CH MINIMUM 3 VIEWS Aixa Alexandre MD [address] [place] [id number] [place] [address] Referral ID Status Reason Start Date Expiration Date V isits Requested Visits Authorized [id number] Closed Auto-Generate d Referral 05/19/2024 06/18/2025 1 1 [facility] for referral (narrative)* Diagnostic Procedure Only (Routine) - Closed Specialty Diagnoses / Procedures Referred By Contalexandro t Referred To Contact XR IMAGING Diagnoses Rib pain on right side Procedures XR RIBS/CHEST 3V AP RIB/OBLS/CXR RIGHT RADEX RIBS UNI W/POSTEROANT CH MINIMUM 3 VIEWS Aixa Alexandre MD [address] [place] [id number] [place] [address] Referral ID Status Reason Start Date Expiration Date V isits Requested Visits Authorized [id number] Closed Auto-Generate d Referral 05/19/2024 06/18/2025 1 1 [facility]Reason for referral (narrative)No reason for referral information availableWMercy Health St[facility] Work Phone: Reason for visit Narrative* Diagnostic Procedure Only (Routine) - Closed Specialty Diagnoses / Procedures Referred By Timboac t Referred To Contact XR IMAGING Diagnoses Rib pain on right side Procedures XR RIBS/CHEST 3V AP RIB/OBLS/CXR RIGHT RADEX RIBS UNI W/POSTEROANT CH MINIMUM 3 VIEWS Aixa Alexandre MD [address] [place] [address] [place] [address] Referral ID Status Reason Start Date Expiration Date V isits Requested Visits Authorized [id number] Closed Auto-Generate d Referral 05/19/2024 06/18/2025 1 1 [facility] Reason for Referral Specialty Diagnoses / Procedures Referred By Linda t Referred To Contact Colon and Rectal Surgery Diagnoses Na's pouch of intestine (HCC) History of ulcerative colitis Procedures CONSULT TO COLO-RECTAL SURGERY OFFICE/OUTPATIENT [facility] 60 MINUTES Aixa Alexandre MD [address] [place] [id number] Referral ID Status Reason Start Date Expiration Date Visits Requested Visits Authorized [id number] Authorized PCP Requested Referral 08/27/2024 08/27/2025 1 1 Specialty Diagnoses / Procedures Referred By Linda burgess Referred To Contact General Surgery Diagnoses Gastroesophageal reflux disease, unspecified whether esophagitis present Esophageal dysphagia Procedures CONSULT TO GENERAL SURGERY OFFICE/OUTPATIENT [facility] [place] 60 MINUTES Aixa Alexandre MD [address] [place], [place] [phone] Referral ID Status Reason Start Date Expiration Date Visits Requested Visits Authorized [id number] Authorized PCP Requested Referral 08/27/2024 08/27/2025 1 [...] you have a Healthcare Pow er of Frothing Machine Operator? No August 15, 2023 1:18pm Living Will Yes September 23 4:10pm Do you have a Healthcare Pow er of Frothing Machine Operator? Yes September 23, 2024 4:10pm Name of Medical Power of Frothing Machine Operator Areli Cheney ( and daughter) September 23, [...] or prosecute any alcohol or drug abuse patient.[facility] HospitalIn the event this information is protected by the Federal Confidentiality of Alcohol and Drug Abuse Patient Records regulations: The Federal rules restrict any use of the information to criminally investigate or prosecute any alcohol or drug abuse patient.[facility] HospitalIn the event this information is protected by the Federal Confidentiality of Alcohol and Drug Abuse Patient Records regulations: The Federal rules restrict any use of the information to criminally investigate or prosecute any alcohol or drug abuse patient.[facility] HospitalIn the event this information is protected by the Federal Confidentiality of Alcohol and Drug Abuse Patient Records regulations: The Federal rules restrict any use of the information to criminally investigate or prosecute any alcohol or drug abuse patient.[facility] HospitalIn the event this information is protected by the Federal Confidentiality of Alcohol and Drug Abuse Patient Records regulations: The Federal rules restrict any use of the information to criminally investigate or prosecute any alcohol or drug abuse patient.[facility] HospitalIn the event this information is protected by the Federal Confidentiality of Alcohol and Drug Abuse Patient Records regulations: The Federal rules restrict any use of the information to criminally investigate or prosecute any alcohol or drug abuse patient.[facility] HospitalIn the event this information is protected by the Federal Confidentiality of Alcohol and Drug Abuse Patient Records regulations: The Federal rules restrict any use of the information to criminally investigate or prosecute any alcohol or drug abuse patient.[facility] HospitalIn the event this information is protected by the Federal Confidentiality of Alcohol and Drug Abuse Patient Records regulations: The Federal rules restrict any use of the information to criminally investigate or prosecute any alcohol or drug abuse patient.[facility] HospitalIn the event this information is protected by the Federal Confidentiality of Alcohol and Drug Abuse Patient Records regulations: The Federal rules restrict any use of the information to criminally investigate or prosecute any alcohol or drug abuse patient.[facility] HospitalIn the event this information is protected by the Federal Confidentiality of Alcohol and Drug Abuse Patient Records regulations: The Federal rules restrict any use of the information to criminally investigate or prosecute any alcohol or drug abuse patient.[facility] HospitalIn the event this information is protected by the Federal Confidentiality of Alcohol and Drug Abuse Patient Records regulations: The Federal rules restrict any use of the information to criminally investigate or prosecute any alcohol or drug abuse patient.[facility] Reason for Visit (unrecogniz ed section [...] Care Teams (unrecognized sec tion and content) Office Support Specialist Relationship Specialty Start Date End Date Aixa Alexandre MD [address] [place], [place] [phone] PCP - General Family Practice 02/26/19 Office Support Specialist Relationship Specialty Start Date End Date Aixa Alexandre MD [address] [place], [place] [id number] PCP - General Family Medicine 02/26/19 Office Support Specialist Relationship Specialty Start Date End Date Aixa Alexandre MD [address] [place], [place] [phone] PCP - General Family Medicine 02/26/19 Office Support Specialist Relationship Specialty Start Date End Date Aixa Alexandre MD [address] [place], [place] [id number] PCP - General Family Medicine 02/26/19 Office Support Specialist Relationship Specialty Start Date End Date Aixa Alexandre MD [address] [facility] [place] [address] PCP - General Family Medicine 02/26/19 Office Support Specialist Relationship Specialty Start Date End Date Aixa Alexandre MD [address] [facility] [place] [address] PCP - General Family Medicine 02/26/19 Office Support Specialist Relationship Specialty Start Date End Date Aixa Alexandre MD [address] [facility] [address] PCP - General Family Medicine 02/26/19 Office Support Specialist Relationship Specialty Start Date End Date Aixa Alexandre MD [address] [place] [address] PCP - General Family Medicine 02/26/19 Office Support Specialist Relationship Specialty Start Date End Date Aixa Alexandre MD [address] [place] [address] PCP - General Family Medicine 02/26/19 Office Support Specialist Relationship Specialty Start Date End Date Aixa Alexandre MD [address] [facility] [place] [address] PCP - General Family Medicine 02/26/19 Team [...] Provider Active S tart: January 14, 2025 Office Support Specialist Relationship Specialty Start Date End Date Aixa Alexandre MD [address] [place], [place] [phone] PCP - General Family Medicine 02/26/19 Carmella Gomes APRN.NURSE COMPANION [address] [place], [place] [phone] Formerly [facility], [facility]1983 09/26/24 Marla Stroud SOFTWARE PROJECT ENGINEER.NURSE COMPANION [address] [place], [place] [phone] Formerly [facility], [facility] 01/11/25 Goals (unrecognized section and content) Goals may be documented in a n alternate section (unrecognized sect ion and content) No Status Records FoundNo Status Records Found INFORMATION SOURCE (unrecogn ized section and content) DATE CREATED AUTHOR 01/20/2025 [facility] DATE CREATED AUTHOR AUTHOR'S OCHOA ATION 03/01/2025 [facility] FOR RECORDS PERTAINING TO PATIENTS WHO ARE [...] BE BASED ON THE PRIMARY CLINICAL RECORDS. [facility]. provides no warranty or guarantee of the accuracy or completeness of information in this document.
[2025-04-16] MEDS: 0.9% Saline Lock 10 ML Syringe IV (22:36)
[2025-04-16] MEDS: dilTIAZem 60 MG Tablet PO (22:36)
[2025-04-16 23:11] LABS: Troponin T High Sens 4 HR < 6 ng/L (<=22)
[2025-04-17] MEDS: dilTIAZem 60 MG Tablet PO ×2 (00:10→06:06)
[2025-04-17 04:10] VITALS: BP 96/69; PULSE 90; RESP 16; TEMP 36.6; O2SAT 98
[2025-04-17 07:15] LABS: Absolute Lymphocyte Count 1.88 X10^3/uL (0.83-4.51); Absolute Neutrophil Count 3.9 X10^3/uL (2.0-7.7); Basophil# 0.03 X10^3/uL; Basophil% 0.5 % (0-1); Eosinophil# 0.22 X10^3/uL; Eosinophils% 3.4 % (0-5); Hematocrit 47.8 % (40-54); Hemoglobin 15.9 g/dL (13.0-16.5); Lymphocyte # 1.88 X10^3/ul (0.83-4.51); Lymphocyte % 29.1 % (19-41); Mean Corp Hgb Conc 33.3 g/dL (32-36); Mean Corpuscular Hgb 27.4 pg (27.0-32.0); Mean Corpuscular Volume 82.3 fL (80-94); Mean Platelet Vol. 10.3 fl (6.2-12.0); Monocyte# 0.45 X10^3/uL; NRBC Flagged by Analyzer 0 % (0-5); Neutrophil # 3.86 X10^3/uL (2.7-7.7); Neutrophil % 59.5 % (47-70); Platelet Count 192 K/mm3 (150-450); RBC Distribution Width CV 12.6 % (11.6-14.6); RBC Distribution Width SD 37.5 fl (35.1-43.9); Red Blood Count 5.81 M/mm3 (4.6-6.2); White Blood Count 6.5 K/mm3 (4.4-11.0)
[2025-04-17 07:42] LABS: ALB/GLOB Ratio 1.4 RATIO (0.9-2.4); AST(SGOT) 26 U/L (<=37); Alanine Aminotransfer ALT/SGPT 31 U/L (<=46); Albumin, Serum 3.9 g/dL (3.5-5.0); Alkaline Phosphatase 75 U/L (40-129); Anion Gap 11 (5-15); BUN 12 mg/dL (4-19); BUN/Creat Ratio 14.2 RATIO (10-20); Carbon Dioxide 22.4 mmol/L (21.0-32.0); Chloride 106 mmol/L (98-108); Creatinine, Serum 0.85 mg/dL (0.70-1.20); EST Glomerular Filtration Rate 103 (>60); Estimated Creatinine Clearance 107.78 ml/min (50-250); Globulin 2.8 g/dL (2.2-4.2); Glucose 107 mg/dL (70-99); Potassium 3.9 mmol/L (3.3-5.1); Protein, Total 6.6 g/dL (5.9-8.4); Sodium Level 140 mmol/L (133-145)
[2025-04-17 08:04] LABS: Thyroid Stim Hormone (TSH) 0.971 uIU/mL (0.300-4.200)
--- NOTE | 2025-04-17 08:25 | DCINST_ITS ---
Discharge Instructions Diet Discharge Diet: 2000 mg Sodium Diet DC O2, CPAP, BIPAP needs Home O2 Discharge instructions: No Dressing / Incision Discharge Activity: Return to Normal Activity Weight Bearing Status: Weight bearing as tolerated Dressing / Incision Call your doctor if you observe: Fever of 101 or Higher, Coldness, Increased Pain, Numbness or Tingling, Change in Color, Inability to urinate, Inability to have a bowel movement, Shortness of breath, Dizziness, Fainting spells, Swelling in the ankles, Chest pain, Prolonged hiccupping, Increased palpitations (irregular heartbeat) and Calf discomfort Follow Up Care When: IN 2 WEEKS Test Results: Test results from this visit will be discussed in further detail at your follow- up appointment, if applicable. Discharge Plan Admission Admit Date/Time: 04/16/25 20:19 Primary Reason for Your Visit: A-fib RVR Attending Provider: Vinicio Delgado Primary Care Provider: Jose Angel Alexandre Consulting Providers: Robert Osorio; Birgit Lyle Discharge Orders/Prescriptions Prescriptions: New diltiazem HCl 120 mg Capsule,Extended Release 24hr 120 mg PO DAILY 30 Days Qty: 30 2RF aspirin 81 mg tablet 81 mg PO DAILY 90 Days Qty: 90 1RF Continued glucosamine sulfate 2KCl [Glucosamine Relief] 1,000 mg tablet 2,000 mg PO DAILY Rx Instructions: administer with meals TVDeck 1.5 billion cell capsule 1 cap PO DAILY PRN (Reason: gut health) omeprazole 40 mg capsule,delayed release(DR/EC) 20 mg PO DAILY multivitamin Tablet 1 tab PO QAM Discontinued atenolol 25 mg tablet 12.5 mg PO .PRN PRN (Reason: Elevated Heart Rate) Qty: 30 1RF flecainide 100 mg tablet 100 mg PO .PRN PRN (Reason: A-fib) Qty: 14 1RF Referrals / Follow Up: Jose Angel Alexandre MD [Primary Care Provider] - Brendan Ojeda MD [Med Staff - Active Staff] - Within 1 Month (Evaluate for A- fib ablation) René Dubois CHIP MIXING MACHINE OPERATOR, CHIP MIXING MACHINE OPERATOR-C [Med Staff - Adv Practice Prof] - Within 2 Weeks Disposition Disposition (needs filled in before D/C Order can be placed): Home, Self Care
--- NOTE | 2025-04-17 08:31 | PCM.DC.SUM ---
Providers Date of Admission: 04/16/25 Date of Discharge: 04/17/25 Primary Care Physician: Dr. Jose Angel Alexandre MD Consultations 04/16/25 22:07 Consult: Cardiology Routine Consulting Provider: Robert Osorio Reason for Consult: PAF w/ RVR EMERGENT Consult: No MD Notified: Yes Date Notified: 04/16/25 Time Notified: 20:20 Method of Notification: ED Physician Initiated Reason For Visit: PAF W/RVR Diagnosis Discharge Diagnosis (1) Atrial fibrillation with RVR: Status: Acute Code(s): I48.91 - Unspecified atrial fibrillation Plan This is a 55-year-old gentleman was admitted with A-fib RVR. He is afebrile started on night around 3 PM. Patient at home at home on flecainide as needed that did not resolve the issue. Later on patient admitted in PCU. 1. A-fib RVR: Patient had last episode about 10 years ago and he required cardioversion at that time. He is not anticoagulated because of low [id number] score. Patient had Cardizem 10 mg IV bolus in the ED that dropped his blood pressure. He was ordered Cardizem 60 mg Q6 hourly but changed to Cardizem CD 120 mg daily after the discussion with the bleach boiler puller Dr. Osorio. He advised to discharge on Cardizem CD 120 mg daily and baby aspirin 81 mg daily and then follow-up outpatient [facility]. He also advised to follow-up with the EP Dr. Cardona. 2. History of chronic ulcerative colitis status post multiple surgery and then J-pouch: In the past he had instances of J-pouch it is but recently for many years he did not had any issues. His bowel is soft to liquid but that after the surgery and normal for him 3 VSD, valvular heart disease: Most recent ECHO noted 01/14/25 with normal LV size, LV systolic function normal, LVEF 65%, small membranous VSD noted. 4. Hyperglycemia, mild: Admission BMP with glucose 138, repeat 107. Follow-up with #5. DVT prophylaxis: Lovenox. Discharge medication reconciliation done. Discharge follow-up instructions completed. Discharge process discussed with the patient and all questions were answered to patient's satisfaction. Follow with PCP in 1 to 2 weeks Total time spent, exact 35 minutes on discharge meds reconciliation, examination, coordination of care with nurses and ancillary staff, review of imaging and blood test and discussion with the patient on follow-up instructions. Medications at Discharge Home Medications glucosamine sulfate 2KCl 1,000 mg tablet (Glucosamine Relief) 2,000 mg PO DAILY 06/19/22 Lactobacills gasseri-Bifidobac bifidum,longum 1.5 billion cell capsule ([place]) 1 cap PO DAILY PRN [facility] 11/12/24 omeprazole 40 mg capsule,delayed release 20 mg PO DAILY 11/12/24 multivitamin 1 tab PO QAM 04/16/25 aspirin 81 mg tablet 81 mg PO DAILY 3 months #90 tabs 04/17/25 diltiazem HCl 120 mg capsule,extended release 24 hr 120 mg PO DAILY 30 days #30 caps 04/17/25 Physical Exam Narrative Seen and examined Patient has history of A-fib diagnosed when he was 27/28 years of age. Since then mostly has been sinus rhythm except on occasions A-fib. This time he has been in A-fib for longer period of time that started on night. No chest pain or shortness of breath. History of ulcerative colitis had surgery and J-pouch in the [facility] in the past Physical General: Alert, Oriented x3, Cooperative HEENT: Atraumatic, PERRLA, EOMI, Normocephalic. Oral: No Gingival or Mucosal Lesions/ Ulcerations Neck: Supple, No JVD, Negative Carotid Bruits Chest wall/Lungs: Air entry diminished in bilateral lung bases. No crepitation/rhonchi Cardiovascular: A-fib heart rate control, Normal S1,S2, No M/G/R Abdomen: Bowel Sounds Present, Soft, Non Tender, Non-Distended. Surgical scar. Has J-pouch, internalized. : No dysuria. No renal angle tenderness. No suprapubic tenderness. Extremities: No edema, Capillary Refill Less than 3 Seconds Skin: No rashes, No breakdown Musculoskeletal: No Tenderness to Palpation of Joints or Extremities Neurological: Cranial nerves II-XII grossly intact, DTR 2+/4. No acute focal neurological deficit. Psych/Mental Status: Normal Affect, Appropriate. Weight / BMI Weight Weight: 175 lb 14.862 oz Body Mass Index (BMI) 23.8 ABG / Lab / Microbiology Data 04/17/25 06:54 04/17/25 06:54 Laboratory: Laboratory Results - last 24 hr 04/16/25 18:10: WBC 9.5, RBC 6.04, Hgb 16.5, Hct 49.6, MCV 82.1, MCH 27.3, MCHC 33.3, RDW Std Deviation 37.1, RDW Coeff of [place] 12.5, Plt Count 253, MPV 10.1, Immature Gran % (Auto) 0.400, Neut % (Auto) 64.0, Lymph % (Auto) 25.9, [place] % (Auto) 6.0, Eos % (Auto) 3.0, Baso % (Auto) 0.7, Absolute Neuts (auto) 6.1, Absolute Lymphs (auto) 2.45, Nucleated RBC % 0, Sodium 138, Potassium 4.0, Chloride 104, Carbon Dioxide 23.1, Anion Gap 12, BUN 11, Creatinine 0.97, Estim Creat Clear Calc 94.44, Est GFR (MDRD) Non-Af 92, BUN/Creatinine Ratio 11.5, Glucose 138 H, Calcium 9.3, Magnesium 1.8, Troponin T High Sens < 6 04/16/25 20:10: Troponin T Hi Sens 2 Hr < 6 04/16/25 22:20: Troponin T Hi Sens 4Hr < 6 04/17/25 06:54: WBC 6.5, RBC 5.81, Hgb 15.9, Hct 47.8, MCV 82.3, MCH 27.4, MCHC 33.3, RDW Std Deviation 37.5, RDW Coeff of [place] 12.6, Plt Count 192, MPV 10.3, Immature Gran % (Auto) 0.500, Neut % (Auto) 59.5, Lymph % (Auto) 29.1, [place] % (Auto) 7.0, Eos % (Auto) 3.4, Baso % (Auto) 0.5, Absolute Neuts (auto) 3.9, Absolute Lymphs (auto) 1.88, Nucleated RBC % 0, Sodium 140, Potassium 3.9, Chloride 106, Carbon Dioxide 22.4, Anion Gap 11, BUN 12, Creatinine 0.85, Estim Creat Clear Calc 107.78, Est GFR (MDRD) Non-Af 103, BUN/Creatinine Ratio 14.2, Glucose 107 H, Calcium 9.0, Total Bilirubin 0.40, AST 26, ALT 31, Alkaline Phosphatase 75, Total Protein 6.6, Albumin 3.9, Globulin 2.8, Albumin/Globulin Ratio 1.4, TSH 0.971 Radiography Diagnostic Testing: Radiology Impression Chest X-Ray 04/16/25 18:20 IMPRESSION: Negative Chest. Reading Location: [id number] D/C Instructions Discharge Diet: 2000 mg Sodium Diet Weight Bearing Status: Weight bearing as tolerated Call your doctor if you observe: Fever of 101 or Higher, Coldness, Increased Pain, Numbness or Tingling, Change in Color, Inability to urinate, Inability to have a bowel movement, Shortness of breath, Dizziness, Fainting spells, Swelling in the ankles, Chest pain, Prolonged hiccupping, Increased palpitations (irregular heartbeat) and Calf discomfort DC O2, CPAP, BIPAP Needs Home O2 Discharge instructions: No When: IN 2 WEEKS Meaningful Use Info Meaningful Use Meaningful Use Diagnoses (Choose all that apply): None applicable Ischemic Stroke Statin Dosing Therapy Reference: STATIN DOSE THERAPY REFERENCE: * Patients > 75 years receive moderate or high dose statin therapy. * Patients 75 years or YOUNGER should receive HIGH intensity statin dose unless contraindicated. You will be required to document reason for non-treatment if statin daily dose does not meet guidelines. HIGH DOSE STATIN THERAPY DAILY Atorvastatin > than or = to 40 mg Rosuvastatin > than or = to 20 mg Amlodipine + Atorvastatin > than or = to 2.5/40 mg Ezetimibe + Simvastatin 10/80 mg Simvastatin 80mg Discharge Plan Admission Admit Date/Time: 04/16/25 20:19 Primary Reason for Your Visit: A-fib RVR Attending Provider: Vinicio Delgado Primary Care Provider: Jose Angel Alexandre Consulting Providers: Robert Osorio; Birgit Lyle Discharge Orders/Prescriptions Prescriptions: New diltiazem HCl 120 mg Capsule,Extended Release 24hr 120 mg PO DAILY 30 Days Qty: 30 2RF aspirin 81 mg tablet 81 mg PO DAILY 90 Days Qty: 90 1RF Continued glucosamine sulfate 2KCl [Glucosamine Relief] 1,000 mg tablet 2,000 mg PO DAILY Rx Instructions: administer with meals Crest[facility] cell capsule 1 cap PO DAILY PRN (Reason: gut health) omeprazole 40 mg capsule,delayed release(DR/EC) 20 mg PO DAILY multivitamin Tablet 1 tab PO QAM Discontinued atenolol 25 mg tablet 12.5 mg PO .PRN PRN (Reason: Elevated Heart Rate) Qty: 30 1RF flecainide 100 mg tablet 100 mg PO .PRN PRN (Reason: A-fib) Qty: 14 1RF Referrals / Follow Up: Jose Angel Alexandre MD [Primary Care Provider] - Brendan Ojeda MD [Med Staff - Active Staff] - Within 1 Month (Evaluate for A-fib ablation) René Dubois NP, STUDIO SET UP WORKER-C [Med Staff - Adv Practice Prof] - Within 2 Weeks Disposition Disposition (needs filled in before D/C Order can be placed): Home, Self Care Charges/Coding Visit Charges Inpatient E&M: 53807 Disch Hosp >30min
[2025-04-17 09:10] VITALS: BP 102/70; PULSE 72; RESP 16; TEMP 36.6; O2SAT 97
[2025-04-17] MEDS: Pantoprazole Sodium 20 MG Tablet PO (09:11)
[2025-04-17] MEDS: dilTIAZem CD 120 MG Capsule PO (09:35)
[2025-04-17 11:25] VITALS: BP 107/66; PULSE 73; RESP 16; TEMP 36.3; O2SAT 97
== END 2025-04-17 11:42 | disposition home or self-care (01) ==
LOC: ED 20:15 → PCU 21:04
PROVIDERS: Admitting Provider Family Medicine; Emergency Provider Emergency Medicine; PCP Family Medicine; Visit Provider Internal Medicine
DX: I48.0 Paroxysmal atrial fibrillation (principal); K51.90 Ulcerative colitis, unspecified, without complications; Z79.899 Other long term (current) drug therapy; R73.9 Hyperglycemia, unspecified
CPT/HCPCS: 36415; 71045; 80048; 80053; 83735; 84443; 84484; 85025; 93005; 96374; 99221; 99284; A4216; G0378